=== PATIENT | female | born 1940 | race Caucasian/White ===

== ENCOUNTER 2017-08-03 09:35 | Emergency (ER) | payer OTHER ==
--- NOTE | 2017-08-03 11:55 | RAD REPORT ---
EXAM DESCRIPTION: RAD - Hip Right 2 View - 08/03/2017 11:23 am CLINICAL HISTORY: Hip pain COMPARISON: Right hip 2010. FINDINGS: AP and frog-leg views of the right hip were obtained. SI joint degenerative changes are p resent with sclerotic changes along the sacral ala and ileum. Lower lumbar degenerative changes are p resent but not adequately visualize. No fracture or acute finding of the imaged portions of the right hemipelvis. Hip joint space narrowing is present. There is spurring and sclerotic change along the superior artic ular margin. No AVN or focal femoral head abnormality seen. No fracture or acute bone process seen. D ense arterial tree calcifications are present. No periarticular mass or hematoma. No acute or destruc tive bony process seen. 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 Findings have progressed only minimally from 2011.
--- NOTE | 2017-08-03 13:50 | RAD REPORT ---
EXAM DESCRIPTION: RAD - Chest Single View - 08/03/2017 1:30 pm CLINICAL HISTORY: Fall, hip pain COMPARISON: December 2016 TECHNIQUE: AP portable chest image was obtained 1325 hours . FINDINGS: Lungs are clear. Heart and vasculature are normal. No measurable pleural effusion and no p neumothorax. Bilateral shoulder joint degenerative changes are present. Thoracic spine degenerative c hanges are present incompletely assessed. No acute bone process suspected. No acute aortic findings s uspected. IMPRESSION: No acute cardiopulmonary process. No significant change from comparison.
--- NOTE | 2017-08-03 13:51 | EKG ---
Test Date: 2017-08-03 Test Time: 12:11:15 Electrolysis Investigator: AWA MEASUREMENT RESULTS: Intervals: Rate: 56 WV: 150 QRSD: 76 QT: 474 QTc: 457 [place]: P: 49 WV: 150 QRS: -8 T: 54 INTERPRETIVE STATEMENTS: Sinus bradycardia Nonspecific ST and T wave abnormality Abnormal ECG Compared to ECG 01/05/2017 16:46:35 Left ventricular hypertrophy no longer present ST (T wave) deviation still present Electronically Signed On 08-03-17 13:50:43 CDT by Dallin Espitia
--- NOTE | 2017-08-03 13:51 | EDPHYS ---
Physician Documentation [facility] Name: Lucy Paris Age: 76 yrs Sex: Female : 1940 Arrival Date: 08/03/2017 Time: 09:36 Bed 18 Private MD: Chon Shoemaker ED Physician Aquiles Rose HPI: 08/03 12:40 This 76 yrs old Female presents to ER via Wheelchair with complaints of Hip gaby Pain. 12:40 The patient or guardian reports decreased range of motion. that occurred at home, gaby sustained from unknown reason, twisting motion. The complaints affect the right inguinal area, right iliac crest and right hip. Onset: The symptoms/episode began/occurred 2 day(s) ago. Modifying factors: The symptoms are alleviated by remaining still, the symptoms are aggravated by any movement. Associated signs and symptoms: Pertinent negatives: None. Severity of symptoms: At their worst the symptoms were mild, moderate, in the emergency department the symptoms are unchanged. The patient has not experienced similar symptoms in the past. Historical: - Allergies: 10: Demerol; iw 10:29 PENICILLINS; iw - Home Meds: 10:29 amlodipine-benzapril 10/20 mg daily [Active]; carvedilol 6.25 mg Oral tab 2 tabs 2 tabs iw in morning 1 tab in evening [Active]; doxycycline hyclate 100 mg Oral cap 1 cap once daily [Active]; glipizide 10 mg Oral tab 1 tab 2 times per day [Active]; Lantus 100 unit/mL Sub-Q soln 75 units nightly [Active]; lisinopril 40 mg Oral tab 1 tab once daily [Active]; meloxicam 15 mg Oral tab 1 tab once daily [Active]; pantoprazole 40 mg Oral TbEC 1 tab once daily [Active]; potassium chloride 10 mEq Oral cpER 1 cap 2 times per day [Active]; tolterodine 4 mg Oral cp24 1 cap once daily [Active]; torsemide 20 mg Oral tab 1 tab once daily [Active]; prednisone 5 mg Oral tab once daily [Active]; potassium chloride 10 mEq Oral cpER 1 cap once daily [Active]; clotrimazole-lozenge [Active]; - PMHx: 10:29 breast cancer; Diabetes - NIDDM; Hypertension; iw - PSHx: 10:29 breast surgery; Cholecystectomy; Knee surgery; iw - Immunization history:: Adult Immunizations up to date. - Social history:: Smoking status: Patient/guardian denies using tobacco. - Family history:: not pertinent. ROS: 12:40 Constitutional: Negative for fever, chills, and weight loss, Eyes: Negative for injury, gaby pain, redness, and discharge, ENT: Negative for injury, pain, and discharge, Neck: Negative for injury, pain, and swelling, Cardiovascular: Negative for chest pain, palpitations, and edema, Respiratory: Negative for shortness of breath, cough, wheezing, and pleuritic chest pain, Abdomen/GI: Negative for abdominal pain, nausea, vomiting, diarrhea, and constipation, Back: Negative for injury and pain, : Negative for injury, bleeding, discharge, and swelling, Skin: Negative for injury, rash, and discoloration, Neuro: Negative for headache, weakness, numbness, tingling, and seizure, Psych: Negative for depression, anxiety, suicide ideation, homicidal ideation, and hallucinations, Allergy/Immunology: Negative for hives, rash, and allergies, Endocrine: Negative for neck swelling, polydipsia, polyuria, polyphagia, and marked weight changes, Hematologic/Lymphatic: Negative for swollen nodes, abnormal bleeding, and unusual bruising. 12:40 MS/extremity: Positive for decreased range of motion, pain, of the right femoral area, right iliac crest and right hip. Exam: 12:40 Constitutional: This is a well developed, well nourished patient who is awake, alert, gaby and in no acute distress. Head/Face: Normocephalic, atraumatic. Eyes: Pupils equal round and reactive to light, extra-ocular motions intact. Lids and lashes normal. Conjunctiva and sclera are non-icteric and not injected. Cornea within normal limits. Periorbital areas with no swelling, redness, or edema. ENT: Nares patent. No nasal discharge, no septal abnormalities noted. Tympanic membranes are normal and external auditory canals are clear. Oropharynx with no redness, swelling, or masses, exudates, or evidence of obstruction, uvula midline. Mucous membranes moist. Neck: Trachea midline, no thyromegaly or masses palpated, and no cervical lymphadenopathy. Supple, full range of motion without nuchal rigidity, or vertebral point tenderness. No Meningismus. Chest/axilla: Normal chest wall appearance and motion. Nontender with no deformity. No lesions are appreciated. Cardiovascular: Regular rate and rhythm with a normal S1 and S2. No gallops, murmurs, or rubs. Normal PMI, no JVD. No pulse deficits. Respiratory: Lungs have equal breath sounds bilaterally, clear to auscultation and percussion. No rales, rhonchi or wheezes noted. No increased work of breathing, no retractions or nasal flaring. Abdomen/GI: Soft, non-tender, with normal bowel sounds. No distension or tympany. No guarding or rebound. No evidence of tenderness throughout. Back: No spinal tenderness. No costovertebral tenderness. Full range of motion. Female : Normal external genitalia. Skin: Warm, dry with normal turgor. Normal color with no rashes, no lesions, and no evidence of cellulitis. Neuro: Awake and alert, GCS 15, oriented to person, place, time, and situation. Cranial nerves II-XII grossly intact. Motor strength 5/5 in all extremities. Sensory grossly intact. Cerebellar exam normal. Normal gait. Psych: Awake, alert, with orientation to person, place and time. Behavior, mood, and affect are within normal limits. 12:40 Musculoskeletal/extremity: Extremities: noted in the right hip: decreased ROM, pain, ROM: full passive range of motion, limited active range of motion, Circulation is intact in all extremities. Sensation intact. Compartment Syndrome exam of affected extremity: is normal. Joints: the right hip displays limited range of motion, pain at rest, painful range of motion, DVT Exam: no swelling, no tenderness, negative Homans' sign noted on exam, no appreciated bluish discoloration, no erythema, no increased warmth. Vital Signs: 10:29 BP 132 / 67; Pulse 58; Resp 16; Temp 97.4; Pulse Ox 100% on R/A; Weight 81.65 kg; iw Height 5 ft. 5 in. (165.10 cm); Pain 8/10; 12:30 BP 138 / 72; Pulse 62; Resp 18; Pulse Ox 99% on R/A; em 13:37 BP 142 / 68; Pulse 59; Resp 18; Pulse Ox 99% on R/A; Pain 0/10; em 10:29 Body Mass Index 29.95 (81.65 kg, 165.10 cm) MDM: 12:04 Patient medically screened. [facility] 12:44 Data reviewed: vital signs, nurses notes, radiologic studies, CT scan, plain films. [facility] 08/03 10:30 Order name: Hip Right 2 View XRAY; Complete Time: 13:46 08/03 12:05 Order name: XRAY Chest (1 view) [facility] 08/03 12:47 Order name: Hip Right Wo Con EDIL 08/03 12:05 Order name: EKG; Complete Time: 12:06 [facility] Administered Medications: 14:19 Not Given (Physician Discretion): NS 0.9% 1000 ml IV at 125 ml/hr continuous em Disposition: 08/03/17 13:50 Discharged to Home. Impression: Pain in right hip, Type 1 diabetes mellitus. - Condition is Stable. - Discharge Instructions: Arthralgia, Arthritis, Nonspecific, Musculoskeletal Pain, Hip Pain, Arthritis, Nonspecific, [id number], Arthralgia, [id number]. - Prescriptions for Tylenol- Codeine #3 300-30 mg Oral Tablet - take 2 tablet by ORAL route every 6 hours As needed; 30 tablet. Motrin IB 200 mg Oral Tablet - take 1 tablet by ORAL route every 6 hours As needed as needed with food; 20 tablet. - Medication Reconciliation Form, Thank You Letter, Antibiotic Education, Prescription Opioid Use form. - Follow up: Chon Shoemaker MD; When: 1 - 2 days; Reason: Recheck today's complaints, Continuance of care, Re-evaluation by your physician. - Problem is new. - Symptoms have improved. Signatures: Dispatcher [employer] EDIL Aquiles Rose MD MD cha Munoz, Edgar, ALIGNER TYPEWRITER ALIGNER TYPEWRITER em Lissette Whatley, RN RN iw Corrections: (The following items were deleted from the chart) 14:19 12:05 Cardiac monitoring ordered. [facility] 14:19 12:05 Urine Dipstick-Ancillary ordered. [facility] 14:20 12:06 TROPONIN (EMERG DEPT USE ONLY)+C.LAB.BRZ ordered. EDIL EDMS 14:20 12:10 Urine Culture+BA.LAB.BRZ ordered. EDIL EDMS 14:22 12:06 BASIC METABOLIC PANEL+C.LAB.BRZ ordered. EDIL EDMS 14:22 12:06 BNP+C.LAB.BRZ ordered. EDMS EDMS 12:06 CBC+H.LAB.BRZ ordered. EDMS EDMS 12:06 CKMB+C.LAB.BRZ ordered. EDMS EDMS 12:06 CREATINE PHOSPHOKINASE+C.LAB.BRZ ordered. EDMS EDMS 12:06 HEPATIC FUNCTION+C.LAB.BRZ ordered. EDMS EDMS 12:06 MAGNESIUM+C.LAB.BRZ ordered. EDMS EDMS 12:06 PROTIME (+INR)+COAG.LAB.BRZ ordered. EDMS EDMS 12:06 PTT, ACTIVATED+COAG.LAB.BRZ ordered. EDMS EDMS 12:05 EKG - Nurse/Tech ordered. [facility] em 12:05 O2 Sat Monitoring ordered. [facility] em : 12:05 IV Saline Lock ordered. [facility] em 12:05 Labs collected and sent ordered. [facility] em : 12:05 Oxygen Per Protocol ordered. [facility] em
--- NOTE | 2017-08-03 13:51 | ER ---
Nurse's Notes [facility] Name: Lucy Paris Age: 76 yrs Sex: Female : 1940 Arrival Date: 08/03/2017 Time: 09:36 Bed 18 Private MD: Chon Shoemaker Diagnosis: Pain in right hip;Type 1 diabetes mellitus Presentation: 08/03 10:26 Presenting complaint: Child states: last night was walking and turned, felt a pop in iw right hip, has not been able to out much weight on it. Transition of care: patient was not received from another setting of care. Onset of symptoms was August 02, 2017. Initial Sepsis Screen: Does the patient meet any 2 criteria? No. Patient's initial sepsis screen is negative. Does the patient have a suspected source of infection? No. Patient's initial sepsis screen is negative. Care prior to arrival: None. 10:26 Method Of Arrival: Wheelchair iw 10:26 Acuity: KATHRYN 4 iw Historical: - Allergies: : Demerol; iw 10: PENICILLINS; iw - Home Meds: 10: amlodipine-benzapril 10/20 mg daily [Active]; carvedilol 6.25 mg Oral tab 2 tabs 2 tabs iw in morning 1 tab in evening [Active]; doxycycline hyclate 100 mg Oral cap 1 cap once daily [Active]; glipizide 10 mg Oral tab 1 tab 2 times per day [Active]; Lantus 100 unit/mL Sub-Q soln 75 units nightly [Active]; lisinopril 40 mg Oral tab 1 tab once daily [Active]; meloxicam 15 mg Oral tab 1 tab once daily [Active]; pantoprazole 40 mg Oral TbEC 1 tab once daily [Active]; potassium chloride 10 mEq Oral cpER 1 cap 2 times per day [Active]; tolterodine 4 mg Oral cp24 1 cap once daily [Active]; torsemide 20 mg Oral tab 1 tab once daily [Active]; prednisone 5 mg Oral tab once daily [Active]; potassium chloride 10 mEq Oral cpER 1 cap once daily [Active]; clotrimazole-lozenge [Active]; - PMHx: 10:29 breast cancer; Diabetes - NIDDM; Hypertension; iw - PSHx: 10:29 breast surgery; Cholecystectomy; Knee surgery; iw - Immunization history:: Adult Immunizations up to date. - Social history:: Smoking status: Patient/guardian denies using tobacco. - Family history:: not pertinent. Screenin:21 Abuse screen: Denies threats or abuse. Nutritional screening: No deficits noted. em Tuberculosis screening: No symptoms or risk factors identified. Fall Risk None identified. Assessment: 12:12 General: Appears in no apparent distress. comfortable, Behavior is calm, cooperative, em Reports was walking and turned and heard a pop in the right hip, able to stand on leg but is painful. Pain: Complains of pain in right hip. Neuro: Level of Consciousness is awake, alert, obeys commands, Oriented to person, place, time, situation. Cardiovascular: Capillary refill < 3 seconds Patient's skin is warm and dry. Respiratory: Airway is patent Respiratory effort is even, unlabored, Respiratory pattern is regular, symmetrical. GI: Abdomen is round. : No signs and/or symptoms were reported regarding the genitourinary system. EENT: No signs and/or symptoms were reported regarding the EENT system. Derm: Skin is intact, Skin is pink, warm \T\ dry. Musculoskeletal: Range of motion: limited in right hip. 12:15 Reassessment: Patient appears in no apparent distress at this time. I agree with above iw assessment by Rui Evans LVN. 12:30 Reassessment: Patient appears in no apparent distress at this time. Patient and/or em family updated on plan of care and expected duration. Pain level reassessed. Patient is alert, oriented x 3, equal unlabored respirations, skin warm/dry/pink. pt family request no IV until CT of hip is resulted, Dr. Rose notified, will hold off on IV and labs. Vital Signs: 10:29 BP 132 / 67; Pulse 58; Resp 16; Temp 97.4; Pulse Ox 100% on R/A; Weight 81.65 kg; iw Height 5 ft. 5 in. (165.10 cm); Pain 8/10; 12:30 BP 138 / 72; Pulse 62; Resp 18; Pulse Ox 99% on R/A; em 13:37 BP 142 / 68; Pulse 59; Resp 18; Pulse Ox 99% on R/A; Pain 0/10; em 10:29 Body Mass Index 29.95 (81.65 kg, 165.10 cm) ED Course: 09:36 Patient arrived in ED. mr 09:37 Chon Shoemaker MD is Private Physician. mr 10:27 Triage completed. iw 10:29 Arm band placed on. iw 11:20 X-ray completed. Portable x-ray completed in exam room. Patient tolerated procedure ml well. 11:23 Hip Right 2 View XRAY In Process Unspecified. EDMS 12:03 Aquiles Rose MD is Attending Physician. gaby 12:14 Rui Evans LVN is Primary Nurse. em 12:16 EKG done, by auto technician mechanic. reviewed by Aquiles Rose MD. at1 12:20 Patient has correct armband on for positive identification. Bed in low position. Call em light in reach. Side rails up X2. Adult w/ patient. 12:26 Radiology exam delayed due to patient is not appropriately dressed for the exam at this ml time. 13:27 X-ray completed. Portable x-ray completed in exam room. Patient tolerated procedure sw well. 13:28 XRAY Chest (1 view) In Process Unspecified. EDMS 13:39 Hip Right Wo Con In Process Unspecified. EDMS 13:50 Chon Shoemaker MD is Referral Physician. gaby 14:21 No provider procedures requiring assistance completed. Patient did not have IV access em during this emergency room visit. Administered Medications: 14:19 Not Given (Physician Discretion): NS 0.9% 1000 ml IV at 125 ml/hr continuous em Outcome: 13:50 Discharge ordered by . gaby 14:25 Discharged to home via wheelchair. em 14:25 Condition: good 14:25 Discharge instructions given to patient, Instructed on discharge instructions, follow up and referral plans. medication usage, Demonstrated understanding of instructions, follow-up care, medications, Prescriptions given X 2. 14:29 Patient left the ED. em Signatures: Dispatcher [employer] EDMS Aquiles Rose MD MD cha Rivera, Maria mr Rui Evans LVN LVN em Lissette Whatley, Sammi Chen RN, Amanda, joint cutter machine EKG Tat1 Maame Payan
--- NOTE | 2017-08-03 13:56 | RAD REPORT ---
EXAM DESCRIPTION: CT - Hip Right Wo Con - 08/03/2017 1:39 pm CLINICAL HISTORY: Hip pain following the low-impact trauma. Pain out of proportion to exam findings. COMPARISON: Right hip films same date TECHNIQUE: Axial 2 millimeter thick images of the right hip joint was obtained. Sagittal and coronal reconstruction images were generated and reviewed. FINDINGS: No fracture of the femoral head, neck or intertrochanteric region and no AVN or other foca l femoral head abnormality seen. Femoral head maintains smooth rounded contour. There are degenerativ e changes along the superior acetabular rim not likely did trigger an acute onset of pain symptoms. P atient has SI joint degenerative changes that are only partially imaged. Sacral ala is partially imag ed with no fracture identifiable. No periarticular mass or hematoma. No skeletal muscle or other significant soft tissue finding seen. Arterial calcifications are present. IMPRESSION: Hip joint degenerative changes are present but no fracture, AVN or acute finding identif iable.
== END 2017-08-03 14:29 | disposition home or self-care (01) ==
LOC: ER 09:35
DX: M25.551 Pain in right hip (principal); E10.8 Type 1 diabetes mellitus with unspecified complications; I10 Essential (primary) hypertension
CPT/HCPCS: 71045; 73700; 93005; 99283

== ENCOUNTER 2017-10-28 11:00 | Observation (INO) | payer OTHER ==
--- NOTE | 2017-10-28 11:55 | RAD REPORT ---
EXAM DESCRIPTION: GLODavt Single View10/28/2017 11:48 am CLINICAL HISTORY: Breast cancer COMPARISON: July 2017 FINDINGS: The lungs appear clear of acute infiltrate. The heart is mildly enlarged IMPRESSION: No acute abnormalities displayed
--- NOTE | 2017-10-28 12:03 | RAD REPORT ---
EXAM DESCRIPTION: CT - Head Brain Wo Cont - 10/28/2017 11:55 am CLINICAL HISTORY: Dizziness COMPARISON: December 2016 TECHNIQUE: Computed axial tomography of the head was obtained. IV contrast was not requested. All CT scans are performed using dose optimization technique as appropriate and may include automated exposure control or mA/KV adjustment according to patient size. FINDINGS: An intracranial bleed is not seen . The ventricles are normal in caliber. No extra-axial fluid collection is noted. Mild low-density areas within periventricular, deep and sub cortical white matter likely represent ischemic changes secondary to small vessel disease. Coarse vascular calcifications are present Fluid within the sinuses/ mastoids is not seen. IMPRESSION: No acute intracranial abnormality is seen. If patient's symptoms persist MRI of the bra in would be recommended.
[2017-10-28 12:35] LABS: Absolute Lymphocytes (CBC) 1.8 K/uL (0.7-4.9); Absolute Monocytes 0.9 K/uL (0.1-1.3); Absolute Neutrophil 9.2 K/uL (1.8-8.0); Basophils % 0.5 % (0-1.3); Eosinophils % 1.1 % (0-4.4); Hematocrit 34.9 % (36.0-45.0); Lymphocytes % 14.9 % (15.3-44.8); MCH 27.9 pg (27.0-35.0); MCV 83.7 fL (80-100); MPV 8.6 fL (7.6-11.3); Monocytes % 7.4 % (3.3-12.3); RBC Red Blood Cell Count 4.17 M/uL (3.86-4.86)
[2017-10-28 12:39] LABS: Protime INR 1.13
--- NOTE | 2017-10-28 12:47 | EKG ---
Test Date: 2017-10-28 Test Time: 12:22:06 Fingerprint Technician: AWA MEASUREMENT RESULTS: Intervals: Rate: 64 MA: 160 QRSD: 74 QT: 428 QTc: 441 [place]: P: 25 MA: 160 QRS: -12 T: 43 INTERPRETIVE STATEMENTS: Sinus rhythm with premature atrial complexes Minimal voltage criteria for LVH, may be normal variant Nonspecific ST abnormality Abnormal ECG Compared to ECG 08/03/2017 12:11:15 Atrial premature complex(es) now present Left ventricular hypertrophy now present Sinus bradycardia no longer present ST (T wave) deviation still present Electronically Signed On 10-28-17 12:47:07 CDT by Dallin Espitia
[2017-10-28 12:56] LABS: ALT/SGPT 15 U/L (12-78); AST/SGOT 14 U/L (15-37); Albumin 3.4 g/dL (3.4-5.0); Alkaline Phosphatase 70 U/L (45-117); BUN Blood Urea Nitrogen 16 mg/dL (7-18); Bicarbonate 32 mmol/L (21-32); Bilirubin Direct 0.1 mg/dL (0-0.2); Bilirubin Total 0.4 mg/dL (0.2-1.0); CKMB Creatine Kinase MB < 1.0 ng/mL (0.3-3.6); Creatine Phosphokinase 60 U/L (26-192); Glucose Level 168 mg/dL (74-106); NT PRO-BNP 576 pg/mL (<450); Potassium 3.9 mmol/L (3.5-5.1); Protein, Total 6.7 g/dL (6.4-8.2); Sodium Level 137 mmol/L (136-145)
[2017-10-28 12:57] LABS: Magnesium 1.2 mg/dL (1.8-2.4)
[2017-10-28] MEDS ORDERED: Magnesium Sulfate 1gm IVPB 1 GM/50 ML BAG IV ONE (13:15)
[2017-10-28] MEDS ORDERED: NA CHLORIDE 0.9% 500 ML ONE (13:59)
--- NOTE | 2017-10-28 15:41 | ER ---
Nurse's Notes [facility] Name: Lucy Paris Age: 77 yrs Sex: Female : 1940 Arrival Date: 10/28/2017 Time: 11:04 Bed 13 Private MD: Chon Shoemaker Diagnosis: Dizziness and giddiness;Hypotension Presentation: 10/28 11:14 Presenting complaint: Patient states: " I have been having dizziness for a while now but over this last week it has been worse." Pt reports falling over the weekend, was assisted by EMS but was not taken for treatment, pt reports intermittent dizziness and nausea. Transition of care: patient was not received from another setting of care. Onset of symptoms was October 28, 2017. Risk Assessment: Do you want to hurt yourself or someone else? Patient reports no desire to harm self or others. Initial Sepsis Screen: Does the patient meet any 2 criteria? No. Patient's initial sepsis screen is negative. Does the patient have a suspected source of infection? No. Patient's initial sepsis screen is negative. Care prior to arrival: None. 11:14 Method Of Arrival: Wheelchair ph 11:14 Acuity: KATHRYN 3 ph Historical: - Allergies: 11:19 Demerol; ph 11:19 PENICILLINS; ph - Home Meds: 11:33 mycophenolate mofetil 500 mg oral tab 1 tabs 2 times per day [Active]; prednisone 10 mg ph Oral tab once daily [Active]; clotrimazole 10 mg mucous membrane troc 1 tab 5 times per day [Active]; potassium chloride 10 mEq Oral cpER 1 cap 2 times per day [Active]; doxycycline hyclate 100 mg Oral cap 1 cap once daily [Active]; tolterodine 4 mg oral cp24 1 cap once daily [Active]; torsemide 20 mg oral tab 1 tab once daily [Active]; meloxicam 15 mg oral tab 1 tab once daily [Active]; pantoprazole 40 mg oral TbEC 1 tab once daily [Active]; amlodipine-benazepril 10-20 mg oral cap 1 cap once daily [Active]; carvedilol 6.25 mg oral tab 2 tabs in morning and 1 tab in evening [Active]; - PMHx: 11:19 breast cancer; Diabetes - NIDDM; Hypertension; ph - PSHx: 11:19 breast surgery; Cholecystectomy; Knee surgery; ph - Immunization history:: Adult Immunizations unknown. - Social history:: Smoking status: Patient/guardian denies using tobacco. - Ebola Screening: : No symptoms or risks identified at this time. Screenin:35 Abuse screen: Denies threats or abuse. Denies injuries from another. Nutritional jl7 screening: No deficits noted. Tuberculosis screening: No symptoms or risk factors identified. Fall Risk Fall in past 12 months (25 points). IV access (20 points). Total More Fall Scale indicates High Risk Score (45 or more points). Fall prevention measures have been instituted. Side Rails Up X 2 Placed Close to Nursing Station Frequent Obs/Assessments Occuring Family Present and informed to notify staff if the need to leave the bedside As available patient and family educated on Fall Prevention Program and Strategies. Assessment: 11:30 Reassessment: Pt at CT. jl7 12:00 General: Appears in no apparent distress. comfortable, Behavior is calm, cooperative, jl7 appropriate for age. Pain: Denies pain. Neuro: Level of Consciousness is awake, alert, obeys commands, Oriented to person, place, time, situation, Speech is normal, Facial symmetry appears normal, Reports dizziness, "For a while now. I'm not dizzy right now but I was earlier.". Cardiovascular: Patient's skin is warm and dry. Respiratory: Airway is patent Respiratory effort is even, unlabored, Respiratory pattern is regular, symmetrical. GI: No signs and/or symptoms were reported involving the gastrointestinal system. : No signs and/or symptoms were reported regarding the genitourinary system. EENT: No signs and/or symptoms were reported regarding the EENT system. Derm: Skin is pink, warm \\T\\ dry. Bruising that is green, yellow, on right knee and right acosta. Musculoskeletal: No signs and/or symptoms reported regarding the musculoskeletal system. 13:00 Reassessment: No changes from previously documented assessment. Patient and/or family jl7 updated on plan of care and expected duration. Pain level reassessed. Patient is alert, oriented x 3, equal unlabored respirations, skin warm/dry/pink. 13:40 Reassessment: Provider at bedside discussing plan of care. jl7 Vital Signs: 11:16 BP 113 / 71; Pulse 65; Resp 16; Temp 98.2; Pulse Ox 96% on R/A; Weight 82.55 kg; Height ph 5 ft. 5 in. (165.10 cm); 12:15 BP 98 / 59; Pulse 64; Resp 16; Pulse Ox 97% on R/A; jl7 12:34 BP 94 / 65; Pulse 64; Resp 16 S; Pulse Ox 98% on R/A; Pain 0/10; jl7 13:00 BP 96 / 52; Pulse 66; Resp 18 S; Pulse Ox 99% on R/A; jl7 14:00 BP 90 / 66; Pulse 67; Resp 18; Pulse Ox 98% ; jl7 15:00 BP 112 / 57; Pulse 66; Resp 16; Pulse Ox 100% ; jl7 16:00 BP 101 / 52; Pulse 68; Resp 16; Pulse Ox 98% ; jl7 16:56 BP 101 / 69; Pulse 66; Resp 16; Pulse Ox 100% ; jl7 17:42 BP 114 / 56; Pulse 70; Resp 16; Pulse Ox 99% ; jl7 11:16 Body Mass Index 30.29 (82.55 kg, 165.10 cm) ph ED Course: 11:04 Patient arrived in ED. sb2 11:04 Chon Shoemaker MD is Private Physician. sb2 11:16 Triage completed. ph 11:19 Arm band placed on. ph 11:21 Ben Be PA is PHCP. jmm 11:21 Manolo Delgadillo MD is Attending Physician. jmm 11:46 Leopoldo Aparicio, FRANDY is Primary Nurse. jl7 11:46 XRAY Chest (1 view) In Process Unspecified. EDMS 11:46 X-ray completed. Portable x-ray completed in exam room. Patient tolerated procedure sw well. 11:54 CT completed. Patient tolerated procedure well. Patient moved to CT. Patient moved back mw3 from CT. 11:55 CT Head Brain wo Cont In Process Unspecified. EDMS 12:05 Initial lab(s) drawn, by me, sent to lab. Inserted saline lock: 22 gauge in left jl7 forearm, using aseptic technique. Blood collected. 12:35 Patient has correct armband on for positive identification. Placed in gown. Bed in low jl7 position. Call light in reach. Side rails up X2. monitoring analyst on. Pulse ox on. NIBP on. Warm blanket given. 12:40 EKG done, by opto mechanical technician. reviewed by Ben ENAMORADO. at1 12:57 Notified Nurse Practitioner and/or Physician Counter Clerk of a critical lab result(s), dm5 1.2. 15:38 Chon Shoemaker MD is Hospitalizing Provider. [facility] 16:45 Repeat lab(s) drawn. by wy, sent to lab. [facility] 18:35 No provider procedures requiring assistance completed. Patient admitted, IV remains in jl7 place. Administered Medications: 13:20 Drug: Magnesium Sulfate 1 grams Route: IVPB; Infused Over: 1 hrs; Site: left forearm; 7 14:20 Follow up: Response: No adverse reaction; IV Status: Completed infusion [facility] 13:59 Drug: NS 0.9% 500 ml Route: IV; Rate: bolus; Site: left forearm; 7 14:45 Follow up: Response: No adverse reaction; IV Status: Completed infusion [facility] Outcome: 15:40 Decision to Hospitalize by Provider. [facility] 18:35 Admitted to Tele accompanied by tech, family with patient, via wheelchair, room 229, jl7 with chart, Report called to FRANDY Morrison 18:35 Condition: stable 18:35 Discharge instructions given to patient, family, Instructed on the need for admit, Demonstrated understanding of instructions. 18:36 Patient left the ED. [facility] Signatures: Dispatcher [employer] EDMS Neha Badillo, RN RN dm5 Ben Be PA PA María boyd, casino floor runner EKG Tat1 Jennifer Oh, RN RN Maame Payan Jahala, RN RN jl7 Judith Swift sb2 Ernestina Love mw3
--- NOTE | 2017-10-28 15:41 | EDPHYS ---
Physician Documentation [facility] Name: Lucy Paris Age: 77 yrs Sex: Female : 1940 Arrival Date: 10/28/2017 Time: 11:04 Bed 13 Private MD: Chon Shoemaker ED Physician Manolo Delgadillo HPI: 10/28 11:43 This 77 yrs old Female presents to ER via Wheelchair with complaints of jmm Dizziness, Doesn't Feel Right, FALLING. 11:43 The patient presents with dizziness. Onset: The symptoms/episode began/occurred jmm chronic. Context: occurred at home, occurred while the patient was walking. Associated signs and symptoms: Pertinent negatives: chest pain, confusion, headache, numbness, shortness of breath. This is a 77 year old female with a history of htn that presents to the ED with dizziness, weakness, malaise. The patient states that on Thursday evening she collapsed after getting up from using the restroom. Patient states she has had worsening dizziness, malaise, states that she does not feel right. Patient denies chest pain, abdominal pain, or shortness of breath. . Historical: - Allergies: 11:19 Demerol; ph 11:19 PENICILLINS; ph - Home Meds: 11:33 mycophenolate mofetil 500 mg oral tab 1 tabs 2 times per day [Active]; prednisone 10 mg ph Oral tab once daily [Active]; clotrimazole 10 mg mucous membrane troc 1 tab 5 times per day [Active]; potassium chloride 10 mEq Oral cpER 1 cap 2 times per day [Active]; doxycycline hyclate 100 mg Oral cap 1 cap once daily [Active]; tolterodine 4 mg oral cp24 1 cap once daily [Active]; torsemide 20 mg oral tab 1 tab once daily [Active]; meloxicam 15 mg oral tab 1 tab once daily [Active]; pantoprazole 40 mg oral TbEC 1 tab once daily [Active]; amlodipine-benazepril 10-20 mg oral cap 1 cap once daily [Active]; carvedilol 6.25 mg oral tab 2 tabs in morning and 1 tab in evening [Active]; - PMHx: 11:19 breast cancer; Diabetes - NIDDM; Hypertension; ph - PSHx: 11:19 breast surgery; Cholecystectomy; Knee surgery; ph - Immunization history:: Adult Immunizations unknown. - Social history:: Smoking status: Patient/guardian denies using tobacco. - Ebola Screening: : No symptoms or risks identified at this time. ROS: 11:43 Eyes: Negative for injury, pain, redness, and discharge, Cardiovascular: Negative for jmm chest pain, palpitations, and edema, Respiratory: Negative for shortness of breath, cough, wheezing, and pleuritic chest pain, Abdomen/GI: Negative for abdominal pain, nausea, vomiting, diarrhea, and constipation, Back: Negative for injury and pain. 11:43 Constitutional: Positive for malaise. 11:43 Neuro: Positive for dizziness, near syncope. 11:43 All other systems are negative. Exam: 11:43 Constitutional: This is a well developed, well nourished patient who is awake, alert, jmm and in no acute distress. Head/Face: atraumatic. Chest/axilla: Normal chest wall appearance and motion. Cardiovascular: Regular rate and rhythm. No edema appreciated Respiratory: Normal respirations, no respiratory distress appreciated Abdomen/GI: Non distended, soft Back: Normal ROM 11:43 Respiratory: the patient does not display signs of respiratory distress, Respirations: normal, Breath sounds: are clear throughout. 11:43 Skin: Appearance: Color: normal in color. 11:43 Neuro: Orientation: is normal, Mentation: is normal, Memory: is normal, Cerebellar function: normal finger to nose testing, Gait: is steady. 11:43 Psych: Behavior/mood is pleasant, cooperative. Vital Signs: 11:16 BP 113 / 71; Pulse 65; Resp 16; Temp 98.2; Pulse Ox 96% on R/A; Weight 82.55 kg; Height ph 5 ft. 5 in. (165.10 cm); 12:15 BP 98 / 59; Pulse 64; Resp 16; Pulse Ox 97% on R/A; jl7 12:34 BP 94 / 65; Pulse 64; Resp 16 S; Pulse Ox 98% on R/A; Pain 0/10; jl7 13:00 BP 96 / 52; Pulse 66; Resp 18 S; Pulse Ox 99% on R/A; jl7 14:00 BP 90 / 66; Pulse 67; Resp 18; Pulse Ox 98% ; jl7 15:00 BP 112 / 57; Pulse 66; Resp 16; Pulse Ox 100% ; jl7 16:00 BP 101 / 52; Pulse 68; Resp 16; Pulse Ox 98% ; jl7 16:56 BP 101 / 69; Pulse 66; Resp 16; Pulse Ox 100% ; jl7 17:42 BP 114 / 56; Pulse 70; Resp 16; Pulse Ox 99% ; jl7 11:16 Body Mass Index 30.29 (82.55 kg, 165.10 cm) ph MDM: 11:35 Patient medically screened. [facility] 11:43 ED course: I discussed the patient with Dr. Shoemaker whom accepts admission for further [facility] evaluation due to concerns of medication induced hypotension vs TIA. . 15:36 Data reviewed: vital signs, nurses notes, lab test result(s), EKG, radiologic studies, [facility] CT scan, plain films. Counseling: I had a detailed discussion with the patient and/or guardian regarding: the historical points, exam findings, and any diagnostic results supporting the discharge/admit diagnosis, lab results, radiology results, the need for further work-up and treatment in the hospital. 15:50 ED course: I discussed the patient with Dr. Shoemaker whom accepted admission. . [facility] 10/28 11:36 Order name: Basic Metabolic Panel; Complete Time: 13: [facility] 10/28 11:36 Order name: CBC with Diff; Complete Time: 13: [facility] 10/28 11:36 Order name: Ckmb; Complete Time: 13: [facility] 10/28 11:36 Order name: CPK; Complete Time: 13: [facility] 10/28 11:36 Order name: LFT's; Complete Time: 13: [facility] 10/28 11:36 Order name: Magnesium; Complete Time: 13: [facility] 10/28 11:36 Order name: NT PRO-BNP; Complete Time: 13: [facility] 10/28 11:36 Order name: PT-INR; Complete Time: 13: [facility] 10/28 11:36 Order name: Ptt, Activated; Complete Time: 13: [facility] 10/28 11:36 Order name: Troponin (emerg Dept Use Only); Complete Time: 13: [facility] 10/28 15:55 Order name: Basic Metabolic Panel [facility] 10/28 15:55 Order name: Basic Metabolic Panel [facility] 10/28 15:55 Order name: CBC with Automated Diff EDMS 10/28 15:55 Order name: CBC with Automated Diff EDMS 10/28 11:36 Order name: XRAY Chest (1 view); Complete Time: 12:04 [facility] 10/28 11:36 Order name: EKG; Complete Time: 11:37 [facility] 10/28 11:36 Order name: Cardiac monitoring; Complete Time: 12:31 [facility] 10/28 11:36 Order name: EKG - Nurse/Tech; Complete Time: 12:30 [facility] 10/28 11:36 Order name: IV Saline Lock; Complete Time: 12:30 [facility] 10/28 11:36 Order name: CT Head Brain wo Cont; Complete Time: 12:04 [facility] 10/28 15:55 Order name: Regular EDMS 10/28 15:55 Order name: EKG Electrocardiogram [facility] 10/28 15:55 Order name: EKG Electrocardiogram EDMS 10/28 15:55 Order name: EKG Electrocardiogram [facility] 10/28 15:55 Order name: EKG Electrocardiogram [facility] 10/28 15:55 Order name: Troponin I [facility] 10/28 15:55 Order name: Troponin I; Complete Time: 17:51 EDMS 10/28 15:55 Order name: Troponin I [facility] 10/28 11:36 Order name: Labs collected and sent; Complete Time: 12:30 [facility] 10/28 11:36 Order name: O2 Per Protocol; Complete Time: 12:30 [facility] 10/28 11:36 Order name: O2 Sat Monitoring; Complete Time: 12:30 [facility] 10/28 11:36 Order name: Urine Dipstick-Ancillary (obtain specimen); Complete Time: 16:55 jm Administered Medications: 13:20 Drug: Magnesium Sulfate 1 grams Route: IVPB; Infused Over: 1 hrs; Site: left forearm; jl7 14:20 Follow up: Response: No adverse reaction; IV Status: Completed infusion jl7 13:59 Drug: NS 0.9% 500 ml Route: IV; Rate: bolus; Site: left forearm; jl7 14:45 Follow up: Response: No adverse reaction; IV Status: Completed infusion jl7 Disposition: 10/28/17 15:40 Hospitalization ordered by Chon Shoemaker for Observation. Preliminary diagnosis are Dizziness and giddiness, Hypotension. - Bed requested for Telemetry/MedSurg (observation). - Status is Observation. jl7 - Condition is Stable. - Problem is new. - Symptoms are unchanged. UTI on Admission? Yes Addendum: 10/30/2017 19:57 Co-signature as Attending Physician, Manolo Delgadillo MD I agree with the assessment and w a plan of care. Signatures: Dispatcher [employer] EDKesha Aparicio, RN RN Ben Garcia PA PA jmm Hall, Patricia RN RN Leopoldo Aparicio RN RN jl7 Manolo Delgadillo MD MD wa Corrections: (The following items were deleted from the chart) 10/28 17:09 15:40 Hospitalization Ordered by Chon Shoemaker MD for Observation. Preliminary diagnosis is Dizziness and giddiness; Hypotension. Bed requested for Telemetry/MedSurg (observation). Status is Observation. Condition is Stable. Problem is new. Symptoms are unchanged. UTI on Admission? Yes. [facility] 18:36 17:09 10/28/2017 15:40 Hospitalization Ordered by Chon Shoemaker MD for Observation. jl7 Preliminary diagnosis is Dizziness and giddiness; Hypotension. Bed requested for Telemetry/MedSurg (observation). Status is Observation. Condition is Stable. Problem is new. Symptoms are unchanged. UTI on Admission? Yes. 18:44 15:36 Counseling: I had a detailed discussion with the patient and/or guardian allison regarding: the historical points, exam findings, and any diagnostic results supporting the discharge/admit diagnosis, the need for outpatient follow up, to return to the emergency department if symptoms worsen or persist or if there are any questions or concerns that arise at home, allison
[2017-10-28] MEDS ORDERED: ONDANSETRON 4 MG/2 ML VIAL IV PRN (15:52)
[2017-10-28] MEDS ORDERED: ACETAMINOPHEN 500 MG TAB PO PRN (15:52)
[2017-10-28] MEDS: NITROFURAN MACRO 100 MG CAP PO SCH (22:21)
[2017-10-29 05:11] LABS: Absolute Lymphocytes (CBC) 1.7 K/uL (0.7-4.9); Absolute Monocytes 0.7 K/uL (0.1-1.3); Basophils % 0.5 % (0-1.3); Eosinophils % 1.3 % (0-4.4); Hematocrit 32.1 % (36.0-45.0); Lymphocytes % 22.7 % (15.3-44.8); MCH 28.4 pg (27.0-35.0); MCV 84.1 fL (80-100); MPV 8.7 fL (7.6-11.3); Monocytes % 8.8 % (3.3-12.3); RBC Red Blood Cell Count 3.81 M/uL (3.86-4.86)
[2017-10-29 05:37] LABS: Potassium 3.7 mmol/L (3.5-5.1)
[2017-10-29 08:30] LABS: Urine Appearance CLEAR; Urine Bilirubin NEGATIVE (NEG); Urine Blood NEGATIVE (NEG); Urine Color YELLOW; Urine Glucose 2+ (NEG); Urine Protein NEGATIVE (NEG); Urine Urobilinogen 0.2 mg/dL (0.2-1.0); Urine pH 7.5 (5.0-7.0)
[2017-10-29 08:47] LABS: Urine Microscopic Reflex NO UMIC
[2017-10-29] MEDS: NITROFURAN MACRO 100 MG CAP PO SCH ×2 (10:06→18:18)
[2017-10-29] MEDS: ASPIRIN EC 81 MG TAB PO SCH (10:07)
[2017-10-29] MEDS ORDERED: BISACODYL 10 MG RECTAL SUPP PR PRN (14:32)
[2017-10-29] MEDS: [UNRECOGNIZED DRUG - OTHER] PO SCH (21:00)
[2017-10-29] MEDS: HOME MED 1 EA UNK (Mycophenolate Mofetil [Cellcept] 500 MG) PO SCH (21:00)
[2017-10-29] MEDS: CA CITRATE PO SCH (21:00)
[2017-10-29] MEDS: B6 PO SCH (21:00)
[2017-10-29] MEDS: VIT D3 PO SCH (21:00)
[2017-10-29] MEDS: MGOX PO SCH (21:00)
[2017-10-29] MEDS: CARVEDILOL 3.125 MG TAB PO SCH (22:02)
[2017-10-29] MEDS: CLOTRIMAZOLE 10 MG TROCHE PO SCH (22:02)
--- NOTE | 2017-10-30 03:16 | HP ---
Date of Admission: 10/28/2017 Entrance Complaint: Fall, general malaise, vertigo. History Of Present Illness: The patient has had numerous falls over the past few months. She was ho spitalized about 6 months ago with possibility of having vasovagal syncope and/or hypotensive episode . Her blood pressure at that time was modified as well as her diabetic medicine. She states she has noticed some increase in vertigo, positional especially, over the past few weeks and has also had so me decreased mental function. She continues to live alone. Past History: The patient has a long history of IDDM in the relatively good control using various re gimens. She also has a history of hypertension which has also been difficult to control, however, wi th modifications this has been relatively good. In fact, this is a possibility as this is being too old and causing her present status. Social History: Nonsmoker and nondrinker. Family History: Noncontributory. Physical Examination: General: The patient is a slightly obese, elderly female, orientated. Vital Signs: Stable. Head and Neck: Normocephalic. Pupils are equal and reactive to light and accommodation. Fundi negative. Trachea midline. Thyroid not palpable. ENT: Negative. Chest: Clear to P and A. Breasts: Pendulous, negative. Cardiovascular: PMI midclavicular line. Heart: Sounds normal. Peripheral pulses are present and equal bilaterally. Abdomen: Obese. No organomegaly. Bowel sounds present. Extremities: Good tone and movement. Bilateral reflexes physiologic. Neurological: Deferred. Rectal: Deferred. Pelvic: Deferred. Impression: Vasovagal syncope, possible transient ischemic attack; hypertension and hypotension, poo r control; insulin-dependent diabetes mellitus, good control. Plan: The patient will be admitted and monitored. Make sure there is no CULINARY CHEF problem. Neurology will be consulted. Depending on the results of some of these studies and blood pressure, various changes may be made to her medications. HR/MODL Voice ID: [id number]
[2017-10-30 05:25] LABS: Absolute Lymphocytes (CBC) 1.5 K/uL (0.7-4.9); Absolute Monocytes 0.7 K/uL (0.1-1.3); Absolute Neutrophil 4.9 K/uL (1.8-8.0); Basophils % 0.6 % (0-1.3); Eosinophils % 1.6 % (0-4.4); Hematocrit 31.7 % (36.0-45.0); Lymphocytes % 20.9 % (15.3-44.8); MCH 28.6 pg (27.0-35.0); MCV 84.2 fL (80-100); MPV 8.6 fL (7.6-11.3); Monocytes % 9.2 % (3.3-12.3); RBC Red Blood Cell Count 3.76 M/uL (3.86-4.86)
[2017-10-30 06:30] LABS: Potassium 3.7 mmol/L (3.5-5.1)
[2017-10-30] MEDS: CLOTRIMAZOLE 10 MG TROCHE PO SCH ×5 (08:00→21:00)
[2017-10-30] MEDS ORDERED: INSULIN DETEMIR 100 UNIT/1 ML INSULIN SQ SCH ×3 (09:00→21:00)
[2017-10-30] MEDS: HOME MED 1 EA UNK (Mycophenolate Mofetil [Cellcept] 500 MG) PO SCH (09:00)
[2017-10-30] MEDS: CA CITRATE PO SCH (09:00)
[2017-10-30] MEDS: VIT D3 PO SCH (09:00)
[2017-10-30] MEDS: MGOX PO SCH (09:00)
[2017-10-30] MEDS: B6 PO SCH (09:00)
[2017-10-30] MEDS: [UNRECOGNIZED DRUG - OTHER] PO SCH (09:00)
[2017-10-30] MEDS: NITROFURAN MACRO 100 MG CAP PO SCH ×2 (09:35→17:55)
[2017-10-30] MEDS: ASPIRIN EC 81 MG TAB PO SCH (09:35)
[2017-10-30] MEDS: PANTOPRAZOLE 40MG TABLET PO SCH (09:36)
[2017-10-30] MEDS: TOLTERODINE LA 4 MG CAP PO SCH (09:36)
[2017-10-30] MEDS: CARVEDILOL 3.125 MG TAB PO SCH ×2 (09:36→20:54)
[2017-10-30] MEDS: predniSONE 10 MG TAB PO SCH (09:36)
[2017-10-30] MEDS: CITRACAL PLUS PO SCH ×2 (14:58→20:50)
[2017-10-30] MEDS ORDERED: D50W 25 GM/50 ML SYRINGE IV PRN (16:17)
[2017-10-30] MEDS ORDERED: GLUCAGON 1 MG/VIAL IM PRN (16:17)
[2017-10-30] MEDS: INSULIN -REGULAR HUMAN 50 UNIT/0.5 ML ML SQ SCH ×2 (17:54→21:54)
[2017-10-30] MEDS ORDERED: MAGNESIUM SULFATE 1 gm IVPB 1 GM/100 ML BAG IV ONE (20:00)
[2017-10-30] MEDS ORDERED: Magnesium Sulfate 1gm IVPB 1 GM/50 ML BAG IV ONE (20:48)
[2017-10-30] MEDS: MYCOPHENOLATE 500 MG PO SCH (20:53)
[2017-10-31 05:37] LABS: Magnesium 2.1 mg/dL (1.8-2.4); Potassium 3.5 mmol/L (3.5-5.1)
[2017-10-31] MEDS: INSULIN -REGULAR HUMAN 50 UNIT/0.5 ML ML SQ SCH ×2 (07:30→11:30)
[2017-10-31] MEDS: CLOTRIMAZOLE 10 MG TROCHE PO SCH ×3 (08:00→14:00)
[2017-10-31] MEDS: MYCOPHENOLATE 500 MG PO SCH (10:17)
[2017-10-31] MEDS: CITRACAL PLUS PO SCH ×2 (10:18→14:50)
[2017-10-31] MEDS: NITROFURAN MACRO 100 MG CAP PO SCH (10:18)
[2017-10-31] MEDS: TOLTERODINE LA 4 MG CAP PO SCH (10:18)
[2017-10-31] MEDS: PANTOPRAZOLE 40MG TABLET PO SCH (10:19)
[2017-10-31] MEDS: ASPIRIN EC 81 MG TAB PO SCH (10:19)
[2017-10-31] MEDS: CARVEDILOL 3.125 MG TAB PO SCH (10:19)
[2017-10-31] MEDS: predniSONE 10 MG TAB PO SCH (10:19)
--- NOTE | 2017-10-31 16:18 | PN ---
The patient states she feels considerably better as far as her constipation. Episodes of vertigo hav e also improved. I think the more likely diagnosis of TIA and syncope or near syncope is the change in her blood pressure, it has been monitored on a couple of occasions and she obviously has some hypo tensive episodes. Therefore, her doses of blood pressure medicine will be adjusted prior to her disc harge, which should be done tomorrow. Blood sugars are also elevated and therefore we will increase her insulin, place her on a sliding scale. Magnesium also needs to be replaced. HR/MODL Voice ID: [id number] Report ID: [id number]
--- NOTE | 2017-11-01 16:55 | PN ---
Date of Progress Note: 10/31/2017 Subjective: The patient continues to improve. Her blood sugars are much better on her increased ins ulin dose. However, she is still somewhat uncertain about her medication. This was gone over with h er in some detail by myself and the nurse. After much discussion, we decided a home health would be of value as she still lives alone repeated. Repeated blood pressure readings do confirm a diagnosis of syncope for her falls related to postural hypotension. Therefore, modification of her medicine tang s been made. She will be followed up as an outpatient in my office in 48 hours. HR/MODL Voice ID: [id number] Report ID: [id number]
== END 2017-10-31 16:12 | disposition home health service (06) ==
LOC: ER 11:00 → ERHOLD 15:50 → 2ND 17:56
PROVIDERS: ADMIT Family Medicine; ATTEND Family Medicine
DX: I95.1 Orthostatic hypotension (principal); K59.00 Constipation, unspecified; I10 Essential (primary) hypertension; E11.9 Type 2 diabetes mellitus without complications; E66.9 Obesity, unspecified; Z68.30 Body mass index [BMI] 30.0-30.9, adult
CPT/HCPCS: 36415 ×3; 70450; 71045; 80048 ×4; 80076; 81003; 82550; 82553; 82962 ×4; 83036; 83735 ×4; 83880; 84484 ×3; 85025 ×3; 85610; 85730; 93005; 96365; 99285; G0378 ×2; J2405; J3475 ×2; 96361; J7512

== ENCOUNTER 2018-09-07 14:28 | Inpatient (IN) | payer OTHER ==
--- OUTSIDE RECORDS SUMMARY | 2018-09-07 14:31 | XMS REPORT ---
:1940 [facility] Address [address] [place] [id number] Care Team Providers Name Role Phone Unavailable Unavailable Unavailable Problems This patient has no known problems. Allergies, Adverse Reactions, Alerts This patient has no known allergies or adverse reactions. Medications This patient has no known medications.
--- NOTE | 2018-09-07 16:06 | RAD REPORT ---
EXAM DESCRIPTION: RAD - Tib Fib Left - 09/07/2018 3:41 pm CLINICAL HISTORY: PAIN Pain, foot infection, bruising. COMPARISON: None FINDINGS: Left tibia/ fibula, ankle and foot- multiple projections are submitted The bones are demineralized. Prominent vascular calcifications are evident. Focal soft tissue swellin g is seen pretibial soft tissues of the upper leg. Generalized swelling of the foot and ankle region also noted. Evidence of previous bunionectomy seen. Large posterior and plantar calcaneal spurs. A fracture is not apparent. Radiographic findings of os teomyelitis are not seen. IMPRESSION: Significant soft tissue swelling without fracture or evidence of osteomyelitis at this t johanny.
[2018-09-07 16:19] LABS: Absolute Lymphocytes (CBC) 1.1 K/uL (0.7-4.9); Absolute Monocytes 0.8 K/uL (0.1-1.3); Absolute Neutrophil 14.4 K/uL (1.8-8.0); Basophils % 0.2 % (0-1.3); Eosinophils % 0.4 % (0-4.4); Hematocrit 37.1 % (36.0-45.0); Lymphocytes % 6.5 % (15.3-44.8); MPV 8.3 fL (7.6-11.3); Monocytes % 4.6 % (3.3-12.3); RBC Red Blood Cell Count 4.34 M/uL (3.86-4.86)
[2018-09-07 16:43] LABS: Albumin 3.4 g/dL (3.4-5.0); Bilirubin Total 0.4 mg/dL (0.2-1.0); Potassium 4.1 mmol/L (3.5-5.1); Protein, Total 7.2 g/dL (6.4-8.2)
[2018-09-07] MEDS ORDERED: CLINDAMYCIN INJ 600 MG in NA CHLORIDE 0.9% 50 ML IV ONE (17:00)
--- NOTE | 2018-09-07 17:14 | EDPHYS ---
Physician Documentation [facility] Name: Lucy Paris Age: 77 yrs Sex: Female : 1940 Arrival Date: 09/07/2018 Time: 14:30 Bed 8 Private MD: Chon Shoemaker ED Physician Lanny Murray HPI: 09/07 15:43 This 77 yrs old Female presents to ER via Wheelchair with complaints of Leg ma2 Infection. 15:43 fell 2 weeks ago here with left foot pain and persistent swelling and discoloration . ma2 The complaints affect the left foot and left leg. Onset: The symptoms/episode began/occurred gradually, 1 week(s) ago. The complaints affect the medial aspect of left calf, left medial ankle and medial aspect of left foot. Historical: - Allergies: 14:39 Demerol; hb 14:39 PENICILLINS; hb - Home Meds: 14:43 mycophenolate mofetil 500 mg Oral tab 1 tabs 2 times per day [Active]; tw2 amlodipine-benazepril 10-20 mg Oral cap 1 cap once daily [Active]; carvedilol 6.25 mg Oral tab 2 tabs in morning and 1 tab in evening [Active]; clotrimazole 10 mg mucous membrane troc 1 tab 5 times per day [Active]; doxycycline hyclate 100 mg Oral cap 1 cap once daily [Active]; meloxicam 15 mg Oral tab 1 tab once daily [Active]; pantoprazole 40 mg Oral TbEC 1 tab once daily [Active]; potassium chloride 10 mEq Oral cpER 1 cap 2 times per day [Active]; prednisone 10 mg Oral tab once daily [Active]; tolterodine 4 mg Oral cp24 1 cap once daily [Active]; torsemide 20 mg Oral tab 1 tab once daily [Active]; - PMHx: 14:46 breast cancer; Diabetes - NIDDM; Hypertension; ph 14:43 Diabetes - NIDDM; breast cancer; Hypertension; tw2 - PSHx: 14:46 breast surgery; Cholecystectomy; Knee surgery; ph 14:43 breast surgery; Cholecystectomy; Knee surgery; tw2 - Immunization history:: Adult Immunizations up to date. - Social history:: Smoking status: Patient/guardian denies using tobacco, Patient/guardian denies using alcohol, street drugs, The patient lives with family. - Ebola Screening: : No symptoms or risks identified at this time. - Family history:: not pertinent. ROS: 15:43 Constitutional: Negative for fever, chills, and weight loss, Neck: Negative for injury, ma2 pain, and swelling, Cardiovascular: Negative for chest pain, palpitations, and edema, Respiratory: Negative for shortness of breath, cough, wheezing, and pleuritic chest pain, Abdomen/GI: Negative for abdominal pain, nausea, diarrhea, and constipation, : Negative for injury, bleeding, discharge, and swelling, Skin: Negative for injury, rash, and discoloration, Neuro: Negative for headache, weakness, numbness, tingling, and seizure. 15:43 MS/extremity: Positive for contusion, decreased range of motion, ecchymosis, erythema, warmth, Negative for abrasion, paresthesias, puncture. Exam: 15:43 Constitutional: This is a well developed, well nourished patient who is awake, alert, ma2 and in no acute distress. Head/Face: Normocephalic, atraumatic. Chest/axilla: Normal chest wall appearance and motion. Nontender with no deformity. No lesions are appreciated. Cardiovascular: Regular rate and rhythm with a normal S1 and S2. No gallops, murmurs, or rubs. Normal PMI, no JVD. No pulse deficits. Respiratory: Lungs have equal breath sounds bilaterally, clear to auscultation and percussion. No rales, rhonchi or wheezes noted. No increased work of breathing, no retractions or nasal flaring. Abdomen/GI: Soft, non-tender, with normal bowel sounds. No distension or tympany. No guarding or rebound. No evidence of tenderness throughout. Skin: Warm, dry with normal turgor. Normal color with no rashes, no lesions, and no evidence of cellulitis. Neuro: Awake and alert, GCS 15, oriented to person, place, time, and situation. Cranial nerves II-XII grossly intact. Motor strength 5/5 in all extremities. Sensory grossly intact. Cerebellar exam normal. Normal gait. 15:43 Musculoskeletal/extremity: Extremities: grossly normal except: tenderness, left foot and leg edema and cellulitis no fluctuance , ROM: intact in all extremities, Pulses: are normal with no appreciated deficits, Sensation intact. Compartment Syndrome exam of affected extremity: is normal. Weight bearing: can bear weight with assistance only, DVT Exam: No signs of deep vein thrombosis. Vital Signs: 14:38 BP 131 / 65; Pulse 66; Resp 16; Temp 98.9; Pulse Ox 100% on R/A; Weight 83.91 kg; hb Height 5 ft. 4 in. (162.56 cm); Pain 8/10; 15:40 BP 138 / 70; Pulse 66; Resp 17; Pulse Ox 99% on R/A; tw2 16:40 BP 135 / 66; Pulse 66; Resp 17; Pulse Ox 99% on R/A; tw2 17:41 BP 125 / 75; Pulse 65; Resp 17; Pulse Ox 100% on R/A; tw2 18:49 BP 131 / 58; Pulse 65; Resp 17; Pulse Ox 99% on R/A; tw2 19:36 BP 126 / 66; Pulse 65; Resp 18; Temp 97.1; Pulse Ox 99% ; aa1 14:38 Body Mass Index 31.75 (83.91 kg, 162.56 cm) hb MDM: 15:03 Patient medically screened. ma2 17:12 Differential diagnosis: left leg cellulitis elevated wbc. Data reviewed: vital signs, mn2 nurses notes. Counseling: I had a detailed discussion with the patient and/or guardian regarding: the historical points, exam findings, and any diagnostic results supporting the discharge/admit diagnosis, the presence of at least one elevated blood pressure reading (>120/80) during this emergency department visit, the need for further work-up and treatment in the hospital. Response to treatment: the patient's symptoms have markedly improved after treatment. 09/07 15:19 Order name: Lactate [facility] 09/07 15:19 Order name: Blood Culture Adult (2) [facility] 09/07 15:19 Order name: CBC with Diff [facility] 09/07 15:19 Order name: CMP; Complete Time: 16:57 [facility] 09/07 15:22 Order name: Lactate; Complete Time: 16:57 [facility] 09/07 16:24 Order name: CBC Smear Scan [facility] 09/07 15:21 Order name: Foot Left 3 View XRAY [facility] 09/07 15:21 Order name: Ankle Left 3 View XRAY [facility] 09/07 15:21 Order name: Tib Fib Left XRAY; Complete Time: 16:13 ma 09/07 15:22 Order name: IV Start; Complete Time: 16:09 tw2 09/07 15:38 Order name: Social Service Consult; Complete Time: 17:13 [facility] 09/07 17:13 Order name: Diet Ada 1800 Selvin; Complete Time: 17:13 tw2 Administered Medications: 16:25 Drug: Clindamycin 600 mg Route: IVPB; Infused Over: 30 mins; Site: left antecubital; tw2 17:02 Follow up: Response: No adverse reaction; IV Status: Completed infusion tw2 Disposition: 09/07/18 17:13 Hospitalization ordered by Vanessa Ospina for Observation. Preliminary diagnosis is Cellulitis and acute lymphangitis of other parts of limb - left leg. - Bed requested for Telemetry/MedSurg (observation). - Status is Observation. aa1 - Condition is Stable. - Problem is new. - Symptoms have improved. UTI on Admission? No Signatures: Dispatcher [employer] [facility] Barbara Rogers bd Vanesa Brewster RN RN aa1 Jennifer Oh RN RN Daisy Olivares RN FRANDY Eva Avila RN RN tw2 Lanny Murray MD MD ma2 Corrections: (The following items were deleted from the chart) 18:23 17:13 Hospitalization Ordered by Vanessa Ospina MD for Observation. Preliminary diagnosis bd is Cellulitis and acute lymphangitis of other parts of limb - left leg. Bed requested for Telemetry/MedSurg (observation). Status is Observation. Condition is Stable. Problem is new. Symptoms have improved. UTI on Admission? No. ma2 20:00 18:23 09/07/2018 17:13 Hospitalization Ordered by Vanessa Ospina MD for Observation. aa1 Preliminary diagnosis is Cellulitis and acute lymphangitis of other parts of limb - left leg. Bed requested for Telemetry/MedSurg (observation). Status is Observation. Condition is Stable. Problem is new. Symptoms have improved. UTI on Admission? No. bd
--- NOTE | 2018-09-07 17:14 | ER ---
Nurse's Notes [facility] Name: Lucy Paris Age: 77 yrs Sex: Female : 1940 Arrival Date: 09/07/2018 Time: 14:30 Bed 8 Private MD: Chon Shoemaker Diagnosis: Cellulitis and acute lymphangitis of other parts of limb-left leg Presentation: 09/07 14:36 Presenting complaint: Sent by Dr. Shoemaker for left foot infection and left lower leg hb swelling x 2 weeks. Transition of care: patient was not received from another setting of care. Onset of symptoms is unknown. Risk Assessment: Do you want to hurt yourself or someone else? Patient reports no desire to harm self or others. Care prior to arrival: None. 14:36 Method Of Arrival: Wheelchair hb 14:36 Acuity: KATHRYN 3 hb 14:41 Initial Sepsis Screen: Does the patient meet any 2 criteria? No. Patient's initial tw2 sepsis screen is negative. Does the patient have a suspected source of infection? Yes: Skin breakdown/wound. Historical: - Allergies: 14:39 Demerol; hb 14:39 PENICILLINS; hb - Home Meds: 14:43 mycophenolate mofetil 500 mg Oral tab 1 tabs 2 times per day [Active]; tw2 amlodipine-benazepril 10-20 mg Oral cap 1 cap once daily [Active]; carvedilol 6.25 mg Oral tab 2 tabs in morning and 1 tab in evening [Active]; clotrimazole 10 mg mucous membrane troc 1 tab 5 times per day [Active]; doxycycline hyclate 100 mg Oral cap 1 cap once daily [Active]; meloxicam 15 mg Oral tab 1 tab once daily [Active]; pantoprazole 40 mg Oral TbEC 1 tab once daily [Active]; potassium chloride 10 mEq Oral cpER 1 cap 2 times per day [Active]; prednisone 10 mg Oral tab once daily [Active]; tolterodine 4 mg Oral cp24 1 cap once daily [Active]; torsemide 20 mg Oral tab 1 tab once daily [Active]; - PMHx: 14:46 breast cancer; Diabetes - NIDDM; Hypertension; ph 14:43 Diabetes - NIDDM; breast cancer; Hypertension; tw2 - PSHx: 14:46 breast surgery; Cholecystectomy; Knee surgery; ph 14:43 breast surgery; Cholecystectomy; Knee surgery; tw2 - Immunization history:: Adult Immunizations up to date. - Social history:: Smoking status: Patient/guardian denies using tobacco, Patient/guardian denies using alcohol, street drugs, The patient lives with family. - Ebola Screening: : No symptoms or risks identified at this time. - Family history:: not pertinent. Screenin:41 Abuse screen: Denies threats or abuse. Nutritional screening: No deficits noted. tw2 Tuberculosis screening: No symptoms or risk factors identified. Fall Risk None identified. Assessment: 14:40 General: Appears in no apparent distress. well groomed, Behavior is calm, cooperative, tw2 appropriate for age. Pain: Complains of pain in left foot and left leg. Neuro: Level of Consciousness is awake, alert, obeys commands, Oriented to person, place, time, situation. Cardiovascular: Heart tones S1 S2 Patient's skin is warm and dry. Respiratory: Airway is patent Respiratory effort is even, unlabored, Respiratory pattern is regular, symmetrical, Breath sounds are clear bilaterally. GI: No signs and/or symptoms were reported involving the gastrointestinal system. Abdomen is round non-distended, Bowel sounds present X 4 quads. : No signs and/or symptoms were reported regarding the genitourinary system. EENT: No signs and/or symptoms were reported regarding the EENT system. Derm: Skin is red, Bruising that is bright red, dark purple, on left foot and left leg with swelling to the left leg and foot as well.. Musculoskeletal: Circulation, motion, and sensation intact. Swelling present in left foot and left leg. 15:40 Reassessment: Patient appears in no apparent distress at this time. No changes from tw2 previously documented assessment. Patient and/or family updated on plan of care and expected duration. Pain level reassessed. Patient is alert, oriented x 3, equal unlabored respirations, skin warm/dry/pink. 16:22 Reassessment: pts daughter would like Social Service consult to set up medical POA and tw2 dnr, etc, message left for Lola Phani at this time, informed that pt could potentially be admitted for her to come see tomorrow. 17:42 Reassessment: Patient appears in no apparent distress at this time. No changes from tw2 previously documented assessment. Patient and/or family updated on plan of care and expected duration. Pain level reassessed. Patient is alert, oriented x 3, equal unlabored respirations, skin warm/dry/pink. 18:50 Reassessment: Patient appears in no apparent distress at this time. No changes from tw2 previously documented assessment. Patient and/or family updated on plan of care and expected duration. Pain level reassessed. Patient is alert, oriented x 3, equal unlabored respirations, skin warm/dry/pink. 19:31 Reassessment: Patient appears in no apparent distress at this time. Patient and/or aa1 family updated on plan of care and expected duration. Pain level reassessed. Patient is alert, oriented x 3, equal unlabored respirations, skin warm/dry/pink. Attempted to call report; nurse will call back. 19:38 Reassessment: Report given to Katherine Dasilva RN on 2nd floor. aa1 Vital Signs: 14:38 BP 131 / 65; Pulse 66; Resp 16; Temp 98.9; Pulse Ox 100% on R/A; Weight 83.91 kg; hb Height 5 ft. 4 in. (162.56 cm); Pain 8/10; 15:40 BP 138 / 70; Pulse 66; Resp 17; Pulse Ox 99% on R/A; tw2 16:40 BP 135 / 66; Pulse 66; Resp 17; Pulse Ox 99% on R/A; tw2 17:41 BP 125 / 75; Pulse 65; Resp 17; Pulse Ox 100% on R/A; tw2 18:49 BP 131 / 58; Pulse 65; Resp 17; Pulse Ox 99% on R/A; tw2 19:36 BP 126 / 66; Pulse 65; Resp 18; Temp 97.1; Pulse Ox 99% ; aa1 14:38 Body Mass Index 31.75 (83.91 kg, 162.56 cm) hb ED Course: 14:30 Patient arrived in ED. rg4 14:31 Chon Shoemaker MD is Private Physician. rg4 14:38 Triage completed. hb 14:39 Arm band placed on. hb 14:40 Eva Avila RN is Primary Nurse. tw2 14:41 Bed in low position. Call light in reach. Adult w/ patient. Pulse ox on. NIBP on. tw2 15:02 Lanny Murray MD is Attending Physician. ma2 15:40 X-ray completed. Portable x-ray completed in exam room. Patient tolerated procedure ls3 well. 15:43 Foot Left 3 View XRAY In Process Unspecified. EDMS 15:43 Ankle Left 3 View XRAY In Process Unspecified. EDMS 15:43 Tib Fib Left XRAY In Process Unspecified. EDMS 15:54 Missed attempt(s): 22 gauge in left forearm. Bleeding controlled, band aid applied, tw2 catheter tip intact. 16:14 Initial lab(s) drawn, by me, sent to lab. Inserted saline lock: 22 gauge in left jb1 antecubital area, using aseptic technique. Blood collected. 16:19 Lactate Sent. tw2 16:19 Blood Culture Adult (2) Sent. tw2 17:13 Vanessa Ospina MD is Hospitalizing Provider. ma2 18:50 No provider procedures requiring assistance completed. tw2 18:58 Report given to FRANDY Alexis. tw2 19:59 Patient admitted, IV remains in place. aa1 Administered Medications: 16:25 Drug: Clindamycin 600 mg Route: IVPB; Infused Over: 30 mins; Site: left antecubital; tw2 17:02 Follow up: Response: No adverse reaction; IV Status: Completed infusion tw2 Outcome: 17:13 Decision to Hospitalize by Provider. ma2 19:59 Admitted to Med/surg accompanied by tech, family with patient, via wheelchair, room aa1 229, with chart, Report called to Katherine Dasilva Rn 19:59 Condition: good 19:59 Discharge instructions given to patient, family, Instructed on the need for admit, Demonstrated understanding of instructions. 20:00 Patient left the ED. aa1 Signatures: Dispatcher [employer] EDMS Caleb Ramirez jb1 Vanesa Brewster RN RN aa1 Jennifer Oh RN RN ph Baxter, Heather, RN RN Eva Avila RN RN tw2 Zayra Marinelli rg4 Lanny Murray MD MD ma2 Angelita Smith ls3
[2018-09-07 17:46] LABS: Blood Morphology Comment NOT SEEN (NOT SEEN); Platelet Estimate ADEQ; Urine White Blood Cell Casts OK
[2018-09-07] MEDS ORDERED: VANCOMYCIN/NS 1 gm 1 GM/250 ML BAG IVPB SCH (20:29)
[2018-09-07] MEDS ORDERED: ACETAMINOPHEN 500 MG TAB PO PRN (20:29)
[2018-09-07] MEDS ORDERED: ONDANSETRON 4 MG/2 ML VIAL IV PRN (20:29)
[2018-09-07] MEDS ORDERED: CEFEPIME 2 GM VIAL IV SCH (21:00)
[2018-09-07] MEDS: NA CHLORIDE 0.9% 1,000 ML IV SCH (21:01)
[2018-09-07] MEDS ORDERED: VANCOMYCIN 1.5 GM in NA CHLORIDE 0.9% 500 ML IV SCH (22:30)
[2018-09-07] MEDS ORDERED: CEFEPIME 2 GM VIAL ONE (22:45)
[2018-09-07] MEDS ORDERED: VANCOMYCIN 1 GM/VIAL ONE (22:45)
[2018-09-07] MEDS ORDERED: VANCOMYCIN 500 MG/VIAL ONE (22:51)
[2018-09-07] MEDS ORDERED: NA CHLORIDE 0.9% 500 ML ONE (22:51)
[2018-09-07] MEDS ORDERED: NA CHLORIDE 0.9% 100 ML ONE (22:55)
[2018-09-07] MEDS: INSULIN -REGULAR HUMAN 50 UNIT/0.5 ML ML SQ SCH (23:10)
--- NOTE | 2018-09-08 03:33 | HP ---
Date of Admission: 09/07/2018 Code Status: Full. Primary Care Physician: Chon Shoemaker MD Chief Complaint: Erythema and redness of the left lower extremity. History Of Present Illness: The patient is a 77-year-old female with past medical history of hyperte nsion, diabetes and is now well controlled, mild cognitive disorder, who was in her usual state of he alth until approximately one week ago when the patient had a mechanical fall and injured her left low er extremity and had development of a hematoma. The patient had pain on the ankle, medial aspect of the foot, and the leg itself. The patient saw her primary care physician and was started on doxycycl ine, however, has worsened with progressive redness, pain, swelling, and hematoma; therefore, the pat iemaurisio came into the ER for further evaluation. She denies any fevers or chills. The patient's sympto ms are constant, moderate. In the ER, her vital signs were stable. She was afebrile. Her white cou nt was elevated at 16,000. X-rays were done, which ruled out any fractures. It should be noted that the patient went to [facility] after the fall a week ago and was evaluated over there and no fractu res were found at that point. The patient was started on IV clindamycin and referred for admission f or cellulitis. When seen in the ER, she was awake, alert, oriented x3, in some mild distress. Past Medical History: Hypertension, diabetes, history of breast cancer. Past Surgical History: Surgery on the breast for cancer, cholecystectomy, knee surgery. Allergies: MEPERIDINE AND PENICILLIN. Medications: List reviewed. Social History: The patient denies any tobacco use or alcohol use. No illicit drug use. The patien deya lives with her granddaughter. The patient does need some assistance with her activities of daily l iving, has been having memory problems as well. Family History: No significant premature coronary artery disease in the family. Review of Systems: Ten-point system reviewed, negative except as per HPI. Physical Examination: Vital Signs: Blood pressure 131/65, pulse 66, respirations 16, O2 100% on room air, temperature 98.9 . BMI is 31. General: Awake, alert, oriented x3. Elderly female, in some mild distress due to pain. HEENT: Normocephalic, atraumatic. PERRLA. EOMI. Moist mucous membranes. Oropharynx is clear. Co njunctivae anicteric. Neck: Supple. No JVD. Trachea midline. CV: S1, S2. Regular rate and rhythm. Peripheral pulses present bilaterally. Respiratory: Moving air well bilaterally. No wheezing or stridor. No use of accessory muscles. Gastrointestinal: Abdomen is soft, nontender, nondistended. Positive bowel sounds. No guarding or rigidity. Extremities: No clubbing or cyanosis. Left lower extremity edema. No calf tenderness. Neurologic: Cranial nerves II through XII intact grossly. No focal neurological deficit. Speech is normal. Skin: Left lower extremity erythema, swelling, warm to touch. The patient also has hematoma on the anterior left lower extremity and ecchymosis that spreads from the toes and up towards the knee. PSYCHIATRIC: Mood is okay. Affect is flat. Insight and judgment are fair. Laboratory Data: WBC 16.3, H and H 11.6 and 37.1, platelets 228, neutrophils 88%. Sodium 138, potas sium 4.1, chloride 100, CO2 30, BUN 14, creatinine 0.98, glucose 210, lactate 1.8, calcium 9.1. Imaging: Tib-fib on the left along with ankle and foot images show significant soft tissue swelling without fracture, evidence of osteomyelitis at this time. Assessment: A 77-year-old female with: 1.Cellulitis of the left lower extremity, failed outpatient treatment with doxycycline. The patient had taken 7 days worth of antibiotics. We will start on IV antibiotics. Follow up with culture res ults. 2.Hematoma, left lower extremity, due to fall. 3.Status post mechanical fall. We will obtain PT evaluation. The patient may benefit from fdc facility placement. 4.Essential hypertension. We will resume home medications as appropriate. 5.Diabetes mellitus type 2, not well controlled with hyperglycemia with long-term use of insulin. R esume home medications, insulin dose. Once medications are reconciled, we will start on sliding scal e insulin and monitor blood glucose levels. 6.Obesity, BMI 30. 7.Deep venous thrombosis prophylaxis with SCDs. No chemical anticoagulation due to recent fall, ecc hymosis. We will place SCDs. Plan: Admit the patient to Med-Surg, place as inpatient. We will transfer service to Dr. Shoemaker on ce he is back in town tomorrow. SA/MODL Voice ID: [id number]
[2018-09-08 06:19] LABS: Absolute Lymphocytes (CBC) 2.1 K/uL (0.7-4.9); Absolute Monocytes 0.9 K/uL (0.1-1.3); Absolute Neutrophil 7.9 K/uL (1.8-8.0); Basophils % 0.5 % (0-1.3); Eosinophils % 1.3 % (0-4.4); Hematocrit 31.9 % (36.0-45.0); Lymphocytes % 19.1 % (15.3-44.8); MPV 8.8 fL (7.6-11.3); Monocytes % 8.4 % (3.3-12.3); RBC Red Blood Cell Count 3.76 M/uL (3.86-4.86)
[2018-09-08 06:42] LABS: Potassium 3.4 mmol/L (3.5-5.1)
[2018-09-08] MEDS: INSULIN -REGULAR HUMAN 50 UNIT/0.5 ML ML SQ SCH ×4 (07:30→21:00)
--- NOTE | 2018-09-08 08:57 | RAD REPORT ---
EXAM DESCRIPTION: US - Extremity Venous Uni Ltd - 09/08/2018 8:23 am CLINICAL HISTORY: swelling, rule out DVT Leg swelling and edema. COMPARISON: EXTREMITY NONVASCULAR dated 07/06/2013 FINDINGS: Left lower extremity venous system was interrogated with Doppler technique. Normal flow, c ompressibility and augmentation was noted. There is no DVT present. IMPRESSION: No evidence of left lower extremity deep venous thrombosis.
[2018-09-08] MEDS: TRAMADOL HCL 50 MG TAB PO PRN (09:23)
[2018-09-08] MEDS: CEFEPIME/SWI 2gm 2 GM/20 ML SYR IV SCH ×2 (09:23→22:00)
--- NOTE | 2018-09-08 10:09 | RAD REPORT ---
EXAM DESCRIPTION: RAD - Ankle Left 3 View - 09/07/2018 3:41 pm CLINICAL HISTORY: PAIN Pain, foot infection, bruising. COMPARISON: None FINDINGS: Left tibia/ fibula, ankle and foot- multiple projections are submitted The bones are demineralized. Prominent vascular calcifications are evident. Focal soft tissue swellin g is seen pretibial soft tissues of the upper leg. Generalized swelling of the foot and ankle region also noted. Evidence of previous bunionectomy seen. Large posterior and plantar calcaneal spurs. A fracture is not apparent. Radiographic findings of os teomyelitis are not seen. IMPRESSION: Significant soft tissue swelling without fracture or evidence of osteomyelitis at this t johanny.
--- NOTE | 2018-09-08 10:10 | RAD REPORT ---
EXAM DESCRIPTION: RAD - Foot Left 3 View - 09/07/2018 3:44 pm CLINICAL HISTORY: PAIN Pain, foot infection, bruising. COMPARISON: None FINDINGS: Left tibia/ fibula, ankle and foot- multiple projections are submitted The bones are demineralized. Prominent vascular calcifications are evident. Focal soft tissue swellin g is seen pretibial soft tissues of the upper leg. Generalized swelling of the foot and ankle region also noted. Evidence of previous bunionectomy seen. Large posterior and plantar calcaneal spurs. A fracture is not apparent. Radiographic findings of os teomyelitis are not seen. IMPRESSION: Significant soft tissue swelling without fracture or evidence of osteomyelitis at this t johanny.
[2018-09-08] MEDS: CARVEDILOL 6.25 MG TAB PO SCH (21:57)
[2018-09-08] MEDS: POTASSIUM CL SA 10 MEQ TAB PO SCH (21:58)
[2018-09-08] MEDS: VANCOMYCIN 1.5 GM in NA CHLORIDE 0.9% 500 ML IV SCH (22:35)
[2018-09-08] MEDS: NA CHLORIDE 0.9% 1,000 ML IV SCH (23:09)
[2018-09-09 06:23] LABS: Absolute Lymphocytes (CBC) 1.4 K/uL (0.7-4.9); Absolute Monocytes 0.8 K/uL (0.1-1.3); Absolute Neutrophil 6.4 K/uL (1.8-8.0); Basophils % 0.8 % (0-1.3); Eosinophils % 1.5 % (0-4.4); Hematocrit 31.7 % (36.0-45.0); Lymphocytes % 15.9 % (15.3-44.8); MPV 8.6 fL (7.6-11.3); Monocytes % 9.1 % (3.3-12.3); RBC Red Blood Cell Count 3.71 M/uL (3.86-4.86)
[2018-09-09 06:32] LABS: Potassium 3.6 mmol/L (3.5-5.1)
[2018-09-09] MEDS: INSULIN -REGULAR HUMAN 50 UNIT/0.5 ML ML SQ SCH ×4 (07:30→21:05)
[2018-09-09] MEDS ORDERED: TORSEMIDE 10 MG PO SCH (09:00)
[2018-09-09] MEDS ORDERED: HOME MED 1 EA UNK (Cholecalciferol (Vitamin D3) [Vitamin D3] 1,000 UNIT) PO SCH (09:00)
[2018-09-09] MEDS: VITAMIN D 1000 UNIT TAB PO SCH (09:03)
[2018-09-09] MEDS: VITAMIN B COMPLEX 1 CAP PO SCH (09:03)
[2018-09-09] MEDS: POTASSIUM CL SA 10 MEQ TAB PO SCH ×2 (09:04→21:06)
[2018-09-09] MEDS: TORSEMIDE 20 MG TAB PO SCH (09:04)
[2018-09-09] MEDS: CALCIUM CARBONATE 500 MG TAB PO SCH (09:05)
[2018-09-09] MEDS: CARVEDILOL 12.5 MG TAB PO SCH (09:05)
[2018-09-09] MEDS: PANTOPRAZOLE 40MG TABLET PO SCH (09:08)
[2018-09-09] MEDS: CEFEPIME/SWI 2gm 2 GM/20 ML SYR IV SCH ×2 (09:08→21:05)
[2018-09-09] MEDS: NA CHLORIDE 0.9% 1,000 ML IV SCH (16:33)
[2018-09-09] MEDS: CARVEDILOL 6.25 MG TAB PO SCH (21:06)
[2018-09-09] MEDS: VANCOMYCIN 1.5 GM in NA CHLORIDE 0.9% 500 ML IV SCH (22:00)
[2018-09-10] MEDS: NA CHLORIDE 0.9% 1,000 ML IV SCH ×2 (01:49→15:09)
[2018-09-10 06:36] LABS: Absolute Lymphocytes (CBC) 1.2 K/uL (0.7-4.9); Absolute Monocytes 0.7 K/uL (0.1-1.3); Basophils % 0.8 % (0-1.3); Eosinophils % 1.7 % (0-4.4); Hematocrit 32.1 % (36.0-45.0); Lymphocytes % 14.5 % (15.3-44.8); MPV 8.3 fL (7.6-11.3); Monocytes % 8.7 % (3.3-12.3); RBC Red Blood Cell Count 3.83 M/uL (3.86-4.86)
[2018-09-10 06:38] LABS: Potassium 3.4 mmol/L (3.5-5.1)
[2018-09-10] MEDS: INSULIN -REGULAR HUMAN 50 UNIT/0.5 ML ML SQ SCH ×4 (07:30→21:48)
--- NOTE | 2018-09-10 07:33 | PN ---
Date of Progress Note: 09/08/2018 Subjective: Patient's leg has improved. This was clinically and symptomatically, although she still has marked tenderness in the area of cellulitis in the anterior portion of the tibia and fibula. Ho wever, the ultrasound reported edema, but no abscess formation. Her blood sugars have been excellent as well. Her mental status is stable, but not back to baseline of a couple weeks or months ago and discussion with the family was made in regard to placement once they can determine she can tolerate o ral antibiotics, trial will be within next 24-48 hours. She presently is on vancomycin and cefepime. HR/MODL Voice ID: [id number] Report ID: [id number]
[2018-09-10] MEDS: TRAMADOL HCL 50 MG TAB PO PRN (07:39)
[2018-09-10] MEDS: VITAMIN D 1000 UNIT TAB PO SCH (09:53)
[2018-09-10] MEDS: VITAMIN B COMPLEX 1 CAP PO SCH (09:54)
[2018-09-10] MEDS: POTASSIUM CL SA 10 MEQ TAB PO SCH ×2 (09:54→21:47)
[2018-09-10] MEDS: TORSEMIDE 20 MG TAB PO SCH (09:54)
[2018-09-10] MEDS: CALCIUM CARBONATE 500 MG TAB PO SCH (09:54)
[2018-09-10] MEDS: PANTOPRAZOLE 40MG TABLET PO SCH (09:55)
[2018-09-10] MEDS: CEFEPIME/SWI 2gm 2 GM/20 ML SYR IV SCH ×2 (09:55→21:48)
[2018-09-10] MEDS: CARVEDILOL 12.5 MG TAB PO SCH (09:55)
--- NOTE | 2018-09-10 11:29 | RAD REPORT ---
EXAM DESCRIPTION: US - Extremity Nonvascular Complete - 09/09/2018 11:39 am CLINICAL HISTORY: Left leg pain and swelling COMPARISON: None FINDINGS: 5.6 x 1.3 x 4.7 centimeter heterogeneous fluid collection is present below the left knee h aving the appearance of a hematoma IMPRESSION: 5.6 centimeter hematoma. Follow-up ultrasound in 4 weeks could be obtained to assess sta bility/resolution
[2018-09-10] MEDS: CARVEDILOL 6.25 MG TAB PO SCH (21:47)
--- NOTE | 2018-09-10 21:54 | PN ---
Date of Progress Note: 09/10/2018 Subjective: The patient states she feels considerably better today as far as her general condition i s concerned, although she did have quite a rough night as far as being comfortable. Still has some l eg pain and has noticed some bruises now on her back. The leg area shows continuous area of ecchymot ic lesion on anterior partition, however, this is beginning to liquify. The possibility of an aspira tion would be considered. The distal aspect of her foot shows a significant ecchymosis and bleeding into the foot and toes. Good movement in all joints. Blood sugars were stable as well as the rest o f her vital signs. We will continue with the IV antibiotics, possibly procedure in the morning. HR/MODL Voice ID: [id number] Report ID: [id number]
[2018-09-10] MEDS: VANCOMYCIN 1.5 GM in NA CHLORIDE 0.9% 500 ML IV SCH (21:58)
[2018-09-11] MEDS: INSULIN -REGULAR HUMAN 50 UNIT/0.5 ML ML SQ SCH ×4 (07:30→21:00)
[2018-09-11] MEDS: VITAMIN D 1000 UNIT TAB PO SCH (09:10)
[2018-09-11] MEDS: PANTOPRAZOLE 40MG TABLET PO SCH (09:10)
[2018-09-11] MEDS: VITAMIN B COMPLEX 1 CAP PO SCH (09:10)
[2018-09-11] MEDS: POTASSIUM CL SA 10 MEQ TAB PO SCH ×2 (09:11→20:29)
[2018-09-11] MEDS: TORSEMIDE 20 MG TAB PO SCH (09:11)
[2018-09-11] MEDS: CARVEDILOL 12.5 MG TAB PO SCH (09:12)
[2018-09-11] MEDS: CALCIUM CARBONATE 500 MG TAB PO SCH (09:12)
[2018-09-11] MEDS: CEFEPIME/SWI 2gm 2 GM/20 ML SYR IV SCH ×2 (09:13→20:29)
[2018-09-11] MEDS: TRAMADOL HCL 50 MG TAB PO PRN (11:57)
[2018-09-11] MEDS: CARVEDILOL 6.25 MG TAB PO SCH (20:29)
[2018-09-11] MEDS: VANCOMYCIN 1.5 GM in NA CHLORIDE 0.9% 500 ML IV SCH (22:42)
[2018-09-12] MEDS: INSULIN -REGULAR HUMAN 50 UNIT/0.5 ML ML SQ SCH ×4 (07:30→19:51)
[2018-09-12] MEDS: CARVEDILOL 12.5 MG TAB PO SCH (09:11)
[2018-09-12] MEDS: POTASSIUM CL SA 10 MEQ TAB PO SCH ×2 (09:11→21:49)
[2018-09-12] MEDS: VITAMIN D 1000 UNIT TAB PO SCH (09:11)
[2018-09-12] MEDS: CALCIUM CARBONATE 500 MG TAB PO SCH (09:11)
[2018-09-12] MEDS: PANTOPRAZOLE 40MG TABLET PO SCH (09:13)
[2018-09-12] MEDS: CEFEPIME/SWI 2gm 2 GM/20 ML SYR IV SCH ×3 (09:13→22:03)
[2018-09-12] MEDS: TORSEMIDE 20 MG TAB PO SCH (09:13)
[2018-09-12] MEDS: VITAMIN B COMPLEX 1 CAP PO SCH (09:13)
[2018-09-12] MEDS ORDERED: D50W 25 GM/50 ML SYRINGE IV PRN (10:43)
[2018-09-12] MEDS ORDERED: GLUCAGON 1 MG/VIAL IM PRN (10:43)
--- NOTE | 2018-09-12 17:37 | PN ---
Date of Progress Note: 09/11/2018 The lesion on the leg has flattened out somewhat, still areas of erythema and cellulitis and obviousl y, the ecchymosis of her foot remains the same. However, at this time, I do not think this requires an aspiration or I and D. Within next day or so, she should be able to place change roof bolter to p.o. medicatio n and transfer to a SNF. HR/MODL Voice ID: [id number] Report ID: [id number]
[2018-09-12] MEDS ORDERED: CEFEPIME/SWI 2gm 2 GM/20 ML SYR IV SCH (19:22)
[2018-09-12] MEDS: CARVEDILOL 6.25 MG TAB PO SCH (21:49)
[2018-09-12] MEDS: SMZ./TMP. 800/160 MG TABLET PO SCH (23:05)
--- NOTE | 2018-09-13 02:06 | PN ---
Date of Progress Note: 09/12/2018 The patient states she feels about the same. However, the area on her right anterior tibia-fibula ar ea has become much more soft and ballottable. I feel that the hematoma is gradually dissolving and p ossible abscess formation forming a fluid like situation where possible aspiration and/or I and D can be performed. In view of this, unless there is a dramatic change, we will consult a surgeon in the morning. Her blood sugar remains in the lower range, however, she states it is because she is not ea ting or drinking as much. She also has had some frequency. Her bowel movements have been okay. 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 If in fact, there was no procedure indicated by the surgeon, she probably could be transferred to SNF tomorrow. HR/MODL Voice ID: [id number] Report ID: [id number]
[2018-09-13 06:24] LABS: Absolute Lymphocytes (CBC) 0.9 K/uL (0.7-4.9); Absolute Monocytes 1.1 K/uL (0.1-1.3); Absolute Neutrophil 5.2 K/uL (1.8-8.0); Basophils % 0.9 % (0-1.3); Eosinophils % 2.2 % (0-4.4); Hematocrit 30.9 % (36.0-45.0); Lymphocytes % 12.1 % (15.3-44.8); MPV 8.9 fL (7.6-11.3); Monocytes % 14.9 % (3.3-12.3); RBC Red Blood Cell Count 3.64 M/uL (3.86-4.86)
[2018-09-13 06:40] LABS: Potassium 3.1 mmol/L (3.5-5.1)
[2018-09-13] MEDS: INSULIN -REGULAR HUMAN 50 UNIT/0.5 ML ML SQ SCH ×4 (07:30→21:00)
[2018-09-13] MEDS: POTASSIUM CL SA 10 MEQ TAB PO SCH ×2 (09:00→21:14)
[2018-09-13] MEDS ORDERED: POTASSIUM CL SA 10 MEQ TAB PO ONE (09:00)
[2018-09-13] MEDS: PANTOPRAZOLE 40MG TABLET PO SCH (09:09)
[2018-09-13] MEDS: SMZ./TMP. 800/160 MG TABLET PO SCH ×2 (09:09→21:15)
[2018-09-13] MEDS: VITAMIN B COMPLEX 1 CAP PO SCH (09:10)
[2018-09-13] MEDS: CALCIUM CARBONATE 500 MG TAB PO SCH (09:10)
[2018-09-13] MEDS: TORSEMIDE 20 MG TAB PO SCH (09:10)
[2018-09-13] MEDS: VITAMIN D 1000 UNIT TAB PO SCH (09:10)
[2018-09-13] MEDS: CARVEDILOL 12.5 MG TAB PO SCH (09:10)
[2018-09-13 11:37] LABS: Urine Appearance CLOUDY; Urine Bilirubin NEGATIVE (NEG); Urine Blood NEGATIVE (NEG); Urine Color YELLOW; Urine Glucose NEGATIVE (NEG); Urine Protein NEGATIVE (NEG); Urine Urobilinogen 0.2 mg/dL (0.2-1.0)
[2018-09-13 11:49] LABS: Urine RBC <5 /HPF (NONE SEEN)
[2018-09-13 11:50] LABS: Urine Bacteria 20-50 /HPF (<20); Urine Culture Reflex Order REFLEXED; Urine Yeast FEW (NONE SEEN)
[2018-09-13] MEDS: MAGNESIUM OXIDE 400 MG TAB PO SCH (13:06)
--- NOTE | 2018-09-13 13:49 | P.CNS ---
Date of Consult: 09/13/18 PC: I was asked to see this 77-year-old female in regards to a hematoma and cellulitis of her left lower leg. HPC: Patient apparently was at home, outside picking up sticks, when she fell. Did not lose consciousness. Has a large painful area on her right lower leg that was swollen and red. Came to the emergency room for possible sepsis. SOC: Allergic to meperidine, and penicillins SYS REVIEW: States she is in relatively good health. Lives with 1 of her granddaughters. Uses a walker. States she has relatively good energy otherwise. Does have a alert necklace that she wears. O/E awake alert stable HEENT: Within normal limits Chest: Chest movement equal bilateral ABD: Negative LOCO: Has an area over the left tibial tuberosity that is prominent and mildly fluctuant. Consistent with a resolving hematoma. Lower down the leg has a black marker where the area of cellulitis had been outlined. There is no more cellulitis. Does have some hematoma around her toes consistent with liquefaction of the hematoma. DATA: The normal IMPRESSION: Hematoma on the left acosta, does not appear infected at the moment. PLAN: I would continue current therapy. It does not need to be incised and drained at this time. Should the condition of this change in any way please re- consult me in otherwise it should resolve on its own. Thank you
[2018-09-13] MEDS ORDERED: POTASSIUM 25 MEQ EFFERV TAB PO ONE (16:11)
[2018-09-13 17:09] LABS: Potassium 3.6 mmol/L (3.5-5.1)
[2018-09-13] MEDS: CARVEDILOL 6.25 MG TAB PO SCH (21:15)
[2018-09-14 06:28] LABS: Magnesium 1.9 mg/dL (1.8-2.4); Potassium 3.7 mmol/L (3.5-5.1)
[2018-09-14] MEDS: INSULIN -REGULAR HUMAN 50 UNIT/0.5 ML ML SQ SCH ×2 (07:30→11:30)
[2018-09-14] MEDS: SMZ./TMP. 800/160 MG TABLET PO SCH (08:55)
[2018-09-14] MEDS: VITAMIN B COMPLEX 1 CAP PO SCH (08:55)
[2018-09-14] MEDS: MAGNESIUM OXIDE 400 MG TAB PO SCH (08:56)
[2018-09-14] MEDS: PANTOPRAZOLE 40MG TABLET PO SCH (08:56)
[2018-09-14] MEDS: TORSEMIDE 20 MG TAB PO SCH (08:56)
[2018-09-14] MEDS: CARVEDILOL 12.5 MG TAB PO SCH (08:57)
[2018-09-14] MEDS: CALCIUM CARBONATE 500 MG TAB PO SCH (08:57)
[2018-09-14] MEDS: VITAMIN D 1000 UNIT TAB PO SCH (08:57)
[2018-09-14] MEDS: POTASSIUM CL SA 10 MEQ TAB PO SCH (08:59)
[2018-09-14] MEDS ORDERED: POTASSIUM CL SA 10 MEQ TAB PO ONE (09:00)
--- NOTE | 2018-09-14 11:55 | PN ---
Date of Progress Note: 09/13/2018 The patient seems to have liquefied her lesion even more. No area of cellulitis now noted. Her ment al orientation has improved somewhat. Awaiting surgical consultation if aspiration, I and D is indic ated. She can be transferred to SNF. HR/MODL Voice ID: [id number] Report ID: [id number]
== END 2018-09-14 12:35 | DRG 603 ==
LOC: ER 14:28 → ERHOLD 17:28 → 2ND 19:41
PROVIDERS: ADMIT Family Medicine; ATTEND Family Medicine
DX: L03.116 Cellulitis of left lower limb (principal); S80.12XA Contusion of left lower leg, initial encounter; W19.XXXA Unspecified fall, initial encounter; I10 Essential (primary) hypertension; E11.65 Type 2 diabetes mellitus with hyperglycemia; E66.9 Obesity, unspecified; Z68.30 Body mass index [BMI] 30.0-30.9, adult; Z79.4 Long term (current) use of insulin; Z85.3 Personal history of malignant neoplasm of breast; Z88.0 Allergy status to penicillin
CPT/HCPCS: 36415; 76881; 80048; 80053; 80202; 81001; 82962; 83036; 83605; 83735; 84132; 85025; 87040; 87086; 87088; 93971; 94760; 96365; 97163; 99285; J0692; J7030

== ENCOUNTER 2018-12-29 16:02 | Emergency (ER) | payer OTHER ==
--- OUTSIDE RECORDS SUMMARY | 2018-12-29 16:04 | XMS REPORT ---
:1940 [facility] Address [address] [place] [id number] Care Team Providers Name Role Phone Unavailable Unavailable Unavailable Problems This patient has no known problems. Allergies, Adverse Reactions, Alerts This patient has no known allergies or adverse reactions. Medications This patient has no known medications.
--- NOTE | 2018-12-29 16:58 | RAD REPORT ---
EXAM DESCRIPTION: CT - CTHCSPWOC - 12/29/2018 4:44 pm CLINICAL HISTORY: Fall, head and neck injury, facial injury, breast cancer history COMPARISON: None. TECHNIQUE: Axial 5 mm thick images of the head were obtained. Axial 2 mm thick images of the cervic al spine were obtained with sagittal and coronal reconstruction images generated and reviewed. All CT scans are performed using dose optimization technique as appropriate and may include automated exposure control or mA/KV adjustment according to patient size. FINDINGS: No intracranial hemorrhage, mass, edema or acute intracranial finding. No acute cortical based infarc tion. Mild to moderate atrophy and chronic ischemic changes are present. Ventricles are in proportion to volume loss. Patient has dense arterial tree calcifications. No extra-axial fluid collections. Ma stoid air cells are clear. Orbits, facial bones and sinuses are separately detailed. Cervical body height and alignment are normal. C4-5, C5-6 and C6-7 disc space narrowing present with prominent anterior and posterior endplate spurs. Significant degenerative change at the dens C1 level . Dense arterial tree calcifications are present. No fracture or acute bony abnormality. Significant right foraminal stenosis present at C5-6 and bilateral at C6-7. Central canal detail is inherently li mited. Central spinal stenosis evident at C4-5 and borderline at C5-6. No paraspinal mass or hematoma. IMPRESSION: Negative CT head examination for acute or significant finding. Atrophy and chronic ische sofiya changes are present. Prominent cervical spine degenerative change present as detailed. C4-5 central canal stenosis and mu ltiple level foraminal stenosis present detailed in the body of the report. Facial bones, orbits and sinuses are separately detailed.
--- NOTE | 2018-12-29 17:02 | RAD REPORT ---
EXAM DESCRIPTION: CT - Facial Bones W/ Mpr - 12/29/2018 4:44 pm CLINICAL HISTORY: Fall, facial injury COMPARISON: None. TECHNIQUE: Axial 2 millimeter thick images of the facial bones were obtained with sagittal and coron al reconstruction imaging. All CT scans are performed using dose optimization technique as appropriate and may include automated exposure control or mA/KV adjustment according to patient size. FINDINGS: Mastoid air cells and middle ears are clear. No skullbase fracture. Dense arterial tree ca lcifications present. Condyles of the mandible are normally positioned. Mandible fracture is not identifiable. In the midli ne and left of midline of the mandible there is bone loss involving the anterior cortex and bone surr ounding the roots of the teeth. This is not a pattern typical for traumatic injury. This is most like ly related to dental disease. No abscess identified. No facial bone fracture confirmed. No air fluid level in the paranasal sinuses. No globe or orbital content abnormality seen. No air or foreign body in the soft tissues. There is prominent soft tissues overlying the midline and left anterior mandible. This is in proximity to the bone loss section of the mandible. This is also the apparent area of trauma. IMPRESSION: No acute traumatic facial bone fracture identifiable. Bone loss changes are present in the midline and left anterior mandible surrounding the roots of 2 te eth. This is a pattern more typical for dental disease rather than trauma. Soft tissue swelling anterior to the midline and left anterior mandible that could be related to the dental disease, trauma or a combination.
--- NOTE | 2018-12-29 17:07 | RAD REPORT ---
EXAM DESCRIPTION: RAD - Knee Right 3 View - 12/29/2018 4:57 pm CLINICAL HISTORY: Fall, right knee pain COMPARISON: None. FINDINGS: No fracture, dislocation or periosteal reaction.No joint effusion seen. Medial compartment narrowing present with moderate size marginal spurs. Patella femoral joint space narrowing also pres ent with marginal spurring. No foreign body or other soft tissue abnormality. Arterial tree calcifications are present. IMPRESSION: Right knee degenerative changes are present but no acute bone or joint finding seen. Clinical concerns for internal derangement or occult bony injury could be further assessed with MR im aging.
[2018-12-29] MEDS ORDERED: DERMABOND SKIN ADHESIVE TOP ONE (17:33)
--- NOTE | 2018-12-29 17:49 | ER ---
Nurse's Notes [facility] Name: Lucy Paris Age: 78 yrs Sex: Female : 1940 Arrival Date: 12/29/2018 Time: 16:08 Bed 24 Private MD: Diagnosis: Laceration of lip and oral cavity without foreign body;Fall on same level from slipping, tripping and stumbling;Pain in right knee-from fall Presentation: 12/29 16:08 Presenting complaint: EMS states: pt fell after tripping while walking in the hallway sg at [facility], pt is currently at [facility] for rehab after a fall several weeks ago, pt complaining of pain in the bottom teeth and pain in the bottom lip as well as having pain in the right knee, pt was ambulatory after fall, denies LOC. Care prior to arrival: None. Mechanism of Injury: Fall from standing position. Trauma event details: Injury occurred in the [facility], Injury occurred: in a public building. Injury occurred: December 29, 2018. 16:08 Acuity: KATHRYN 3 sg 16:08 Method Of Arrival: EMS: [facility] 16:12 Transition of care: patient was not received from another setting of care. Onset of sg symptoms was December 30, 2018. Risk Assessment: Do you want to hurt yourself or someone else? Patient reports no desire to harm self or others. Initial Sepsis Screen: Does the patient meet any 2 criteria? No. Patient's initial sepsis screen is negative. Does the patient have a suspected source of infection? No. Patient's initial sepsis screen is negative. Trauma Activation: Not Applicable Physician: ED Physician; Name: ; Notified At: ; Arrived At: Physician: General Surgeon; Name: ; Notified At: ; Arrived At: Physician: Radiology; Name: ; Notified At: ; Arrived At: Physician: Respiratory; Name: ; Notified At: ; Arrived At: Physician: Lab; Name: ; Notified At: ; Arrived At: Historical: - Allergies: 16:12 Demerol; sg 16:12 PENICILLINS; sg - Home Meds: 17:18 carvedilol 6.25 mg Oral tab 2 tabs in morning and 1 tab in evening [Active]; Lantus 100 sg unit/mL Sub-Q soln 40 unit every morning [Active]; mycophenolate mofetil 500 mg oral tab 1 Cap 2 times per day [Active]; pantoprazole 40 mg Oral TbEC 1 tab once daily [Active]; potassium chloride 10 mEq Oral TbER 1 cap 2 times per day [Active]; prednisone 10 mg Oral tab once daily [Active]; - PMHx: 16:12 breast cancer; Diabetes - NIDDM; Hypertension; sg - PSHx: 16:12 breast surgery; Cholecystectomy; Knee surgery; sg - Immunization history: Last tetanus immunization: - up to date. - Social history:: Smoking status: Patient/guardian denies using tobacco. - Ebola Screening: : Patient negative for fever greater than or equal to 101.5 degrees Fahrenheit, and additional compatible Ebola Virus Disease symptoms Patient denies exposure to infectious person Patient denies travel to an Ebola-affected area in the 21 days before illness onset No symptoms or risks identified at this time. Screenin:15 Abuse screen: Denies threats or abuse. Denies injuries from another. Tuberculosis sg screening: No symptoms or risk factors identified. Assessment: 16:12 General: Appears in no apparent distress. well groomed, well developed, well nourished, sg Behavior is calm, cooperative, appropriate for age. Pain: Complains of pain in mouth and right knee Quality of pain is described as aching, throbbing. Neuro: Level of Consciousness is awake, alert, obeys commands, Oriented to person, place, time, Dope Weigh Operator are equal bilaterally Moves all extremities. Gait is steady, Speech is normal, Facial symmetry appears normal, Pupils are PERRLA. EENT: Oral mucosa is moist. dried blood noted to the bottom lip. Throat is pink. Cardiovascular: Patient's skin is warm and dry. Chest pain is denied. Respiratory: Airway is patent Respiratory effort is even, unlabored, Respiratory pattern is regular, symmetrical, Denies cough, shortness of breath labored breathing. GI: Abdomen is flat, non-distended. : No signs and/or symptoms were reported regarding the genitourinary system. Derm: Skin is pink, warm \T\ dry. Musculoskeletal: Circulation, motion, and sensation intact. Range of motion: intact in all extremities, Swelling absent. Vital Signs: 16:15 BP 169 / 75; Pulse 55; Resp 17; Temp 97.7; Pulse Ox 100% ; Pain 6/10; sg 17:30 BP 162 / 70; Pulse 60; Resp 17; Pulse Ox 100% on R/A; Pain 3/10; sg [place] Coma Score: 16:11 Eye Response: spontaneous(4). Verbal Response: oriented(5). Motor Response: obeys sg commands(6). Total: 15. 17:30 Eye Response: spontaneous(4). Verbal Response: oriented(5). Motor Response: obeys sg commands(6). Total: 15. Trauma Score (Adult): 16:11 Eye Response: spontaneous(1); Verbal Response: oriented(1); Motor Response: obeys sg commands(2); Systolic BP: > 89 mm Hg(4); Respiratory Rate: 10 to 29 per min(4); [place] Score: 15; Trauma Score: 12 17:30 Eye Response: spontaneous(1); Verbal Response: oriented(1); Motor Response: obeys sg commands(2); Systolic BP: > 89 mm Hg(4); Respiratory Rate: 10 to 29 per min(4); [place] Score: 15; Trauma Score: 12 ED Course: 16:08 Patient arrived in ED. sg 16:11 Triage completed. sg 16:12 Patient has correct armband on for positive identification. Bed in low position. Call sg light in reach. Side rails up X2. 16:12 Arm band placed on. sg 16:16 Ramsey Hernandez, RN is Primary Nurse. sg 16:20 Aquiles Gu PA is PHCP. cp 16:20 Ludin Waldrop MD is Attending Physician. cp 16:45 CT Head C Spine In Process Unspecified. EDMS 16:45 CT Facial Bones W/O Con In Process Unspecified. EDMS 16:49 CT completed. Patient tolerated procedure well. Patient moved to radiology via jg6 wheelchair. 16:55 XRAY Knee RIGHT 3 view In Process Unspecified. EDMS 17:40 No provider procedures requiring assistance completed. Patient did not have IV access sg during this emergency room visit. Wound care: to laceration located on lower lip, and chin was cleaned with soap and water, dressed with dermabond to laceration located on chin, Patient tolerated well. Administered Medications: No medications were administered Output: 16:11 Urine: 0ml; Total: 0ml. sg Outcome: 17:48 Discharge ordered by . cp 18:10 Discharged to home ambulatory, with family. sg 18:10 Condition: good 18:10 Discharge instructions given to patient, family, Instructed on discharge instructions, follow up and referral plans. medication usage, safety practices, wound care, Demonstrated understanding of instructions, follow-up care, medications, wound care, Prescriptions given X 1. 18:13 Patient left the ED. sg Signatures: Dispatcher [employer] EDRamsey Lott RN RN Aquiles Haile PA PA cp Garcia, Jessica [id number]
--- NOTE | 2018-12-29 17:49 | EDPHYS ---
Physician Documentation [facility] Name: Lucy Paris Age: 78 yrs Sex: Female : 1940 Arrival Date: 12/29/2018 Time: 16:08 Bed 24 Private MD: ED Physician Ludin Waldrop HPI: 12/29 16:30 This 78 yrs old Female presents to ER via EMS with complaints of Mouth cp Injury, Knee Injury. 16:30 Details of fall: The patient fell from an upright position, while walking. cp 16:30 Onset: The symptoms/episode began/occurred just prior to arrival. Associated injuries: cp The patient sustained injury to the head, laceration, of the lower lip, pain, right knee, painful injury, tenderness. Historical: - Allergies: 16:12 Demerol; sg 16:12 PENICILLINS; sg - Home Meds: 17:18 carvedilol 6.25 mg Oral tab 2 tabs in morning and 1 tab in evening [Active]; Lantus 100 sg unit/mL Sub-Q soln 40 unit every morning [Active]; mycophenolate mofetil 500 mg oral tab 1 Cap 2 times per day [Active]; pantoprazole 40 mg Oral TbEC 1 tab once daily [Active]; potassium chloride 10 mEq Oral TbER 1 cap 2 times per day [Active]; prednisone 10 mg Oral tab once daily [Active]; - PMHx: 16:12 breast cancer; Diabetes - NIDDM; Hypertension; sg - PSHx: 16:12 breast surgery; Cholecystectomy; Knee surgery; sg - Immunization history: Last tetanus immunization: - up to date. - Social history:: Smoking status: Patient/guardian denies using tobacco. - Ebola Screening: : Patient negative for fever greater than or equal to 101.5 degrees Fahrenheit, and additional compatible Ebola Virus Disease symptoms Patient denies exposure to infectious person Patient denies travel to an Ebola-affected area in the 21 days before illness onset No symptoms or risks identified at this time. ROS: 16:35 Constitutional: Negative for body aches, chills, fever, poor PO intake. cp 16:35 Eyes: Negative for injury, pain, redness, and discharge. cp 16:35 ENT: Negative for drainage from ear(s), ear pain, difficulty swallowing, difficulty handling secretions. 16:35 Neck: Negative for stiffness. 16:35 Cardiovascular: Negative for chest pain, edema, palpitations. 16:35 Respiratory: Negative for cough, shortness of breath, wheezing. 16:35 Skin: Positive for laceration(s), of the face. 16:35 MS/extremity: Positive for pain, tenderness, of the right knee. cp 16:35 All other systems are negative. Exam: 16:45 Constitutional: The patient appears in no acute distress, alert, awake, non-toxic, well cp developed, well nourished. 16:45 Head/Face: Normocephalic, atraumatic. cp 16:45 Eyes: Periorbital structures: appear normal, Conjunctiva: normal, no exudate, no injection, Lids and lashes: appear normal, bilaterally. 16:45 ENT: External ear(s): are unremarkable, Ear canal(s): are normal, clear, TM's: dullness, bilaterally, Nose: is normal, Mouth: Lips: lacerated, lower lip, superficial, Dental exam: fractured teeth are noted, not appreciated, pain, that is mild, specifically in the lower front teeth. 16:45 Neck: C-spine: vertebral tenderness, is not appreciated, crepitus, is not appreciated, ROM/movement: nuchal rigidity, is not appreciated. 16:45 Chest/axilla: Inspection: normal, Palpation: is normal, no crepitus, no tenderness. 16:45 Cardiovascular: Rate: normal, Rhythm: regular. 16:45 Respiratory: the patient does not display signs of respiratory distress, Respirations: normal, no use of accessory muscles, no retractions, no splinting, no tachypnea, labored breathing, is not present, Breath sounds: are clear throughout, no decreased breath sounds, no stridor, no wheezing. 16:45 Abdomen/GI: Inspection: abdomen appears normal, Palpation: abdomen is soft and non-tender, in all quadrants. 16:45 Back: vertebral tenderness, is not appreciated. 16:45 Musculoskeletal/extremity: Joints: All joints are normal except the right knee displays painful range of motion, swelling, tenderness. 16:45 Neuro: Orientation: to person, place \T\ time. Mentation: is normal, Motor: moves all fours, strength is normal, Sensation: is normal. Vital Signs: 16:15 BP 169 / 75; Pulse 55; Resp 17; Temp 97.7; Pulse Ox 100% ; Pain 6/10; sg 17:30 BP 162 / 70; Pulse 60; Resp 17; Pulse Ox 100% on R/A; Pain 3/10; sg [place] Coma Score: 16:11 Eye Response: spontaneous(4). Verbal Response: oriented(5). Motor Response: obeys sg commands(6). Total: 15. 17:30 Eye Response: spontaneous(4). Verbal Response: oriented(5). Motor Response: obeys sg commands(6). Total: 15. Trauma Score (Adult): 16:11 Eye Response: spontaneous(1); Verbal Response: oriented(1); Motor Response: obeys sg commands(2); Systolic BP: > 89 mm Hg(4); Respiratory Rate: 10 to 29 per min(4); [place] Score: 15; Trauma Score: 12 17:30 Eye Response: spontaneous(1); Verbal Response: oriented(1); Motor Response: obeys sg commands(2); Systolic BP: > 89 mm Hg(4); Respiratory Rate: 10 to 29 per min(4); [place] Score: 15; Trauma Score: 12 MDM: 16:26 Patient medically screened. cp 17:47 Data reviewed: vital signs, nurses notes, radiologic studies, CT scan, plain films, and cp as a result, I will discharge patient. 17:47 Differential diagnosis: closed head injury, contusion, fracture, laceration, multiple cp trauma. Counseling: I had a detailed discussion with the patient and/or guardian regarding: the historical points, exam findings, and any diagnostic results supporting the discharge/admit diagnosis, radiology results, to return to the emergency department if symptoms worsen or persist or if there are any questions or concerns that arise at home. Response to treatment: the patient's symptoms have markedly improved after treatment, and as a result, I will discharge patient. 12/29 16:27 Order name: CT Head C Spine; Complete Time: 17:20 cp 12/29 16:27 Order name: CT Facial Bones W/O Con; Complete Time: 17:20 cp 12/29 16:27 Order name: XRAY Knee RIGHT 3 view; Complete Time: 17:20 cp 12/29 17:23 Order name: Wound Care; Complete Time: 17:43 cp Administered Medications: No medications were administered Disposition: 12/30 08:55 Co-signature as Attending Physician, Ludin Waldrop MD I agree with the assessment and kdr plan of care. Disposition: 12/29/18 17:48 Discharged to Home. Impression: Laceration of lip and oral cavity without foreign body, Fall on same level from slipping, tripping and stumbling, Pain in right knee - from fall. - Condition is Stable. - Discharge Instructions: Facial Laceration, Knee Pain. - Prescriptions for Keflex 500 mg Oral Capsule - take 1 capsule by ORAL route every 8 hours for 10 days; 30 capsule. - Medication Reconciliation Form, Thank You Letter, Antibiotic Education, Prescription Opioid Use form. - Follow up: Private Physician; When: 2 - 3 days; Reason: Worsening of condition. - Problem is new. - Symptoms have improved. Signatures: Dispatcher [employer] EDMS Ramsey Hernandez RN RN sg Rittger, Kevin, MD MD kdr Aquiles Gu PA PA cp Corrections: (The following items were deleted from the chart) 12/29 18:13 17:48 12/29/2018 17:48 Discharged to Home. Impression: Laceration of lip and oral sg cavity without foreign body; Fall on same level from slipping, tripping and stumbling; Pain in right knee - from fall. Condition is Stable. Forms are Medication Reconciliation Form, Thank You Letter, Antibiotic Education, Prescription Opioid Use. Follow up: Private Physician; When: 2 - 3 days; Reason: Worsening of condition. Problem is new. Symptoms have improved. cp 12/30 18:06 12/29 16:35 MS/extremity: Positive for pain, tenderness, of the left knee, Negative for cp deformity, cp 12/30 18:06 12/29 16:35 All other systems are negative, cp cp
[2018-12-29 18:40] VITALS: BP 169/75; TEMP 97.7; O2SAT 100
== END 2018-12-29 18:13 | disposition home or self-care (01) ==
LOC: ER 16:02
DX: S01.511A Laceration without foreign body of lip, initial encounter (principal); S01.512A Laceration without foreign body of oral cavity, initial encounter; W01.0XXA Fall on same level from slipping, tripping and stumbling without subsequent striking against object, initial encounter; Y93.01 Activity, walking, marching and hiking; Y92.9 Unspecified place or not applicable; I10 Essential (primary) hypertension; E11.9 Type 2 diabetes mellitus without complications; Z85.3 Personal history of malignant neoplasm of breast; Z88.0 Allergy status to penicillin; Z88.5 Allergy status to narcotic agent; Z79.4 Long term (current) use of insulin
CPT/HCPCS: 70450; 70486; 72125; 76377; 99284

== ENCOUNTER 2019-11-20 22:47 | Inpatient (IN) | payer OTHER ==
--- OUTSIDE RECORDS SUMMARY | 2019-11-20 22:49 | XMS REPORT | Continuity of Care Document ---
:1940 Author Organization [facility] t Address [address] [place] [address] Dr. Cardoso[address] [place] [id number] Care Team Providers Name Role Phone Unavailable Unavailable Unavailable Problems This patient has no known problems. Allergies, Adverse Reactions, Alerts This patient has no known allergies or adverse reactions. Medications This patient has no known medications. Procedures This patient has no known procedures. Results This patient has no known results.
[2019-11-21 00:13] LABS: Basophils % 0.3 % (0-1.3); Hematocrit 34.5 % (36.0-45.0); Lymphocytes % 5.4 % (15.3-44.8); MPV 7.9 fL (7.6-11.3); RBC Red Blood Cell Count 4.19 M/uL (3.86-4.86)
[2019-11-21 00:27] LABS: ALT/SGPT 22 U/L (12-78); AST/SGOT 19 U/L (15-37); Albumin 3.2 g/dL (3.4-5.0); Alkaline Phosphatase 91 U/L (45-117); BUN Blood Urea Nitrogen 14 mg/dL (7-18); Bicarbonate 31 mmol/L (21-32); Bilirubin Direct < 0.1 mg/dL (0-0.2); Bilirubin Total 0.3 mg/dL (0.2-1.0); Glucose Level 162 mg/dL (74-106); Potassium 3.5 mmol/L (3.5-5.1); Sodium Level 139 mmol/L (136-145)
--- NOTE | 2019-11-21 00:27 | ER ---
Nurse's Notes [facility] Name: Lucy Paris Age: 79 yrs Sex: Female : 1940 Arrival Date: 11/20/2019 Time: 22:59 Bed 17 Private MD: Diagnosis: Altered mental status, unspecified;Fever, unspecified;Elevated white blood cell count;Type 2 diabetes mellitus;Hypomagnesemia;Abdominal tenderness;Diverticulosis of large intestine without perforation or abscess without bleeding Presentation: 11/19 22:55 Initial Sepsis Screen: Does the patient meet any 2 criteria? Altered Mental Status. HR ks7 > 90 bpm. Yes Does the patient have a suspected source of infection? No. Patient's initial sepsis screen is negative. If YES to both, name of provider notified: Aquiles Rose MD. Risk Assessment: Do you want to hurt yourself or someone else? Patient reports no desire to harm self or others. Onset of symptoms was November 20, 2019. 22:55 Acuity: KATHRYN 3 ks7 23:04 Chief complaint: EMS states: BIBA: pt comes from [facility]. staff called [facility] for "fever and vomiting". EMS reports pt has altered LOC, sometimes aaox3 sometimes aaox1. in ED pt denies any pain, states she feels fine. pt aaox2, follows commands, answers questions, confused. Coronavirus screen: Client denies travel out of the [place] in the last 14 days. fever, nausea, The client denies any previous COVID testing. Ebola Screen: Patient negative for fever greater than or equal to 101.5 degrees Fahrenheit, and additional compatible Ebola Virus Disease symptoms Patient denies exposure to infectious person. Patient denies travel to an Ebola-affected area in the 21 days before illness onset. 23:04 Method Of Arrival: EMS: [facility] ks7 Triage Assessment: 23:12 General: Appears ill, Behavior is cooperative, confused. Pain: Denies pain. Neuro: ks7 Level of Consciousness is awake, obeys commands, Oriented to person, place, Punch Press Feeder are equal bilaterally. Historical: - Allergies: 23:12 Demerol; ks7 23:12 PENICILLINS; ks7 - Home Meds: 23:12 Lantus 100 unit/mL Sub-Q soln 40 unit every morning [Active]; carvedilol 6.25 mg Oral ks7 tab 2 tabs in morning and 1 tab in evening [Active]; pantoprazole 40 mg Oral TbEC 1 tab once daily [Active]; mycophenolate mofetil 500 mg Oral tab 1 cap 2 times per day [Active]; torsemide 20 mg Oral tab 1 tab once daily [Active]; - PMHx: 23:12 Hypertension; Diabetes - NIDDM; breast cancer; ks7 - PSHx: 23:12 None; ks7 - Immunization history:: Adult Immunizations up to date. - Social history:: Smoking status: Patient denies any tobacco usage or history of. Screenin:15 Abuse screen: Denies threats or abuse. Denies injuries from another. Nutritional ks7 screening: No deficits noted. Tuberculosis screening: No symptoms or risk factors identified. Fall Risk No fall in past 12 months (0 pts). Secondary diagnosis (15 points) impaired mobility, IV access (20 points). Ambulatory Aid- None/Bed Rest/Nurse Assist (0 pts). Gait- Weak (10 pts.). Mental Status- Overestimates/Forgets Limitations (15 pts.). Total More Fall Scale indicates High Risk Score (45 or more points). Assessment: 23:15 General: Appears BIBA: pt confused, oriented x 2, follows commands. her facility called ks for "fever and vomiting". 23:57 Reassessment: Kyleigh Peterson daughter: [phone] Varun Kirby: [phone] son. call ks7 first he is in the lobby. Reassessment: daughter called in. gave her update on mom. pt has hx of breast CA, unable to use R arm for BP or IV. 11/20 02:33 Reassessment: No changes from previously documented assessment. Patient and/or family fu updated on plan of care and expected duration. Pain level reassessed. patient is confused, wanting to get out of bed to use restroom to void, explained that perry catheter is present and urine is draining freely. 03:01 Reassessment: Talked to patient's daughter over the phone, notified that patient is for fu admission. 04:16 Reassessment: No changes from previously documented assessment. Patient and/or family fu updated on plan of care and expected duration. Pain level reassessed. patient resting in bed, not in respiratory distress. connected to monitor. Vital Signs: 11/19 22:55 BP 178 / 88; Pulse 92; Resp 18; Temp 100.5(O); Pulse Ox 98% on R/A; Weight 81.65 kg; ks7 Height 5 ft. 4 in. (162.56 cm); Pain 0/10; 23:14 BP 180 / 75; Pulse 93; Resp 18; Temp 100.5(O); Pulse Ox 98% on R/A; Pain 0/10; ks7 23:15 BP 152 / 72; Pulse 93; Resp 18; Temp 100.5(O); Pulse Ox 99% on R/A; Pain 0/10; ks7 23:30 BP 161 / 48; Pulse 89; Resp 18; Pulse Ox 99% on R/A; Pain 0/10; ks7 11/20 01:42 BP 163 / 95; Pulse 90; Resp 20; Pulse Ox 98% on R/A; fu 02:15 BP 160 / 66; Pulse 72; Resp 24; Pulse Ox 97% on R/A; fu 02:15 BP 162 / 65; Pulse 70; Resp 20; Temp 98.3; Pulse Ox 98% on R/A; fu 03:45 BP 157 / 62; Pulse 62; Resp 19; Pulse Ox 98% on R/A; fu 11/19 22:55 Body Mass Index 30.90 (81.65 kg, 162.56 cm) ks7 ED Course: 11/19 22:59 Patient arrived in ED. fj1 23:04 Taina Worley, FRANDY is Primary Nurse. ks7 23:06 Aquiles Rose MD is Attending Physician. [facility] 23:10 Triage completed. ks7 23:12 Arm band placed on right wrist. ks7 23:15 Patient has correct armband on for positive identification. Placed in gown. Bed in low ks7 position. Call light in reach. Side rails up X2. 23:15 No provider procedures requiring assistance completed. Inserted saline lock: 20 gauge ks7 in left forearm, using aseptic technique. 23:17 Resting quietly. ks7 23:[address] via stretcher. ks7 11/20 00:25 Clay Hdz is Hospitalizing Provider. [facility] 00:29 CT Stone Protocol Sent. ks7 00:29 CT Head Brain wo Cont Sent. 00:29 Procalcitonin Sent. 00: Lactate Sent. 00:29 Blood Culture Adult (2) Sent. 00: COVID-19 Sent. 00:29 Influenza Screen (a \\T\\ B) Sent. 00:30 Basic Metabolic Panel Sent. 00:30 CBC with Diff Sent. 00:30 Magnesium Sent. :30 NT PRO-BNP Sent. :30 Troponin (emerg Dept Use Only) Sent. : Report given to Paul WISE. 00:31 LFT's Sent. :31 XRAY Chest (1 view) Sent. 01:15 Perry cath inserted, using sterile technique, 16 Fr., by il, balloon inflated, to fu gravity drainage, urine specimen collected. 01:38 Urine Culture Sent. fu 01:40 Urine Dipstick--Ancillary (enter results) Sent. fu 03:57 Patient admitted, IV remains in place. fu Administered Medications: 01:17 Drug: Pepcid 20 mg Route: IVP; Site: left forearm; fu 01:37 Follow up: Response: No adverse reaction fu 01:17 Drug: Magnesium Sulfate 1 grams Route: IVPB; Infused Over: 1 hrs; Site: left forearm; fu 01:41 Follow up: Response: No adverse reaction fu 01:18 Drug: NS 0.9% 1000 ml Route: IV; Rate: 1 bolus; Site: left forearm; fu 02:43 Follow up: Response: No adverse reaction fu 01:18 Drug: Tylenol 650 mg Route: PO; fu 01:37 Drug: Rocephin 1 grams Route: IV; Rate: per protocol; Site: left forearm; fu 02:27 Follow up: Response: No adverse reaction fu 02:25 Drug: Flagyl 500 mg Volume: 100 ml; Route: IVPB; Rate: 200 ml/hr; Infused Over: 30 fu mins; Site: left forearm; 03:35 Follow up: Response: No adverse reaction fu Outcome: 00:26 Decision to Hospitalize by Provider. gaby 03:56 Admitted to Med/surg accompanied by nurse, via stretcher, room 202. fu 03:56 Condition: stable 03:56 Instructed on the need for admit. 04:17 Patient left the ED. fu Signatures: Aquiles Rose MD MD cha Umadhay, Felix, RN Phuc Aguilera fj1 Taina Worley RN RN ks7 Corrections: (The following items were deleted from the chart) 02:43 02:15 BP 162 / 65; Pulse 70bpm; Resp 20bpm; Pulse Ox 98% RA; fu fu
--- NOTE | 2019-11-21 00:27 | EDPHYS ---
Physician Documentation [facility] Name: Lucy Paris Age: 79 yrs Sex: Female : 1940 Arrival Date: 11/20/2019 Time: 22:59 Bed 17 Private MD: ED Physician Aquiles Rose HPI: 11/19 23:28 This 79 yrs old Female presents to ER via EMS with complaints of Altered gaby Mental Status. 23:28 The patient presents with confusion, trouble concentrating. Onset: The symptoms/episode gaby began/occurred 2 day(s) ago. Possible causes: low blood sugar, sepsis, the patient has had a history of a fever, the patient lives in a senior care. Associated signs and symptoms: Pertinent positives: confusion, lightheadedness. Current symptoms: In the emergency department the patient's symptoms have improved, mildly. Patient's baseline: Neuro: alert and fully oriented. The patient has experienced similar episodes in the past, several times. Historical: - Allergies: 23:12 Demerol; ks7 23:12 PENICILLINS; ks7 - Home Meds: 23:12 Lantus 100 unit/mL Sub-Q soln 40 unit every morning [Active]; carvedilol 6.25 mg Oral ks7 tab 2 tabs in morning and 1 tab in evening [Active]; pantoprazole 40 mg Oral TbEC 1 tab once daily [Active]; mycophenolate mofetil 500 mg Oral tab 1 cap 2 times per day [Active]; torsemide 20 mg Oral tab 1 tab once daily [Active]; - PMHx: 23:12 Hypertension; Diabetes - NIDDM; breast cancer; ks7 - PSHx: 23:12 None; ks7 - Immunization history:: Adult Immunizations up to date. - Social history:: Smoking status: Patient denies any tobacco usage or history of. ROS: 23:30 Eyes: Negative for injury, pain, redness, and discharge, ENT: Negative for injury, gaby pain, and discharge, Neck: Negative for injury, pain, and swelling, Cardiovascular: Negative for chest pain, palpitations, and edema, Respiratory: Negative for shortness of breath, cough, wheezing, and pleuritic chest pain, Back: Negative for injury and pain, : Negative for injury, bleeding, discharge, and swelling, MS/Extremity: Negative for injury and deformity, Skin: Negative for injury, rash, and discoloration, Psych: Negative for depression, anxiety, suicide ideation, homicidal ideation, and hallucinations, Allergy/Immunology: Negative for hives, rash, and allergies, Endocrine: Negative for neck swelling, polydipsia, polyuria, polyphagia, and marked weight changes, Hematologic/Lymphatic: Negative for swollen nodes, abnormal bleeding, and unusual bruising. 23:30 Abdomen/GI: Positive for abdominal pain. 23:30 Back: Positive for flank pain, bilaterally. Exam: 23:30 Head/Face: Normocephalic, atraumatic. Eyes: Pupils equal round and reactive to light, gaby extra-ocular motions intact. Lids and lashes normal. Conjunctiva and sclera are non-icteric and not injected. Cornea within normal limits. Periorbital areas with no swelling, redness, or edema. ENT: Nares patent. No nasal discharge, no septal abnormalities noted. Tympanic membranes are normal and external auditory canals are clear. Oropharynx with no redness, swelling, or masses, exudates, or evidence of obstruction, uvula midline. Mucous membranes moist. Neck: Trachea midline, no thyromegaly or masses palpated, and no cervical lymphadenopathy. Supple, full range of motion without nuchal rigidity, or vertebral point tenderness. No Meningismus. Chest/axilla: Normal chest wall appearance and motion. Nontender with no deformity. No lesions are appreciated. Cardiovascular: Regular rate and rhythm with a normal S1 and S2. No gallops, murmurs, or rubs. Normal PMI, no JVD. No pulse deficits. Respiratory: Lungs have equal breath sounds bilaterally, clear to auscultation and percussion. No rales, rhonchi or wheezes noted. No increased work of breathing, no retractions or nasal flaring. Abdomen/GI: Soft, non-tender, with normal bowel sounds. No distension or tympany. No guarding or rebound. No evidence of tenderness throughout. Back: No spinal tenderness. No costovertebral tenderness. Full range of motion. Skin: Warm, dry with normal turgor. Normal color with no rashes, no lesions, and no evidence of cellulitis. MS/ Extremity: Pulses equal, no cyanosis. Neurovascular intact. Full, normal range of motion. Neuro: Awake and alert, GCS 15, oriented to person, place, time, and situation. Cranial nerves II-XII grossly intact. Motor strength 5/5 in all extremities. Sensory grossly intact. Cerebellar exam normal. Normal gait. Psych: Awake, alert, with orientation to person, place and time. Behavior, mood, and affect are within normal limits. 23:30 Constitutional: The patient appears febrile. 23:30 Abdomen/GI: Inspection: distension, Bowel sounds: normal, Palpation: abdomen is soft and non-tender, Rectal exam: is unremarkable, Liver: no appreciated palpable abnormalities, Hernia: not appreciated. 23:35 ECG was reviewed by the Attending Physician. gaby 11/20 01:09 Neck: External neck: is normal, no acute changes, ROM/movement: is normal, no acute gayb changes, Meningeal signs: are not present, Kernig's sign is negative, Brudzinski's sign is negative. Vital Signs: 11/19 22:55 BP 178 / 88; Pulse 92; Resp 18; Temp 100.5(O); Pulse Ox 98% on R/A; Weight 81.65 kg; ks7 Height 5 ft. 4 in. (162.56 cm); Pain 0/10; 23:14 BP 180 / 75; Pulse 93; Resp 18; Temp 100.5(O); Pulse Ox 98% on R/A; Pain 0/10; ks7 23:15 BP 152 / 72; Pulse 93; Resp 18; Temp 100.5(O); Pulse Ox 99% on R/A; Pain 0/10; ks7 23:30 BP 161 / 48; Pulse 89; Resp 18; Pulse Ox 99% on R/A; Pain 0/10; ks7 11/20 01:42 BP 163 / 95; Pulse 90; Resp 20; Pulse Ox 98% on R/A; fu 02:15 BP 160 / 66; Pulse 72; Resp 24; Pulse Ox 97% on R/A; fu 02:15 BP 162 / 65; Pulse 70; Resp 20; Temp 98.3; Pulse Ox 98% on R/A; fu 03:45 BP 157 / 62; Pulse 62; Resp 19; Pulse Ox 98% on R/A; fu 11/19 22:55 Body Mass Index 30.90 (81.65 kg, 162.56 cm) ks MDM: 11/19 23:06 Patient medically screened. [facility] 23:32 Data reviewed: vital signs, nurses notes, lab test result(s), EKG, radiologic studies, [facility] CT scan, plain films. 23:32 Differential Diagnosis altered mental status, sepsis, flu. Differential Diagnosis: CVA, gaby electrolyte abnormality, hypoglycemia, pneumonia, sepsis, UTI, volume depletion. Differential diagnosis: URI, bronchitis, pneumonia UTI, gastroenteritis, bowel obstruction, cholecystitis, Cholelithiasis, diverticulitis, gastritis, non-specific abd pain, pancreatitis, Pyelonephritis, Ureterolithiasis, urinary tract infection. Data interpreted: quality assurance monitor chassis: rate is 93 beats/min, rhythm is regular, Pulse oximetry: on room air is 98 %. Test interpretation: by ED physician or midlevel provider: ECG, plain radiologic studies. Counseling: I had a detailed discussion with the patient and/or guardian regarding: the historical points, exam findings, and any diagnostic results supporting the discharge/admit diagnosis, lab results, radiology results, the need for further work-up and treatment in the hospital. 11/19 23:28 Order name: Basic Metabolic Panel [facility] 11/19 23:28 Order name: CBC with Diff [facility] 11/19 23:28 Order name: LFT's [facility] 11/19 23:28 Order name: Magnesium [facility] 11/19 23:28 Order name: NT PRO-BNP [facility] 11/19 23:28 Order name: Troponin (emerg Dept Use Only) [facility] 11/19 23:28 Order name: Urine Culture [facility] 11/19 23:28 Order name: Influenza Screen (a \T\ B) [facility] 11/19 23:28 Order name: COVID-19 [facility] 11/19 23:28 Order name: Blood Culture Adult (2) [facility] 11/19 23:28 Order name: Lactate [facility] 11/19 23:28 Order name: Procalcitonin [facility] 11/20 00:15 Order name: CBC with Automated Diff; Complete Time: 02:08 EDMS 11/20 00:25 Order name: Lactate; Complete Time: 00:40 EDMS 11/19 23:28 Order name: XRAY Chest (1 view) [facility] 11/19 23:28 Order name: CT Head Brain wo Cont [facility] 11/19 23:28 Order name: CT Stone Protocol [facility] 11/20 00:28 Order name: Basic Metabolic Panel; Complete Time: 00:40 EDMS 11/20 00:28 Order name: Liver (Hepatic) Function; Complete Time: 00:40 EDMS 08 00:28 Order name: Troponin (Emerg Dept Use Only); Complete Time: 00:40 EDMS 08 00:28 Order name: NT PRO-BNP; Complete Time: 00:40 EDMS 11/20 00:28 Order name: Magnesium; Complete Time: 00:40 EDMS 11/20 01:12 Order name: Procalcitonin; Complete Time: 02:08 EDMS 11/20 01:17 Order name: Manual Differential; Complete Time: 02:08 EDMS 11/20 01:22 Order name: Influenza Screen (A ; Complete Time: 02:08 [facility] 11/20 01:33 Order name: Urine Dipstick--Ancillary (enter results) ar5 11/20 03:10 Order name: Urine Dipstick-Ancillary ED[facility] 11/19 23:28 Order name: EKG; Complete Time: 23:29 [facility] 11/19 23:28 Order name: Cardiac monitoring; Complete Time: 00:30 [facility] 11/19 23:28 Order name: EKG - Nurse/Tech; Complete Time: 00:30 [facility] 11/19 23:28 Order name: IV Saline Lock; Complete Time: 00:30 [facility] 11/19 23:28 Order name: Labs collected and sent; Complete Time: 00:30 [facility] 11/19 23:28 Order name: O2 Per Protocol; Complete Time: 00:30 [facility] 11/19 23:28 Order name: O2 Sat Monitoring; Complete Time: 00:30 [facility] 11/19 23:28 Order name: Urine Dipstick-Ancillary (obtain specimen); Complete Time: 01:38 [facility] 11/19 23:34 Order name: Ross; Complete Time: 01:18 [facility] EC:35 Rate is 92 beats/min. Rhythm is regular. QRS [place] is Normal. NC interval is normal. QRS gaby interval is normal. QT interval is normal. No Q waves. T waves are Normal. No ST changes noted. Clinical impression: NSR w/ Non-specific ST/T Changes and No evidence of ischemia. Interpreted by me. Reviewed by me. Administered Medications: 11/20 01:17 Drug: Pepcid 20 mg Route: IVP; Site: left forearm; fu 01:37 Follow up: Response: No adverse reaction fu 01:17 Drug: Magnesium Sulfate 1 grams Route: IVPB; Infused Over: 1 hrs; Site: left forearm; fu 01:41 Follow up: Response: No adverse reaction fu 01:18 Drug: NS 0.9% 1000 ml Route: IV; Rate: 1 bolus; Site: left forearm; fu 02:43 Follow up: Response: No adverse reaction fu 01:18 Drug: Tylenol 650 mg Route: PO; fu 01:37 Drug: Rocephin 1 grams Route: IV; Rate: per protocol; Site: left forearm; fu 02:27 Follow up: Response: No adverse reaction fu 02:25 Drug: Flagyl 500 mg Volume: 100 ml; Route: IVPB; Rate: 200 ml/hr; Infused Over: 30 fu mins; Site: left forearm; 03:35 Follow up: Response: No adverse reaction fu Disposition: 11/21/19 00:26 Hospitalization ordered by Clay Hdz for Inpatient Admission. Preliminary diagnosis are Altered mental status, unspecified, Fever, unspecified, Elevated white blood cell count, Type 2 diabetes mellitus, Hypomagnesemia, Abdominal tenderness, Diverticulosis of large intestine without perforation or abscess without bleeding. - Bed requested for Telemetry/MedSurg (Inpatient). - Status is Inpatient Admission. fu - Condition is Stable. - Problem is new. - Symptoms have improved. Signatures: Dispatcher [employer] EDMS Aquiles Rose MD MD cha Garcia, Cindy, RN FRANDY Paul Carrillo, Taina Hartmann RN, RN RN ks7 Corrections: (The following items were deleted from the chart) 00:41 00:26 Hospitalization Ordered by Clay Hdz for Inpatient Admission. Preliminary gaby diagnosis is Altered mental status, unspecified; Fever, unspecified; Elevated white blood cell count; Type 2 diabetes mellitus. Bed requested for Telemetry/MedSurg (Inpatient). Status is Inpatient Admission. Condition is Stable. Problem is new. Symptoms have improved. gaby 02:09 00:41 11/21/2019 00:26 Hospitalization Ordered by Clay Hdz for Inpatient gaby Admission. Preliminary diagnosis is Altered mental status, unspecified; Fever, unspecified; Elevated white blood cell count; Type 2 diabetes mellitus; Hypomagnesemia. Bed requested for Telemetry/MedSurg (Inpatient). Status is Inpatient Admission. Condition is Stable. Problem is new. Symptoms have improved. gaby 02:10 02:09 11/21/2019 00:26 Hospitalization Ordered by Clay Hdz for Inpatient gaby Admission. Preliminary diagnosis is Altered mental status, unspecified; Fever, unspecified; Elevated white blood cell count; Type 2 diabetes mellitus; Hypomagnesemia; Abdominal tenderness. Bed requested for Telemetry/MedSurg (Inpatient). Status is Inpatient Admission. Condition is Stable. Problem is new. Symptoms have improved. gaby 03:42 02:10 11/21/2019 00:26 Hospitalization Ordered by Clay Hdz for Inpatient cg Admission. Preliminary diagnosis is Altered mental status, unspecified; Fever, unspecified; Elevated white blood cell count; Type 2 diabetes mellitus; Hypomagnesemia; Abdominal tenderness; Diverticulosis of large intestine without perforation or abscess without bleeding. Bed requested for Telemetry/MedSurg (Inpatient). Status is Inpatient Admission. Condition is Stable. Problem is new. Symptoms have improved. gaby 04:17 03:42 11/21/2019 00:26 Hospitalization Ordered by Clay Hdz for Inpatient fu Admission. Preliminary diagnosis is Altered mental status, unspecified; Fever, unspecified; Elevated white blood cell count; Type 2 diabetes mellitus; Hypomagnesemia; Abdominal tenderness; Diverticulosis of large intestine without perforation or abscess without bleeding. Bed requested for Telemetry/MedSurg (Inpatient). Status is Inpatient Admission. Condition is Stable. Problem is new. Symptoms have improved. cg
[2019-11-21 00:28] LABS: Magnesium 1.7 mg/dL (1.8-2.4); NT PRO-BNP 490 pg/mL (<450); Troponin (Emerg Dept Use Only) < 0.02 ng/mL (0.0-0.045)
[2019-11-21] MEDS ORDERED: ACETAMINOPHEN 325 MG TABLET ONE (00:44)
[2019-11-21] MEDS ORDERED: CEFTRIAXONE/SWI 1gm 1 GM/10 ML SYR ONE (00:45)
[2019-11-21] MEDS ORDERED: FAMOTIDINE 20 MG/2 ML VIAL IV ONE (00:45)
[2019-11-21] MEDS ORDERED: NA CHLORIDE 0.9% 1,000 ML ONE (00:45)
[2019-11-21 01:16] LABS: Blood Morphology Comment NOT SEEN (NOT SEEN); Platelet Estimate ADEQ
[2019-11-21] MEDS ORDERED: METRONIDAZOLE 500mg IVPB 500 MG/100 ML BAG IV ONE (02:35)
--- NOTE | 2019-11-21 02:40 | P.HP ---
Certification for Inpatient Patient admitted to: Inpatient With expected LOS: >2 Midnights Practitioner: I am a practitioner with admitting privileges, knowledge of patient current condition, hospital course, and medical plan of care. Services: Services provided to patient in accordance with Admission requirements found in Title 42 Section 412.3 of the Code of Federal Regulations Patient History Date of Service: 11/21/19 Reason for admission: Altered mental status History of Present Illness: 79-year-old woman with a history of hypertension and diabetes was transferred from the senior living to the emergency department due to altered mental status. Her white cell count in the ED is elevated to 18,000. UA is pending. Temperature of 100.5 was recorded in the ED. Patient noted to be hypertensive. She meets criteria for sepsis with fever and leukocytosis. Patient is admitted for further management. Allergies meperidine [From Demerol] Allergy (Verified 01/05/17 21:27) Nausea/Vomiting Penicillins Allergy (Verified 01/05/17 21:27) Rash Home Medications: Calcium Carbonate [Calcium] 500 mg PO DAILY 09/07/18 Cholecalciferol (Vitamin D3) [Vitamin D3] 1,000 unit PO DAILY 09/07/18 Doxycycline Hyclate [Vibramycin] 100 mg PO BID 09/07/18 Insulin Glargine,Hum.rec.anlog [Toujeo Solostar] 50 units SQ BEDTIME 09/07/18 Mycophenolate Mofetil [Cellcept] 500 mg PO BID 09/07/18 Pantoprazole [Protonix Tab] 40 mg PO DAILY 09/07/18 Potassium Chloride [Klor-Con 10] 10 meq PO BID 09/07/18 Torsemide 10 mg PO DAILY 09/07/18 Vitamin B Complex [B-Complex Vitamin] 1 cap PO DAILY 09/07/18 carvediloL [Coreg] 6.25 mg PO BEDTIME 09/07/18 carvediloL [Coreg] 12.5 mg PO DAILY 09/07/18 predniSONE [Deltasone] 10 mg PO DAILY 09/07/18 Smz./Tmp. [Bactrim Ds 800 MG/160 MG] 1 tab PO BID 10 Days #20 tab 09/14/18 - Past Medical/Surgical History Diabetic: Yes -: DM -: HTN -: breast CA -: R. mastectomy -: [place] -: cesarian x3 -: R. hand carpal tunnel sx -: bi knee sx - Family History Mother -: Stroke Father -: Stroke Notes: Alzheimers - Social History Alcohol use: No CD- Drugs: No Caffeine use: Yes Review of Systems is unable to be obtained (Due to altered mental status.) Physical Examination - Physical Exam General: In no apparent distress, Confused HEENT: Mucous membr. moist/pink, Sclerae nonicteric Neck: Supple, JVD not distended Respiratory: Clear to auscultation bilaterally, Normal air movement Cardiovascular: No edema, Regular rate/rhythm, Normal S1 S2 Capillary refill: <2 Seconds Gastrointestinal: Normal bowel sounds, Soft and benign, Non-distended Musculoskeletal: No swelling Integumentary: No rashes Neurological: Other (Nonfocal) - Studies Laboratory Data (last 24 hrs) 11/20/19 23:52: WBC 18.5 H, Hgb 11.4 L, Hct 34.5 L, Plt Count 151 L 11/20/19 23:52: Sodium 139, Potassium 3.5, BUN 14, Creatinine 0.94, Glucose 162 H, Magnesium 1.7 L, Total Bilirubin 0.3, AST 19, ALT 22, Alkaline Phosphatase 91 Microbiology Data (last 24 hrs): 11/20/19 23:46 Nasopharnyx Influenza Type A Antigen Screen - Final 11/20/19 23:46 Nasopharnyx Influenza Type B Antigen Screen - Final Assessment and Plan - Problems (Diagnosis) (1) Sepsis Current Visit: Yes Status: Acute (2) Hypertension Current Visit: Yes Status: Acute (3) DM type 2 (diabetes mellitus, type 2) Current Visit: Yes Status: Acute (4) Metabolic encephalopathy Current Visit: Yes Status: Acute - Plan Admit to the medical floor. Start IV cefepime and vancomycin Follow UA, urine culture and blood cultures. Insulin sliding scale and Lantus insulin for glucose management. Hydralazine IV p.r.n. for BP spikes. Hold diuretics. - Advance Directives Does patient have a Living Will: No Does patient have a Durable POA for Healthcare: Yes
[2019-11-21 03:10] LABS: Urine Blood NEGATIVE (NEG); Urine Glucose NEGATIVE (NEG); Urine Protein NEGATIVE (NEG); Urine Specific Gravity 1.025 (1.005-1.030)
[2019-11-21] MEDS ORDERED: ONDANSETRON 4 MG/2 ML VIAL IV PRN (03:43)
[2019-11-21] MEDS ORDERED: ACETAMINOPHEN 500 MG TAB PO PRN (03:43)
[2019-11-21 04:58] LABS: Absolute Lymphocytes (CBC) 1.3 K/uL (0.7-4.9); Basophils % 0.2 % (0-1.3); Hematocrit 32.3 % (36.0-45.0); Lymphocytes % 6.9 % (15.3-44.8); MPV 8.3 fL (7.6-11.3); RBC Red Blood Cell Count 3.87 M/uL (3.86-4.86)
[2019-11-21] MEDS ORDERED: CEFEPIME 1 GM in NA CHLORIDE 0.9% 100 ML IV SCH (05:00)
[2019-11-21] MEDS: NA CHLORIDE 0.9% 1,000 ML IV SCH ×2 (05:13→17:44)
[2019-11-21] MEDS ORDERED: VANCOMYCIN 1.5 GM in NA CHLORIDE 0.9% 500 ML IV SCH (06:00)
[2019-11-21 06:51] VITALS: BMI 30.9
[2019-11-21] MEDS: INSULIN -REGULAR HUMAN 50 UNIT/0.5 ML ML SQ SCH ×4 (07:30→21:00)
[2019-11-21] MEDS: VANCOMYCIN 1.5 GM in NA CHLORIDE 0.9% 500 ML IV SCH (08:00)
[2019-11-21] MEDS ORDERED: CEFEPIME 1 GM/VIAL IV SCH (09:00)
[2019-11-21] MEDS ORDERED: POTASSIUM CL SA 10 MEQ TAB PO ONE (09:00)
[2019-11-21] MEDS ORDERED: FUROSEMIDE 20 MG TABLET PO ONE (10:53)
[2019-11-21] MEDS ORDERED: carvediloL 12.5 MG TAB PO ONE (10:54)
--- NOTE | 2019-11-21 11:33 | RAD REPORT ---
EXAM DESCRIPTION: RAD - Chest Single View - 11/21/2019 12:55 am CLINICAL HISTORY: COUGH Chest pain. COMPARISON: Chest Single View dated 10/28/2017 FINDINGS: Portable technique limits examination quality. Mild interstitial prominence is seen bilaterally. The heart is moderately enlarged in size. No displa medhat fractures. IMPRESSION: Mild CHF suspected.
--- NOTE | 2019-11-21 11:47 | RAD REPORT ---
EXAM DESCRIPTION: CT ABDOMEN AND PELVIS WITHOUT CONTRAST CLINICAL HISTORY: Abd pain;Fever;Flank pain history of breast cancer. COMPARISON: None Available. TECHNIQUE: CT of the abdomen and pelvis without IV contrast. Evaluation of the solid organs and vasc ulature is suboptimal due to lack of IV contrast. FINDINGS: Lung Bases: The visualized lung bases are clear. Bones: Multilevel degenerative endplate spondylosis and facet arthropathy of the spine. Abdomen: Liver: Nodular contour of the liver. Wedge-shaped hypodensity in the right hepatic lobe of indetermin ate etiology. This region measures 2.9 cm in greatest dimension. There is a second 1.8 cm hypodensity along the falciform ligament. Gallbladder: Prior cholecystectomy. Spleen, Pancreas, and Adrenal Glands: The spleen, pancreas, and adrenal glands are unremarkable. Kidneys: The kidneys have normal size without evidence of hydronephrosis. No obstructing ureteral sarah culi. Vasculature: Aortoiliac atherosclerosis. IVC is unremarkable. Stomach: The stomach and duodenum have normal course. Duodenal diverticulum. Other: No free intraperitoneal air. No free fluid or lymphadenopathy. Pelvis: Bladder: Urinary bladder is unremarkable. Bowel: No dilated loops of large or small bowel. Scattered diverticula of the colon. Large amount s tool in the rectum. Appendix: Normal appendix. Pelvis: Uterus is not enlarged. IMPRESSION: 1. No acute inflammatory or obstructive process identified. 2. Nodular contour of the liver. Wedge-shaped hypodensity in the right hepatic lobe and 1.8 cm hypode nsity in the left hepatic lobe. While this may represent areas of focal fatty infiltration however, g iven history of breast cancer further evaluation with multiphase hepatic CT or MRI recommended for mo re complete characterization. 3. Duodenal diverticulum. 4. Diverticulosis without evidence of acute diverticulitis. 5. Large amount stool in the rectum. This exam was performed according to our departmental dose-optimization program, which includes autom ated exposure control, adjustment of the mA and/or kV according to patient size and/or use of iterati ve reconstruction technique. Electronically signed by: Rubén Braswell 11/21/2019 1:20 AM CDT Due to temporary technical issues with the PACS/Fluency reporting system, reports are being signed by the in house radiologist without review as a courtesy to ensure prompt reporting. The interpreting r adiologist is fully responsible for the content of the report.
--- NOTE | 2019-11-21 11:51 | RAD REPORT ---
EXAM DESCRIPTION: CT HEAD WITHOUT CONTRAST CLINICAL HISTORY: Fever;Headache COMPARISON: None. TECHNIQUE: Axial unenhanced CT imaging of the brain. Reformatted coronal and sagittal images obtaine d. This examination was performed according to our departmental dose optimization program, which include s automated exposure control, adjustment of the mA and/or kV according to patient size and/or use of iterative reconstruction technique. FINDINGS: Mild prominence of the ventricles and sulci due to age-related cortical volume loss. Moder ate decreased white matter attenuation due to chronic microvascular ischemic change. There is no intr acranial bleed. No mass or shift. No evidence of acute infarction. No edema. The cerebellum and vermis appear normal. Fourth ventricle is midline. Prepontine cisterns are not eff aced. Normal sella. Intraorbital contents appear normal. Clear paranasal sinuses. There is partial opacification of the r ight and left mastoid air cells. Skull base and calvarium are intact. Vascular calcifications are pre sent within the cavernous segments of the internal carotid arteries and vertebral arteries. IMPRESSION: 1. Mild to moderate senescent brain changes. No intracranial acute finding. 2. Bilateral mastoid effusions. Electronically signed by: Margareth Dailey DO 11/21/2019 12:57 AM CDT Due to temporary technical issues with the PACS/Fluency reporting system, reports are being signed by the in house radiologist without review as a courtesy to ensure prompt reporting. The interpreting r adiologist is fully responsible for the content of the report.
[2019-11-21] MEDS: HEPARIN 5000 UNIT/ML 1 ML VIAL SQ SCH ×2 (12:59→17:43)
[2019-11-21] MEDS ORDERED: CODEINE 30MG/APAP 300MG TAB PO PRN (14:22)
[2019-11-21] MEDS: CARBOXYMETHYLCELLULOSE SODIUM OP SCH ×2 (17:00→21:00)
[2019-11-21] MEDS: CEFEPIME/SWI 1gm 10 ML IV SCH (17:43)
[2019-11-21] MEDS: carvediloL 6.25 MG TAB PO SCH (20:56)
[2019-11-21] MEDS: HOME MED 1 EA UNK (Mycophenolate Mofetil [Cellcept] 500 MG) PO SCH (21:00)
[2019-11-21] MEDS: HOME MED 1 EA UNK (Cyclosporine [Restasis] 1 DROP) EACH EYE SCH (21:00)
[2019-11-22] MEDS: HEPARIN 5000 UNIT/ML 1 ML VIAL SQ SCH ×3 (01:26→16:18)
[2019-11-22] MEDS: CEFEPIME/SWI 1gm 10 ML IV SCH ×2 (04:41→16:22)
[2019-11-22 04:56] LABS: Magnesium 2.1 mg/dL (1.8-2.4); Potassium 3.1 mmol/L (3.5-5.1)
[2019-11-22] MEDS: INSULIN -REGULAR HUMAN 50 UNIT/0.5 ML ML SQ SCH ×4 (07:30→21:00)
[2019-11-22] MEDS ORDERED: D50W 25 GM/50 ML SYRINGE/VIAL IV PRN (08:41)
[2019-11-22] MEDS: CARBOXYMETHYLCELLULOSE SODIUM OP SCH ×4 (08:54→21:00)
[2019-11-22] MEDS: HOME MED 1 EA UNK (Mycophenolate Mofetil [Cellcept] 500 MG) PO SCH ×2 (08:57→21:00)
[2019-11-22] MEDS: HOME MED 1 EA UNK (Cyclosporine [Restasis] 1 DROP) EACH EYE SCH ×2 (08:57→21:00)
[2019-11-22] MEDS: VITAMIN D 1000 UNIT TAB PO SCH (08:57)
[2019-11-22] MEDS: carvediloL 12.5 MG TAB PO SCH (08:57)
[2019-11-22] MEDS: LORATADINE 10 MG TAB PO SCH (08:57)
[2019-11-22] MEDS ORDERED: POTASSIUM CL SA 10 MEQ TAB PO ONE ×2 (09:00→20:00)
[2019-11-22] MEDS: VANCOMYCIN 1.5 GM in NA CHLORIDE 0.9% 500 ML IV SCH (09:07)
--- NOTE | 2019-11-22 12:30 | RAD REPORT ---
EXAM DESCRIPTION: MRI - Mri Abdomen W/Wo Cont - 11/22/2019 12:03 pm CLINICAL HISTORY: liver lesion COMPARISON: [place] Protocol dated 11/21/2019 TECHNIQUE: Multiplanar imaging of the liver performed using T1 weighted, T2 weighted, T2 haste fat s aturation, T1 inphase/ out of phase is imaging and multiplanar postcontrast T1 fat saturation sequenc ing. An 18 milliliter MultiHance contrast volume was utilized. FINDINGS: Recent noncontrast CT abdomen study showed areas of diminished attenuation in the liver qu estionable for possible mass lesion. A nodular contour seen in the liver on the CT study is repeated on this examination. In the midline l eft lobe a 16 millimeter round mass is present. This is the correlate to the left lobe finding on the CT study. This is homogeneous hypointense T1 and hyperintense T2 in signal. No enhancement on postco ntrast imaging. This is an incidental hepatic cyst. In the anterior right lobe a 4 centimeter wedge-shaped area is identified and is the correlate to the CT finding. This is hyperintense to liver parenchyma on T2 weighted imaging. This is hypointense to the liver on T1 weighted imaging with no significant change in signal on out of phase imaging. Postco ntrast imaging shows this area of liver parenchyma tissue an increase in enhancement relative to the remaining parenchyma. Enhancement is generally homogeneous. Enhancement persists across the dynamic a nd delayed sequences. Serpiginous flow void extends towards the lamonte hepatis. These may be mildly di lated biliary radicals. Elsewhere in the liver no additional lesions seen. No portal vein abnormality identified. No splenic abnormality seen. Along the anterior margin of the pancreatic body a 2.4 centimeter mass is present showing cyst charac teristics. This may be 2 abutting smaller cysts or a cyst with a thin septation. Rim is very thin wit h no enhancement of the rim or internal structures on postcontrast imaging. Several additional smalle r cystic masses are present along the tail of the pancreas. These appear to be discrete from the tort uous splenic vasculature also in this region. No ascites or abnormal lymphadenopathy. IMPRESSION: Cirrhotic liver changes are present without finding suspicious for liver malignancy. The wedge-shaped area of parenchyma in the right lobe is believed to be a non neoplastic parenchymal enhancement variant due to the underlying disease. This will need monitoring on subsequent imaging. The left lobe mass on the recent CT study is a simple cyst that needs no follow-up. Patient has multiple cystic masses in and around the pancreas. These are also very likely benign but warrant ongoing monitoring to assure no IPMN or other cystic pancreatic malignancy. If the patient has any known outside CT studies these could be used for comparison. Follow-up contrast MRI imaging could be performed in 3-6 months to monitor these findings.
[2019-11-22] MEDS: NA CHLORIDE 0.9% 1,000 ML IV SCH (16:21)
[2019-11-22] MEDS: carvediloL 6.25 MG TAB PO SCH (21:03)
[2019-11-22] MEDS: ENSURE HIGH PROTEIN 237 ML CAN PO SCH (21:04)
[2019-11-23] MEDS: HEPARIN 5000 UNIT/ML 1 ML VIAL SQ SCH ×3 (00:31→17:07)
[2019-11-23] MEDS: NA CHLORIDE 0.9% 1,000 ML IV SCH ×3 (03:38→11:31)
[2019-11-23] MEDS: CEFEPIME/SWI 1gm 10 ML IV SCH (05:07)
[2019-11-23 07:19] LABS: Absolute Lymphocytes (CBC) 0.8 K/uL (0.7-4.9); Basophils % 0.7 % (0-1.3); Hematocrit 29.8 % (36.0-45.0); Lymphocytes % 11.7 % (15.3-44.8); MPV 7.9 fL (7.6-11.3); RBC Red Blood Cell Count 3.57 M/uL (3.86-4.86)
[2019-11-23] MEDS: INSULIN -REGULAR HUMAN 50 UNIT/0.5 ML ML SQ SCH ×4 (07:30→21:00)
[2019-11-23 07:40] LABS: Amylase 46 U/L (25-115); BUN Blood Urea Nitrogen 7 mg/dL (7-18); Bicarbonate 28 mmol/L (21-32); Glucose Level 84 mg/dL (74-106); Lipase 39 U/L (73-393); Potassium 3.5 mmol/L (3.5-5.1); Sodium Level 143 mmol/L (136-145)
--- NOTE | 2019-11-23 07:42 | RAD REPORT ---
EXAM DESCRIPTION: RAD - Chest Pa And Lat (2 Views) - 11/23/2019 7:34 am CLINICAL HISTORY: Rule out lung problem, patient increase WBC COMPARISON: Portable November 20, 2019, portable October 28, 2017 TECHNIQUE: Frontal and lateral views of the chest were obtained. FINDINGS: The lungs are clear of a focal consolidation or mass. Interstitial markings are prominent but not clearly different from comparison. Heart size is within normal range for portable imaging. No vascular engorgement seen. No pneumothorax present. Bilateral costophrenic angle blunting is prese nt. No acute bony finding noted. No aortic abnormality. IMPRESSION: No focal mass or consolidation. Small bilateral pleural effusions are suspected.
[2019-11-23] MEDS: HOME MED 1 EA UNK (Cyclosporine [Restasis] 1 DROP) EACH EYE SCH ×2 (07:57→21:00)
[2019-11-23] MEDS: CARBOXYMETHYLCELLULOSE SODIUM OP SCH ×4 (07:57→21:00)
[2019-11-23] MEDS: HOME MED 1 EA UNK (Mycophenolate Mofetil [Cellcept] 500 MG) PO SCH ×2 (07:57→21:00)
[2019-11-23] MEDS: ENSURE HIGH PROTEIN 237 ML CAN PO SCH ×2 (09:00→21:00)
[2019-11-23] MEDS: VITAMIN D 1000 UNIT TAB PO SCH (09:00)
[2019-11-23] MEDS: VANCOMYCIN 1.5 GM in NA CHLORIDE 0.9% 500 ML IV SCH (09:18)
[2019-11-23] MEDS: LORATADINE 10 MG TAB PO SCH (09:18)
[2019-11-23] MEDS: carvediloL 12.5 MG TAB PO SCH (09:19)
[2019-11-23] MEDS ORDERED: POTASSIUM 25 MEQ EFFERV TAB PO ONE (12:00)
--- NOTE | 2019-11-23 18:34 | PN ---
Date of Progress Note: 11/22/2019 The patient's orientation and alertness are considerably improved today, although she is still not ba ck to her baseline. However, she was well. This may create a problem as far as her discharge status is concerned, especially in regard to her functioning, although she is participating in physical the rapy. Her vital signs are stable. She became hypoglycemic, which has happened before when she has b een in the hospital. However, she has stabilized somewhat. Liver MRI was negative for tumor. Howev er, she did have some pancreatic cysts, which may or may not be significant due to her present status . We will continue to monitor, increase her hydration somewhat, and discuss placement with her and S ocial Services tomorrow. HR/MODL Voice ID: [id number] Report ID: [id number]
--- NOTE | 2019-11-23 18:36 | PN ---
Date of Progress Note: 11/21/2019 The patient remained somewhat orientated today. Her appetite is still markedly decreased. Her vital signs are more stable. She has done fairly well on a sliding scale, which indicates to me since her need for insulin so much greater on an outpatient basis that is not complying with the diet and in f act she does state she drinks a lot of cokes. There is no evidence yet of any septic origin. Howeve r, she is now afebrile. White count is still elevated, which she is on a chronic prednisone dose, al beit low dose. We will continue to monitor. HR/MODL Voice ID: [id number] Report ID: [id number]
--- NOTE | 2019-11-23 19:34 | PN ---
Date of Progress Note: 11/23/2019 The patient seems somewhat more orientated and alert today; however, her intake is not better, still not where should be; however, I think it is safe to discontinue her Ross and her IV antibiotics. He r white count is now of 6000 and started her on p.o. antibiotics with idea of her being discharged in the a.m. depending on her responsiveness. The patient's disposition has been discussed with her radha geni who feels that her mental status is almost back to baseline knowing that there has been memory issue over the past year and felt that she would be comfortable with assisted living in the home heal as she was prior to being admitted. Therefore, if her white blood count remained normal and she s tays the same as far as her altered mental status is concerning, we will probably do that tomorrow. HR/MODL Voice ID: [id number] Report ID: [id number]
[2019-11-23] MEDS: carvediloL 6.25 MG TAB PO SCH (21:27)
[2019-11-24] MEDS: HEPARIN 5000 UNIT/ML 1 ML VIAL SQ SCH ×3 (00:26→16:00)
[2019-11-24] MEDS ORDERED: VANCOMYCIN 1.5 GM in NA CHLORIDE 0.9% 500 ML IV SCH ×2 (02:00→03:00)
[2019-11-24 06:03] LABS: Absolute Lymphocytes (CBC) 1.2 K/uL (0.7-4.9); Basophils % 0.2 % (0-1.3); Hematocrit 30.9 % (36.0-45.0); Lymphocytes % 14.7 % (15.3-44.8); MPV 8.9 fL (7.6-11.3); RBC Red Blood Cell Count 3.71 M/uL (3.86-4.86)
[2019-11-24 06:05] LABS: Potassium 3.6 mmol/L (3.5-5.1)
[2019-11-24] MEDS: INSULIN -REGULAR HUMAN 50 UNIT/0.5 ML ML SQ SCH ×4 (07:30→20:54)
[2019-11-24] MEDS: LORATADINE 10 MG TAB PO SCH (08:28)
[2019-11-24] MEDS: carvediloL 12.5 MG TAB PO SCH (08:28)
[2019-11-24] MEDS: ENSURE HIGH PROTEIN 237 ML CAN PO SCH ×2 (08:29→20:53)
[2019-11-24] MEDS: HOME MED 1 EA UNK (Mycophenolate Mofetil [Cellcept] 500 MG) PO SCH ×2 (08:31→20:53)
[2019-11-24] MEDS: CEFDINIR 300 MG CAP PO SCH (08:58)
[2019-11-24] MEDS: CARBOXYMETHYLCELLULOSE SODIUM OPTH SCH ×4 (08:59→20:52)
[2019-11-24] MEDS ORDERED: POTASSIUM CL SA 10 MEQ TAB PO ONE (09:00)
[2019-11-24] MEDS: HOME MED 1 EA UNK (Cyclosporine [Restasis] 1 DROP) OPTH SCH ×2 (09:00→20:51)
[2019-11-24] MEDS: VITAMIN D 1000 UNIT TAB PO SCH (09:07)
[2019-11-24] MEDS: predniSONE 5 MG TAB PO SCH (15:56)
[2019-11-24] MEDS: METFORMIN HCL 500 MG TAB PO SCH (16:00)
--- NOTE | 2019-11-24 19:49 | PN ---
Date of Progress Note: 11/24/2019 The patient is basically status quo physically and mentally. Her white count remains normal. Her katz gars remain normal. In an attempt to discharge her to the [facility] with a sliding scale, this is not possible under her living circumstances; therefore, I will keep her another day, initiate the predni sone at a 2.5 instead of 5, and start her on metformin and see if this has any effect as it is diffic ult to explain why she does so well here as far as her insulin requirements as compared to when she i s at her residence. We will add metformin, prednisone today. Monitor. Has no change. Can probably discharge her in the a.m. HR/MODL Voice ID: [id number] Report ID: [id number]
[2019-11-24] MEDS: carvediloL 6.25 MG TAB PO SCH (20:56)
[2019-11-25] MEDS: HEPARIN 5000 UNIT/ML 1 ML VIAL SQ SCH ×2 (01:06→08:14)
[2019-11-25 05:19] LABS: BUN Blood Urea Nitrogen 6 mg/dL (7-18); Bicarbonate 30 mmol/L (21-32); Glucose Level 138 mg/dL (74-106); Potassium 3.4 mmol/L (3.5-5.1); Sodium Level 140 mmol/L (136-145)
[2019-11-25] MEDS: INSULIN -REGULAR HUMAN 50 UNIT/0.5 ML ML SQ SCH ×2 (07:30→11:30)
[2019-11-25] MEDS: LORATADINE 10 MG TAB PO SCH (08:08)
[2019-11-25] MEDS: predniSONE 5 MG TAB PO SCH (08:09)
[2019-11-25] MEDS: VITAMIN D 1000 UNIT TAB PO SCH (08:09)
[2019-11-25] MEDS: METFORMIN HCL 500 MG TAB PO SCH (08:09)
[2019-11-25] MEDS: carvediloL 12.5 MG TAB PO SCH (08:09)
[2019-11-25] MEDS: CARBOXYMETHYLCELLULOSE SODIUM OPTH SCH ×2 (08:10→13:00)
[2019-11-25] MEDS: CEFDINIR 300 MG CAP PO SCH (08:10)
[2019-11-25] MEDS: HOME MED 1 EA UNK (Cyclosporine [Restasis] 1 DROP) OPTH SCH (08:10)
[2019-11-25] MEDS: ENSURE HIGH PROTEIN 237 ML CAN PO SCH (08:15)
[2019-11-25] MEDS: HOME MED 1 EA UNK (Mycophenolate Mofetil [Cellcept] 500 MG) PO SCH (08:15)
[2019-11-25] MEDS ORDERED: POTASSIUM 25 MEQ EFFERV TAB PO ONE (09:00)
[2019-11-25 09:02] VITALS: O2SAT 98
[2019-11-25 13:23] VITALS: BP 127/59; TEMP 98.6
--- NOTE | 2019-11-25 16:36 | PN ---
Date of Progress Note: 11/25/2019 Subjective: The patient is status quo both mentally, physically, and lab ribeiro. Her sugars have javon ined well under 200 without any insulin. Strongly suggestive of dietary indiscretions at the [facility]. This was discussed with her. However, her approach in the past has been somewhat similar with well controlled sugars in the hospital and poorly controlled as an outpatient. We will try once frances syed on metformin. Remainder of her lab work has also been good. Her white counts remain consistently normal, not sure the etiology of her FUO. We will put her on cefepime for a few more days while at a [facility] living and have them continues to monitor her blood sugars as they have done in the past twic e a day and the prednisone has been decreased to 2.5. This may have something obviously to do with er blood levels as well. She was discharged in fair condition basically at baseline to follow up wit h me in 5 days. Final Diagnoses: FUO with sepsis, possible kidney, altered mental status, insulin-dependent diabetes mellitus, coronary artery disease, hypertension controlled. HR/MODL Voice ID: [id number] Report ID: [id number]
== END 2019-11-25 14:37 | disposition home health service (06) | DRG 871 ==
LOC: ER 22:47 → ERHOLD 11-21 02:48 → 2ND 11-21 04:06
PROVIDERS: ADMIT Family Medicine; ATTEND Family Medicine
DX: A41.9 Sepsis, unspecified organism (principal); G93.41 Metabolic encephalopathy; I10 Essential (primary) hypertension; E11.649 Type 2 diabetes mellitus with hypoglycemia without coma; I25.10 Atherosclerotic heart disease of native coronary artery without angina pectoris; Z88.5 Allergy status to narcotic agent; Z88.0 Allergy status to penicillin; Z79.4 Long term (current) use of insulin; Z79.52 Long term (current) use of systemic steroids; Z79.899 Other long term (current) drug therapy; Z85.3 Personal history of malignant neoplasm of breast; Z90.11 Acquired absence of right breast and nipple; Z20.828 Contact with and (suspected) exposure to other viral communicable diseases; R50.9 Fever, unspecified
CPT/HCPCS: 36415; 51702; 70450; 71045; 71046; 74176; 76377; 80048; 80076; 80202; 81003; 82150; 82947; 83605; 83690; 83735; 83880; 84100; 84132; 84145; 84484; 85025; 87040; 87086; 87088; 87804; 93005; 94760; 96374; 96375; 97110; 97116; 97161; 97530; 99285; J0692; J0696; J1644; J3370; J7030; J7040; J7512; U0003

== ENCOUNTER 2019-12-03 19:25 | Emergency (ER) | payer OTHER ==
--- OUTSIDE RECORDS SUMMARY | 2019-12-03 19:27 | XMS REPORT | Continuity of Care Document ---
:1940 Author Organization [facility] t Address [address] [place] [address] Dr. Cardoso. [address] [place] [id number] Care Team Providers Name Role Phone Unavailable Unavailable Unavailable Problems This patient has no known problems. Allergies, Adverse Reactions, Alerts This patient has no known allergies or adverse reactions. Medications This patient has no known medications. Procedures This patient has no known procedures. Results This patient has no known results.
--- NOTE | 2019-12-03 20:38 | RAD REPORT ---
EXAM DESCRIPTION: RAD - Wrist Right 3 View - 12/03/2019 8:30 pm CLINICAL HISTORY: Right wrist pain status post injury FINDINGS: The bones are osteoporotic No fracture or dislocation is seen. If the patient continues to have symptoms to suggest an occult fr acture then a followup plain film series in 7 days would be recommended.
--- NOTE | 2019-12-03 20:40 | RAD REPORT ---
EXAM DESCRIPTION: RAD - Hand Right 3 View - 12/03/2019 8:30 pm CLINICAL HISTORY: Right hand pain status post injury FINDINGS: No fracture or dislocation is seen. Osteoporosis
--- NOTE | 2019-12-03 21:02 | RAD REPORT ---
EXAM DESCRIPTION: RAD - Pelvis - 12/03/2019 8:48 pm CLINICAL HISTORY: Pelvic pain status post injury FINDINGS: No fracture or dislocation is seen. Osteoporosis If the patient continues to have symptoms to suggest an occult fracture then MRI would be recommended
--- NOTE | 2019-12-03 21:03 | RAD REPORT ---
EXAM DESCRIPTION: RADSacrum And Coccyx12/03/2019 8:49 pm CLINICAL HISTORY: Back pain status post fall FINDINGS: No fracture is seen. Bones are osteoporotic
--- NOTE | 2019-12-03 21:06 | ER ---
Nurse's Notes [facility] Name: Lucy Paris Age: 79 yrs Sex: Female : 1940 Arrival Date: 12/03/2019 Time: 19:29 Bed 30 Private MD: Diagnosis: Abrasion of right hand;Abrasion of left hand;Contusion of lower back and pelvis Presentation: 12/02 19:35 Chief complaint: EMS states: they were toned out for report of pt having a fall without bb LOC and she did not hit her head pt c/o pain to her tailbone. Coronavirus screen: At this time, the client does not indicate any symptoms associated with coronavirus-19. Ebola Screen: No symptoms or risks identified at this time. Initial Sepsis Screen: Does the patient meet any 2 criteria? No. Patient's initial sepsis screen is negative. Does the patient have a suspected source of infection? No. Patient's initial sepsis screen is negative. Risk Assessment: Do you want to hurt yourself or someone else? Patient reports no desire to harm self or others. Onset of symptoms was December 03, 2019. 19:35 Method Of Arrival: EMS: [facility] bb 19:35 Acuity: KATHRYN 3 bb Historical: - Allergies: 19:48 Demerol; bb 19:48 PENICILLINS; bb - Home Meds: 19:48 carvedilol 6.25 mg Oral tab 2 tabs in morning and 1 tab in evening [Active]; bb doxycycline hyclate 100 mg Oral cap 1 cap once daily [Active]; Humalog Sub-Q [Active]; loratadine 10 mg oral tab 1 tab once daily [Active]; mycophenolate mofetil 500 mg Oral tab 1 cap 2 times per day [Active]; pantoprazole 40 mg Oral TbEC 1 tab once daily [Active]; potassium chloride 10 mEq Oral TbER 1 cap 2 times per day [Active]; prednisone 10 mg Oral tab once daily [Active]; Restasis ophthalmic ophthalmic [Active]; torsemide 10 mg oral tab 1 tab once daily [Active]; Vitamin D3 oral oral [Active]; - PMHx: 19:48 breast cancer; Diabetes - NIDDM; Hypertension; bb - Immunization history:: Adult Immunizations up to date. - Social history:: Smoking status: unknown. - Family history:: not pertinent. - Hospitalizations: : No recent hospitalization is reported. Screenin:16 Abuse screen: Denies threats or abuse. Nutritional screening: No deficits noted. ea Tuberculosis screening: No symptoms or risk factors identified. Fall Risk Fall in past 12 months (25 points). Assessment: 19:40 General: Appears in no apparent distress. Behavior is calm, cooperative, appropriate ea for age. Pain: Complains of pain in buttocks. Neuro: Level of Consciousness is awake, alert, obeys commands, Oriented to person, place, time. Cardiovascular: Patient's skin is warm and dry. Respiratory: Airway is patent Respiratory effort is even, unlabored, Respiratory pattern is regular, symmetrical. Derm: skin tear to right forearm and adrienne hands. Musculoskeletal: Circulation, motion, and sensation intact. 20:18 Reassessment: pt taken to x ray. ea 21:06 Reassessment: Patient and/or family updated on plan of care and expected duration. Pain ea level reassessed. Patient is alert, oriented x 3, equal unlabored respirations, skin warm/dry/pink. 22:11 Reassessment: Patient and/or family updated on plan of care and expected duration. Pain ea level reassessed. Patient is alert, oriented x 3, equal unlabored respirations, skin warm/dry/pink. Discharge instruction given to patient and son. Pt left ED via wheelchair per ED staff. Pt assisted to private vehicle per son and ED staff. Pt tolerated well. Vital Signs: 19:35 BP 122 / 77; Pulse 75; Resp 16 S; Temp 98.6(O); Pulse Ox 98% on R/A; Pain 4/10; bb 19:45 BP 127 / 67; Pulse 72; Resp 18; Pulse Ox 98% ; ea 21:11 BP 114 / 73; Pulse 76; Resp 18; Pulse Ox 99% on R/A; ea 22:05 BP 120 / 68; Pulse 70; Resp 18; Temp 98.4; Pulse Ox 99% ; ea ED Course: 19:29 Patient arrived in ED. rn 19:29 Bakari Diana MD is Attending Physician. rn 19:33 Chante Fraser, FRANDY is Primary Nurse. ea 19:36 Triage completed. bb 19:48 Arm band placed on Patient placed in an exam room, on a stretcher, on pulse oximetry. bb 20:00 Patient has correct armband on for positive identification. Bed in low position. Call ea light in reach. 20:29 XRAY Hand RIGHT 3 View In Process Unspecified. EDMS 20:30 XRAY Wrist RIGHT 3 view In Process Unspecified. EDMS 20:48 XRAY Pelvis In Process Unspecified. EDMS 20:48 XRAY Sacrum And Coccyx In Process Unspecified. EDMS 21:06 No provider procedures requiring assistance completed. Patient did not have IV access ea during this emergency room visit. Administered Medications: No medications were administered Outcome: 21:05 Discharge ordered by . rn 22:12 Discharged to [facility], accompanied by son. mani 22:12 Condition: stable 22:12 Discharge instructions given to patient, Instructed on discharge instructions, follow up and referral plans. Demonstrated understanding of instructions, follow-up care. 22:13 Patient left the ED. ea Signatures: Dispatcher [employer] Wendi Pablo RN RN bb Nieto, Roman, MD MD rn Antunez, Elena, RN RN ea
--- NOTE | 2019-12-03 21:06 | EDPHYS ---
Physician Documentation [facility] Name: Lucy Paris Age: 79 yrs Sex: Female : 1940 Arrival Date: 12/03/2019 Time: 19:29 Bed 30 Private MD: ED Physician Bakari Diana HPI: 12/02 19:32 This 79 yrs old Female presents to ER via Unassigned with complaints of fall. rn 19:32 Details of fall: The patient fell from an upright position, while walking. Onset: The rn symptoms/episode began/occurred just prior to arrival. Associated injuries: The patient sustained buttocks, right arm, left arm. Severity of symptoms: At their worst the symptoms were mild, in the emergency department the symptoms are unchanged. The patient has experienced similar episodes in the past. 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 Reports pain to right wrist/hand, left hand, and "buttocks". No hip pain.. Historical: - Allergies: 19:48 Demerol; bb 19:48 PENICILLINS; bb - Home Meds: 19:48 carvedilol 6.25 mg Oral tab 2 tabs in morning and 1 tab in evening [Active]; bb doxycycline hyclate 100 mg Oral cap 1 cap once daily [Active]; Humalog Sub-Q [Active]; loratadine 10 mg oral tab 1 tab once daily [Active]; mycophenolate mofetil 500 mg Oral tab 1 cap 2 times per day [Active]; pantoprazole 40 mg Oral TbEC 1 tab once daily [Active]; potassium chloride 10 mEq Oral TbER 1 cap 2 times per day [Active]; prednisone 10 mg Oral tab once daily [Active]; Restasis ophthalmic ophthalmic [Active]; torsemide 10 mg oral tab 1 tab once daily [Active]; Vitamin D3 oral oral [Active]; - PMHx: 19:48 breast cancer; Diabetes - NIDDM; Hypertension; bb - Immunization history:: Adult Immunizations up to date. - Social history:: Smoking status: unknown. - Family history:: not pertinent. - Hospitalizations: : No recent hospitalization is reported. ROS: 19:32 Constitutional: Negative for fever, chills, and weight loss, Eyes: Negative for injury, rn pain, redness, and discharge, Neck: Negative for injury, pain, and swelling, Cardiovascular: Negative for chest pain, palpitations, and edema, Respiratory: Negative for shortness of breath, cough, wheezing, and pleuritic chest pain, Abdomen/GI: Negative for abdominal pain, nausea, vomiting, diarrhea, and constipation, MS/Extremity: + right wrist and hand pain, left hand pain Skin: + skin tears to both hands and right forearm Neuro: Negative for headache, weakness, numbness, tingling, and seizure. Exam: 19:32 Constitutional: This is a well developed, well nourished patient who is awake, alert, rn and in no acute distress. Head/Face: Normocephalic, atraumatic. Eyes: Pupils equal round and reactive to light, extra-ocular motions intact. Lids and lashes normal. Periorbital areas with no swelling, redness, or edema. Cardiovascular: Regular rate and rhythm. No pulse deficits. Respiratory: No increased work of breathing, no retractions or nasal flaring. Abdomen/GI: soft, non-tender Back: No spinal tenderness. No costovertebral tenderness. Full range of motion. Skin: Warm, dry, + irregular very superficial skin tears right distal forearm, right dorsal hand, left dorsal hand, no suturable lacerations. MS/ Extremity: Pulses equal, no cyanosis. Neurovascular intact. Full, normal range of motion. Equal circumference. + mild tenderness right wrist and distal forearm. NO deformity. Neuro: Awake and alert, GCS 15, oriented to person, place, time, and situation. Cranial nerves II-XII grossly intact. Motor strength 5/5 in all extremities. Sensory grossly intact. Cerebellar exam normal. Vital Signs: 19:35 BP 122 / 77; Pulse 75; Resp 16 S; Temp 98.6(O); Pulse Ox 98% on R/A; Pain 4/10; bb 19:45 BP 127 / 67; Pulse 72; Resp 18; Pulse Ox 98% ; ea 21:11 BP 114 / 73; Pulse 76; Resp 18; Pulse Ox 99% on R/A; ea 22:05 BP 120 / 68; Pulse 70; Resp 18; Temp 98.4; Pulse Ox 99% ; ea MDM: 19:29 Patient medically screened. rn 21:04 Differential diagnosis: abrasion, contusion, fracture, sprain, strain. Data reviewed: rn vital signs, nurses notes, radiologic studies, plain films, and as a result, I will discharge patient. Counseling: I had a detailed discussion with the patient and/or guardian regarding: the historical points, exam findings, and any diagnostic results supporting the discharge/admit diagnosis, radiology results, the need for outpatient follow up, to return to the emergency department if symptoms worsen or persist or if there are any questions or concerns that arise at home. Response to treatment: the patient's symptoms have mildly improved after treatment, and as a result, I will discharge patient. Special discussion: I discussed with the patient/guardian in detail that at this point there is no indication for admission to the hospital. It is understood, however, that if the symptoms persist or worsen the patient needs to return immediately for re-evaluation. ED course: Pt requesting to go home, states "is fine", performed xrays of extremities and pelvic/coccyx, which are negative, wounds dressed with steri-strips and kerlix since non-suturable skin tears, normal neuro exam, will dc home. . 12/02 21:54 Order name: Urine Microscopic Only [facility] 12/02 21:54 Order name: Urine Dipstick--Ancillary (enter results) [facility] 12/02 19:30 Order name: XRAY Hand RIGHT 3 View; Complete Time: 21:02 12/02 19:30 Order name: XRAY Wrist RIGHT 3 view; Complete Time: 21:02 12/02 19:30 Order name: XRAY Pelvis; Complete Time: 21:04 12/02 22:13 Order name: Urine Culture [facility] 12/02 19:30 Order name: XRAY Sacrum And Coccyx; Complete Time: 21:04 12/02 19:30 Order name: Wound Care; Complete Time: 20:16 rn 12/02 21:48 Order name: Urine Dipstick-Ancillary (obtain specimen); Complete Time: 21:50 rn Administered Medications: No medications were administered Disposition: 12/03/19 21:05 Discharged to Home. Impression: Abrasion of right hand, Abrasion of left hand, Contusion of lower back and pelvis. - Condition is Stable. - Discharge Instructions: Contusion, Fall Prevention in the Home, Skin Tear Care. - Medication Reconciliation Form, Thank You Letter, Antibiotic Education, Prescription Opioid Use form. - Follow up: Private Physician; When: As needed; Reason: Recheck today's complaints, Re-evaluation by your physician. - Problem is new. - Symptoms have improved. Signatures: Dispatcher [employer] Wendi Pablo RN RN bb Nieto, Roman, MD MD rn Antunez, Elena, RN RN ea Corrections: (The following items were deleted from the chart) 22:13 21:05 12/03/2019 21:05 Discharged to Home. Impression: Abrasion of right hand; Abrasion ea of left hand; Contusion of lower back and pelvis. Condition is Stable. Forms are Medication Reconciliation Form, Thank You Letter, Antibiotic Education, Prescription Opioid Use. Follow up: Private Physician; When: As needed; Reason: Recheck today's complaints, Re-evaluation by your physician. Problem is new. Symptoms have improved. rn
[2019-12-03 21:58] LABS: Urine Blood NEGATIVE (NEG); Urine Glucose NEGATIVE (NEG); Urine Protein NEGATIVE (NEG); Urine Specific Gravity 1.025 (1.005-1.030)
[2019-12-03 22:11] LABS: Urine Amorphous Sediment 2+ /HPF (NONE SEEN); Urine Bacteria >50 /HPF (<20); Urine Culture Reflex Order REFLEXED; Urine Mucus 2+ /HPF (NONE SEEN)
== END 2019-12-03 22:13 | disposition home or self-care (01) ==
LOC: ER 19:25
DX: S60.512A Abrasion of left hand, initial encounter (principal); S60.511A Abrasion of right hand, initial encounter; S30.0XXA Contusion of lower back and pelvis, initial encounter; W18.39XA Other fall on same level, initial encounter; Z91.81 History of falling; Y93.9 Activity, unspecified; Y92.9 Unspecified place or not applicable; Z88.0 Allergy status to penicillin; Z88.6 Allergy status to analgesic agent; E11.9 Type 2 diabetes mellitus without complications; I10 Essential (primary) hypertension; Z85.3 Personal history of malignant neoplasm of breast
CPT/HCPCS: 72170; 72220; 81003; 81015; 87086; 87088; 99284

== ENCOUNTER 2019-12-08 09:44 | Observation (INO) | payer OTHER ==
--- NOTE | 2019-12-08 10:17 | RAD REPORT ---
EXAM DESCRIPTION: CT - Head Brain Wo Cont - 12/08/2019 10:06 am CLINICAL HISTORY: Alteration of awareness/confusion COMPARISON: November 21, 2019 TECHNIQUE: Computed axial tomography of the head was obtained. IV contrast was not requested. All CT scans are performed using dose optimization technique as appropriate and may include automated exposure control or mA/KV adjustment according to patient size. FINDINGS: An intracranial bleed is not seen . The ventricles are normal in caliber. No extra-axial fluid collection is noted. Mild to moderate low-density areas within periventricular, deep and subcortical white matter likely r epresent ischemic changes secondary to small vessel disease. Fluid within the sinuses/ mastoids is not seen. IMPRESSION: No acute intracranial abnormality is seen. If patient's symptoms persist MRI of the bra in would be recommended.
[2019-12-08 10:49] LABS: Absolute Lymphocytes (CBC) 1.1 K/uL (0.7-4.9); Lymphocytes % 11.8 % (15.3-44.8)
[2019-12-08 10:58] LABS: Potassium 3.8 mmol/L (3.5-5.1)
[2019-12-08 11:53] LABS: Urine Blood NEGATIVE (NEG); Urine Glucose NEGATIVE (NEG); Urine Protein TRACE (NEG); Urine Specific Gravity 1.025 (1.005-1.030); Urine pH 5.5 (5.0-7.0)
[2019-12-08 11:53] LABS: Urine Bacteria 20-50 /HPF (<20); Urine Culture Reflex Order REFLEXED; Urine Mucus 2+ /HPF (NONE SEEN); Urine RBC <5 /HPF (NONE SEEN); Urine Yeast FEW (NONE SEEN)
--- NOTE | 2019-12-08 11:57 | ER ---
Nurse's Notes [facility] Name: Lucy Paris Age: 79 yrs Sex: Female : 1940 Arrival Date: 12/08/2019 Time: 09:47 Bed 6 Private MD: Diagnosis: Dehydration;Altered mental status, unspecified Presentation: 12/07 09:55 Chief complaint: Patient states: Pt presents via EMS from [facility] facility for reports of AMS and decreased appetite. Upon arrival pt is noted to be AAOx4 with NADN, states that recently had her teeth pulled but her appetite has not decreased; pt only c/o tailbone pain from previous fall that she was seen here for recently. No other complaints presented at this time. Coronavirus screen: Client denies travel out of the [place] in the last 14 days. At this time, the client does not indicate any symptoms associated with coronavirus-19. Ebola Screen: No symptoms or risks identified at this time. Initial Sepsis Screen: Does the patient meet any 2 criteria? No. Patient's initial sepsis screen is negative. Does the patient have a suspected source of infection? No. Patient's initial sepsis screen is negative. Risk Assessment: Do you want to hurt yourself or someone else? Patient reports no desire to harm self or others. Onset of symptoms was December 08, 2019. 09:55 Method Of Arrival: EMS [facility] 09:55 Acuity: KATHRYN 3 [facility] Triage Assessment: 10:00 General: Appears in no apparent distress. Behavior is calm, cooperative, appropriate [facility] for age. Pain: Complains of pain in coccyx Pain began 1 week ago. EENT: No deficits noted. No signs and/or symptoms were reported regarding the EENT system. Neuro: No deficits noted. Level of Consciousness is awake, alert, obeys commands, Oriented to person, place, time, situation, Appropriate for age Web Applications Architect are equal bilaterally Moves all extremities. Speech is normal, Facial symmetry appears normal, Pupils are. Cardiovascular: No deficits noted. Denies chest pain. Respiratory: No deficits noted. Airway is patent Respiratory effort is even, unlabored, Respiratory pattern is regular, symmetrical, Denies shortness of breath. GI: No deficits noted. No signs and/or symptoms were reported involving the gastrointestinal system. : No deficits noted. No signs and/or symptoms were reported regarding the genitourinary system. Derm: Wound noted Other: multiple skin tears noted to adrienne upper extremities. Musculoskeletal: No deficits noted. No signs and/or symptoms reported regarding the musculoskeletal system. Historical: - Allergies: 10:02 Demerol; jr10 10:02 PENICILLINS; jr10 - Home Meds: 10:02 carvedilol 6.25 mg Oral tab 2 tabs in morning and 1 tab in evening [Active]; Humalog jr10 Sub-Q [Active]; loratadine 10 mg Oral tab 1 tab once daily [Active]; mycophenolate mofetil 500 mg Oral tab 1 cap 2 times per day [Active]; pantoprazole 40 mg Oral TbEC 1 tab once daily [Active]; potassium chloride 10 mEq Oral TbER 1 cap 2 times per day [Active]; Restasis ophthalmic [Active]; torsemide 10 mg Oral tab 1 tab once daily [Active]; 14:35 prednisone 5 mg oral tab once daily [Active]; Vitamin D3 1,000 unit oral tab daily jr10 [Active]; B-Complex oral tab daily [Active]; PreserVision AREDS 2 oral oral daily [Active]; acetaminophen-codeine 300-30 mg Oral tab as needed for Pain [Active]; Clotrimazole-Betamethasone Topical as needed [Active]; triamcinolone acetonide 0.1 % Topical crea 2 times per day [Active]; - PMHx: 10:02 Hypertension; Diabetes - NIDDM; jr10 12:41 breast cancer; NO STICKS/BP IN RIGHT ARM; jr10 - Immunization history:: Adult Immunizations up to date. - Social history:: Smoking status: unknown. - Family history:: not pertinent. - Hospitalizations: : No recent hospitalization is reported. Screenin:00 Abuse screen: Denies threats or abuse. Denies injuries from another. Nutritional jr10 screening: No deficits noted. Tuberculosis screening: No symptoms or risk factors identified. Fall Risk Fall in past 12 months (25 points). No secondary diagnosis (0 pts). IV access (20 points). Ambulatory Aid- Crutches/Cane/Walker (15 pts). Gait- Normal/Bed Rest/Wheelchair (0 pts) Mental Status- Oriented to own ability (0 pts). Assessment: 10:29 General: SEE TRIAGE ASSESSMENT. jr10 12:42 Reassessment: Spoke with daughter about POC with pt, states that pt has a hx of breast jr10 CA and should not have any sticks/BP on right arm. Noted that IV is in right arm, will pull IV and place limb alert to extremity. Updated pt hx of chart to reflect right limb alert. 13:39 Reassessment: Pt family contact information: Kyleigh (daughter): [phone]. jr10 14:00 Reassessment: Patient and/or family updated on plan of care and expected duration. Pain jr10 level reassessed. Patient is alert, oriented x 3, equal unlabored respirations, skin warm/dry/pink. Vital Signs: 09:55 BP 140 / 72; Pulse 69; Resp 20; Temp 98.3(O); Pulse Ox 100% on R/A; Pain 5/10; jr10 12:01 BP 133 / 70; Pulse 65; Resp 20; Pulse Ox 100% ; jr10 13:00 BP 147 / 68; Pulse 66; Resp 20; Pulse Ox 99% on R/A; jr10 14:00 BP 140 / 73; Pulse 57; Resp 20; Pulse Ox 99% on R/A; jr10 15:00 BP 150 / 75; Pulse 66; Resp 20; Pulse Ox 100% on R/A; jr10 16:16 BP 130 / 80; Pulse 66; Resp 20; Pulse Ox 100% on R/A; jr10 ED Course: 09:47 Patient arrived in ED. em1 09:51 Bakari Diana MD is Attending Physician. rn 09:53 Justino Paula, FRANDY is Primary Nurse. bp 09:59 Triage completed. jr10 10:00 Patient has correct armband on for positive identification. Placed in gown. Bed in low jr10 position. Call light in reach. Side rails up X2. Pulse ox on. NIBP on. 10:06 CT Head Brain wo Cont In Process Unspecified. EDMS 10:06 Arm band placed on. jr10 10:30 No provider procedures requiring assistance completed. Inserted saline lock: 20 gauge jr10 in right forearm, using aseptic technique. IV is patent, is intact, with good blood return, Flushed. 11:56 Chon Shoemaker MD is Hospitalizing Provider. rn 12:45 IV discontinued, intact, bleeding controlled, No redness/swelling at site. Pressure jr10 dressing applied. 16:16 Inserted saline lock: 20 gauge in left antecubital area, using aseptic technique. IV is jr10 patent, is intact, with good blood return, Flushed. 16:24 Patient admitted, IV remains in place. jr10 Administered Medications: 12:00 Drug: NS 0.9% 500 ml Route: IV; Rate: bolus; Site: right forearm; jr10 12:42 Follow up: Response: No adverse reaction; IV Status: Completed infusion jr10 Outcome: 11:57 Decision to Hospitalize by Provider. rn 13:38 Admitted to ER Hold. Please see [facility] for further documentation. jr10 13:38 Condition: stable 13:38 Instructed on the need for admit. 16:01 Admitted to Med/surg accompanied by tech, via wheelchair, room 228, with chart, Report jr10 called to Frandy Mcclellan 16:01 Condition: stable 16:01 Instructed on the need for admit. 16:25 Patient left the ED. jr10 Signatures: Dispatcher [employer] EDMS Bakari Diana MD MD rn Martinez, Eric em1 Justino Paula RN RN bp Rivera, Jessica, RN RN jr10 Corrections: (The following items were deleted from the chart) 12:41 10:02 PMHx: breast cancer; jr10 10 14:35 10:02 Home Meds: doxycycline hyclate 100 mg Oral cap 1 cap once daily; jr10 10 14:35 10:02 Home Meds: prednisone 10 mg Oral tab once daily; jr10 10 14:35 10:02 Home Meds: Vitamin D3 Oral; jr10 jr10
--- NOTE | 2019-12-08 11:57 | EDPHYS ---
Physician Documentation [facility] Name: Lucy Paris Age: 79 yrs Sex: Female : 1940 Arrival Date: 12/08/2019 Time: 09:47 Bed 6 Private MD: ED Physician Bakari Diana HPI: 12/07 10:05 This 79 yrs old Female presents to ER via EMS with complaints of generalized rn weakness, not eating. 10:05 Brought by ambulance from [facility], given report of AMS, not eating. + fall recently rn with negative xrays. Patient states not eating because does not have teeth and the staff is not cutting up the food for her. States drinking water. Reports after fall is achy and not getting around much. No fever/cough/sob/chest pain/abd pain. + mild diarrhea. . Onset: The symptoms/episode began/occurred at an unknown time. Severity of symptoms: At their worst the symptoms were mild in the emergency department the symptoms are unchanged. The patient has not experienced similar symptoms in the past. The patient has been recently seen at the [facility] Emergency Department. Historical: - Allergies: 10:02 Demerol; jr10 10:02 PENICILLINS; jr10 - Home Meds: 10:02 carvedilol 6.25 mg Oral tab 2 tabs in morning and 1 tab in evening [Active]; Humalog jr10 Sub-Q [Active]; loratadine 10 mg Oral tab 1 tab once daily [Active]; mycophenolate mofetil 500 mg Oral tab 1 cap 2 times per day [Active]; pantoprazole 40 mg Oral TbEC 1 tab once daily [Active]; potassium chloride 10 mEq Oral TbER 1 cap 2 times per day [Active]; Restasis ophthalmic [Active]; torsemide 10 mg Oral tab 1 tab once daily [Active]; 14:35 prednisone 5 mg oral tab once daily [Active]; Vitamin D3 1,000 unit oral tab daily jr10 [Active]; B-Complex oral tab daily [Active]; PreserVision AREDS 2 oral oral daily [Active]; acetaminophen-codeine 300-30 mg Oral tab as needed for Pain [Active]; Clotrimazole-Betamethasone Topical as needed [Active]; triamcinolone acetonide 0.1 % Topical crea 2 times per day [Active]; - PMHx: 10:02 Hypertension; Diabetes - NIDDM; jr10 12:41 breast cancer; NO STICKS/BP IN RIGHT ARM; jr10 - Immunization history:: Adult Immunizations up to date. - Social history:: Smoking status: unknown. - Family history:: not pertinent. - Hospitalizations: : No recent hospitalization is reported. ROS: 10:05 Constitutional: Negative for fever, chills, and weight loss, Eyes: Negative for injury, rn pain, redness, and discharge, Neck: Negative for injury, pain, and swelling, Cardiovascular: Negative for chest pain, palpitations, and edema, Respiratory: Negative for shortness of breath, cough, wheezing, and pleuritic chest pain, Abdomen/GI: Negative for abdominal pain, nausea, vomiting, diarrhea, and constipation, Back: + tailbone pain from fall : Negative for injury, bleeding, discharge, and swelling, MS/Extremity: Negative for injury and deformity, Skin: Negative for injury, rash, and discoloration, Neuro: Negative for headache, numbness, tingling, and seizure. Exam: 10:05 Constitutional: This is a well developed, well nourished patient who is awake, alert, rn and in no acute distress. Head/Face: Normocephalic, atraumatic. Cardiovascular: Regular rate and rhythm. No pulse deficits. Respiratory: Speaking full sentences. No increased work of breathing, no retractions or nasal flaring. Abdomen/GI: soft, non-tender Skin: + healing skin tears on bilateral upper ext MS/ Extremity: Pulses equal, no cyanosis. Neurovascular intact. Full, normal range of motion. Neuro: Awake and alert, GCS 15, oriented to person, place, time, and situation. Cranial nerves II-XII grossly intact. Motor strength 4/5 in all extremities. Sensory grossly intact Vital Signs: 09:55 BP 140 / 72; Pulse 69; Resp 20; Temp 98.3(O); Pulse Ox 100% on R/A; Pain 5/10; jr10 12:01 BP 133 / 70; Pulse 65; Resp 20; Pulse Ox 100% ; jr10 13:00 BP 147 / 68; Pulse 66; Resp 20; Pulse Ox 99% on R/A; jr10 14:00 BP 140 / 73; Pulse 57; Resp 20; Pulse Ox 99% on R/A; jr10 15:00 BP 150 / 75; Pulse 66; Resp 20; Pulse Ox 100% on R/A; jr10 16:16 BP 130 / 80; Pulse 66; Resp 20; Pulse Ox 100% on R/A; jr10 MDM: 09:51 Patient medically screened. rn 11:55 Differential Diagnosis dehydration, UTI, depression. Data reviewed: vital signs, nurses rn notes, lab test result(s), radiologic studies, CT scan, and as a result, I will admit patient. Counseling: I had a detailed discussion with the patient and/or guardian regarding: the historical points, exam findings, and any diagnostic results supporting the discharge/admit diagnosis, lab results, radiology results, the need for further work-up and treatment in the hospital. Response to treatment: the patient's symptoms have mildly improved after treatment, and as a result, I will admit patient. Admission orders: after a detailed discussion of the patient's condition and case, the admit orders are written by me. ED course: After discussion with Kayla Shoemaker, plan to admit for observation, IVF, and further evaluation. NO acute findings here. Likely multi-factorial given no teeth to eat, + hyperglycemia, depression. . 12/07 09:52 Order name: CBC with Diff; Complete Time: 11:22 rn 12/07 09:52 Order name: Basic Metabolic Panel; Complete Time: 11:22 rn 12/07 09:52 Order name: CT Head Brain wo Cont; Complete Time: 10:18 rn 12/07 09:52 Order name: Urine Microscopic Only rn 12/07 11:32 Order name: Urine Dipstick--Ancillary (enter results) em1 12/07 11:55 Order name: Urine Culture [facility] 12/07 09:52 Order name: IV Start; Complete Time: 10:29 rn 12/07 09:52 Order name: Urine Dipstick-Ancillary (obtain specimen); Complete Time: 11:31 rn Administered Medications: 12:00 Drug: NS 0.9% 500 ml Route: IV; Rate: bolus; Site: right forearm; 10 12:42 Follow up: Response: No adverse reaction; IV Status: Completed infusion jr10 Disposition: 12/08/19 11:57 Hospitalization ordered by Chon Shoemaker for Observation. Preliminary diagnosis are Dehydration, Altered mental status, unspecified. - Bed requested for Telemetry/MedSurg (observation). - Status is Observation. jr10 - Condition is Stable. - Problem is an ongoing problem. - Symptoms have improved. Signatures: Dispatcher [employer] Kesha Caraballo, RN RN dw Bakari Diana MD MD rn Rivera, Jessica, RN RN jr10 Corrections: (The following items were deleted from the chart) 12:41 10:02 PMHx: breast cancer; jr10 jr10 14:35 10:02 Home Meds: doxycycline hyclate 100 mg Oral cap 1 cap once daily; jr10 jr10 14:35 10:02 Home Meds: prednisone 10 mg Oral tab once daily; jr10 10 14:35 10:02 Home Meds: Vitamin D3 Oral; jr10 jr 14:38 11:57 Hospitalization Ordered by Chon Shoemaker MD for Observation. Preliminary dw diagnosis is Dehydration; Altered mental status, unspecified. Bed requested for Telemetry/MedSurg (observation). Status is Observation. Condition is Stable. Problem is an ongoing problem. Symptoms have improved. rn 16:25 14:38 12/08/2019 11:57 Hospitalization Ordered by Chon Shoemaker MD for Observation. jr10 Preliminary diagnosis is Dehydration; Altered mental status, unspecified. Bed requested for Telemetry/MedSurg (observation). Status is Observation. Condition is Stable. Problem is an ongoing problem. Symptoms have improved. dw
[2019-12-08] MEDS ORDERED: NA CHLORIDE 0.9% 500 ML ONE (12:08)
[2019-12-08] MEDS ORDERED: NA CHLORIDE 0.9% 1,000 ML IV SCH (16:53)
[2019-12-08] MEDS ORDERED: ONDANSETRON 4 MG/2 ML VIAL IV PRN (16:53)
[2019-12-08 18:58] VITALS: BMI 34.3
[2019-12-09] MEDS: AMITRIPTYLINE 25 MG TAB PO SCH ×2 (01:08→21:04)
[2019-12-09] MEDS ORDERED: D50W 25 GM/50 ML SYRINGE/VIAL IV PRN (01:29)
[2019-12-09] MEDS ORDERED: GLUCAGON 1 MG/VIAL IM PRN (01:29)
[2019-12-09] MEDS: NA CHLORIDE 0.9% 1,000 ML IV SCH ×2 (02:20→12:22)
[2019-12-09 06:15] LABS: Absolute Lymphocytes (CBC) 1.4 K/uL (0.7-4.9); Basophils % 1.4 % (0-1.3); Hematocrit 32.2 % (36.0-45.0); Lymphocytes % 16.4 % (15.3-44.8); MPV 9.3 fL (7.6-11.3); RBC Red Blood Cell Count 3.83 M/uL (3.86-4.86)
[2019-12-09 06:24] LABS: Potassium 3.7 mmol/L (3.5-5.1)
[2019-12-09] MEDS: PANTOPRAZOLE 40MG TABLET PO SCH (07:45)
[2019-12-09] MEDS: CELLCEPT 500 MG PO SCH ×2 (09:00→21:00)
[2019-12-09] MEDS: REFRESH PLUS EACH EYE SCH ×4 (09:00→21:00)
[2019-12-09] MEDS: VITAMIN B COMPLEX 1 CAP PO SCH (09:14)
[2019-12-09] MEDS: predniSONE 5 MG TAB PO SCH (09:14)
[2019-12-09] MEDS: VITAMIN D 1000 UNIT TAB PO SCH (09:15)
[2019-12-09] MEDS: POTASSIUM CL SA 10 MEQ TAB PO SCH (09:15)
[2019-12-09] MEDS: TORSEMIDE 20 MG TAB PO SCH (09:15)
[2019-12-09] MEDS: INSULIN -REGULAR HUMAN 50 UNIT/0.5 ML ML SQ SCH ×3 (09:16→16:03)
[2019-12-09 09:24] VITALS: O2SAT 99
[2019-12-09] MEDS ORDERED: ENSURE HIGH PROTEIN 237 ML CAN PO PRN (13:48)
--- NOTE | 2019-12-09 16:46 | HP ---
Date of Admission: 12/08/2019 Entrance Complaint: Painful coccyx, general malaise, anorexia. History Of Present Illness: The patient states she fell approximately 2-3 days prior to being seen i n the ER, at which time she landed on her buttock. Since then, she said she has had considerable daniel n in the coccygeal area, however, it has improved somewhat since the initial trauma. She did require assistance to get up when she slipped, but there was no apparent loss of consciousness and no vomiti ng. Incidentally, noted that CT scan in the ER showed no acute trauma, significant microvascular gaby nges compatible with her age and disease processes. In any event, she was not eating really well bef ore this. Has been hospitalized about 2 weeks ago for dehydration. She said that her appetite is dec reased since the fall, however, she states she is drinking more and feeling having difficulty eating because of her lack of teeth which there has been some issues with setting up her dental appointments . This will be looked into. Past Medical History: NIDDM, controlled on insulin, no sliding scale available in assisted living, t herefore given insulin prior to her meals. She has been relatively good control. Hypertension, good control. The patient states she has not had the energy to mobilize since she fell. Prior to that, she was offered physical therapy on the last admission discharge, however, she felt it was not necess parish. However, she changed her opinion at this stage and I think we will try initiate that when the t johanny comes that she could return to her assisted living. Family History: Noncontributory. Social History: Nonsmoker, nondrinker. Physical Examination: General: The patient is a rather lethargic, elderly female, orientated to person, but not to place. Vital Signs: Stable. Head and neck: Normocephalic. Pupils equal and reactive to light and accommodation. Fundi negative. Trachea midline. Thyroid not palpable. ENT: Negative. Chest: Clear to P and A. CARDIOVASCULAR: PMI in midclavicular line. Heart sounds normal. Peripheral pulses present and equa l bilaterally. Abdomen: No organomegaly. Bowel sounds present. Extremities: Slightly tender in the coccygeal area. Otherwise, good motion in upper and lower extre mities. Peripheral pulses present and equal bilaterally as mentioned above. RECTAL/PELVIC: Deferred. Impression: Contusion in coccyx, dehydration, anorexia, AMS. Plan: The patient will be admitted, placed on IV fluids. Monitor her blood sugars to see if the pre meal insulin is in fact controlling her diabetes. HR/MODL Voice ID: [id number]
[2019-12-09] MEDS ORDERED: carvediloL 3.125 MG TAB PO SCH (21:00)
[2019-12-10] MEDS: NA CHLORIDE 0.9% 1,000 ML IV SCH ×2 (00:34→02:29)
[2019-12-10] MEDS: VITAMIN D 1000 UNIT TAB PO SCH (09:00)
[2019-12-10] MEDS: REFRESH PLUS EACH EYE SCH ×2 (09:00→13:00)
[2019-12-10] MEDS: CELLCEPT 500 MG PO SCH (09:00)
[2019-12-10] MEDS: INSULIN -REGULAR HUMAN 50 UNIT/0.5 ML ML SQ SCH ×2 (09:22→13:21)
[2019-12-10] MEDS: PANTOPRAZOLE 40MG TABLET PO SCH (09:23)
[2019-12-10] MEDS: TORSEMIDE 20 MG TAB PO SCH (09:23)
[2019-12-10] MEDS: VITAMIN B COMPLEX 1 CAP PO SCH (09:23)
[2019-12-10] MEDS: predniSONE 5 MG TAB PO SCH (09:23)
[2019-12-10] MEDS: POTASSIUM CL SA 10 MEQ TAB PO SCH (09:23)
--- NOTE | 2019-12-10 12:38 | PN ---
Date of Progress Note: 12/10/2019 Subjective: The patient seems more alert this morning, although she is still somewhat confused. It is the time factor of events and apparently the fall was prior to her first hospitalization, not this one. In any event, discussion of her social situation where she is at was made with the patient. I think some influence on her generalized condition including her anorexia. However, dietary consulta tion was obtained and will be discussed with the health people. I think home health can be consulted as well to stimulate her social situation as far as activity level. This will be discussed with her daughter. Physical therapy may be one avenue and certainly would be helpful in her generalized cond ition. This will be discussed with home health. She will be discharged. Ross discontinued with ad dition of Elavil to her medication. Be followed up next week in telemedicine. HR/MODL Voice ID: [id number] Report ID: [id number]
[2019-12-10 14:37] VITALS: BP 131/60; TEMP 97
--- NOTE | 2019-12-12 14:59 | PN ---
Date of Progress Note: 12/09/2019 Subjective: The patient seems more orientated this afternoon. According to the nurses, she has been more alert. She also has participated in physical therapy. Her appetite is improved somewhat. Sig nificantly, her hydration has improved both chemically and clinically with creatinine , BUN, GFR gareth edly improved. We will continue with the IV fluids, physical therapy and could probably be discharge d to her assisted living in the morning. HR/MODL Voice ID: [id number] Report ID: [id number]
== END 2019-12-10 13:29 | disposition home or self-care (01) ==
LOC: ER 09:44 → ERHOLD 12:36 → 2ND 16:15
PROVIDERS: ADMIT Family Medicine; ATTEND Family Medicine
DX: E86.0 Dehydration (principal); R63.0 Anorexia; R41.82 Altered mental status, unspecified; S30.0XXA Contusion of lower back and pelvis, initial encounter; W19.XXXA Unspecified fall, initial encounter; E11.9 Type 2 diabetes mellitus without complications; I10 Essential (primary) hypertension; Z20.828 Contact with and (suspected) exposure to other viral communicable diseases; Z79.4 Long term (current) use of insulin; Z79.52 Long term (current) use of systemic steroids; Z79.899 Other long term (current) drug therapy; Z85.3 Personal history of malignant neoplasm of breast
CPT/HCPCS: 87088; 85025 ×2; 87086; 80048 ×2; 36415 ×2; 82947 ×8; 70450; 97116; 97161; 97530; 96360; 99285; U0002; J7040; J7030 ×4; G0378 ×4; 81003; 81015; J7512

== ENCOUNTER 2020-02-07 18:28 | Emergency (ER) | payer OTHER ==
--- OUTSIDE RECORDS SUMMARY | 2020-02-07 18:48 | XMS REPORT | Continuity of Care Document ---
:1940 Author Organization [facility] t Address [facility] Rohan Julien [address] [place] [id number] Care Team Providers Name Role Phone Unavailable Unavailable Unavailable Problems This patient has no known problems. Allergies, Adverse Reactions, Alerts This patient has no known allergies or adverse reactions. Medications This patient has no known medications. Procedures This patient has no known procedures. Results This patient has no known results.
--- NOTE | 2020-02-07 19:27 | RAD REPORT ---
EXAM DESCRIPTION: CT - CTHCSPWOC - 02/07/2020 7:17 pm CLINICAL HISTORY: Trauma, head and neck injury. Fall injury, headache to back of head COMPARISON: Head C Spine Mpr Wo Con dated 12/29/2018; Soft Tissue Neck W/Contr dated 12/09/2017 TECHNIQUE: Axial 5 mm thick images of the head were obtained. Axial 2 mm thick images of the cervical spine were obtained with sagittal and coronal reconstruction images generated and reviewed. All CT scans are performed using dose optimization technique as appropriate and may include automated exposure control or mA/KV adjustment according to patient size. FINDINGS: CT HEAD WITHOUT CONTRAST: No acute hemorrhage, hydrocephalus or extra-axial collection is identified.Mild generalized brain atr ophy is present with mild periventricular and deep white matter chronic microvascular ischemic change s.No areas of brain edema or midline shift. The paranasal sinuses and mastoids are clear.The calvarium is intact. Small right posterior scalp hem atoma. Heavy vertebral atherosclerosis. CT CERVICAL SPINE WITHOUT CONTRAST: No fracture or subluxation.Moderate lower cervical degenerative changes.No prevertebral soft tissues swelling is identified. IMPRESSION: No acute intracranial or cervical spine findings. Moderate cervical spondylosis.
--- NOTE | 2020-02-07 19:32 | EDPHYS ---
Physician Documentation [facility] Name: Lucy Paris Age: 79 yrs Sex: Female : 1940 Arrival Date: 02/07/2020 Time: 18:32 Bed 3 Private MD: ED Physician Aquiles Rose HPI: 02/06 18:41 This 79 yrs old Female presents to ER via EMS with complaints of Fall Injury. pm1 18:41 Details of fall: The patient fell from an upright position, while standing. Onset: The pm1 symptoms/episode began/occurred just prior to arrival. Associated injuries: The patient sustained injury to the head, contusion. The patient has experienced similar episodes in the past, a few times. Patient got up from bed and was walking to her dresser. Lost her footing and fell backwards and hit the back of her on the floor after landing on her buttocks first. No dizziness, chest pain or shortness of breath. Historical: - Allergies: 18:35 Demerol; tw2 18:35 PENICILLINS; tw2 - PMHx: 18:35 breast cancer; NO STICKS/BP IN RIGHT ARM; Diabetes - NIDDM; Hypertension; tw2 19:14 Dementia; ea - PSHx: 19:14 right mastectomy; ea - Immunization history:: Adult Immunizations. - Social history:: Smoking status: . ROS: 18:41 Constitutional: Negative for fever, chills, and weight loss, Eyes: Negative for injury, pm1 pain, redness, and discharge, Neck: Negative for injury, pain, and swelling, Cardiovascular: Negative for chest pain, palpitations, and edema, Respiratory: Negative for shortness of breath, cough, wheezing, and pleuritic chest pain, Abdomen/GI: Negative for abdominal pain, nausea, vomiting, diarrhea, and constipation, Back: Negative for injury and pain, MS/Extremity: Negative for injury and deformity, Skin: Negative for injury, rash, and discoloration. 18:41 Neuro: Positive for headache, Negative for dizziness, numbness, syncope, weakness. Exam: 18:41 Constitutional: This is a well developed, well nourished patient who is awake, alert, pm1 and in no acute distress. 18:41 Neck: Trachea midline, no thyromegaly or masses palpated, and no cervical lymphadenopathy. Supple, full range of motion without nuchal rigidity, or vertebral point tenderness. No Meningismus. 18:41 Back: No spinal tenderness. No costovertebral tenderness. Full range of motion. Skin: Warm, dry with normal turgor. Normal color with no rashes, no lesions, and no evidence of cellulitis. 18:41 Head/face: Noted is no obvious of injury or deformity except contusion, that is superficial, of the right side of the back of head. 18:41 Cardiovascular: Exam negative for acute changes, Rate: normal, Rhythm: regular, Pulses: no pulse deficits are appreciated. 18:41 Respiratory: Exam negative for acute changes, respiratory distress, shortness of breath. 18:41 Abdomen/GI: Exam negative for acute changes, Inspection: abdomen appears normal, Palpation: abdomen is soft and non-tender, in all quadrants. 18:41 Musculoskeletal/extremity: Exam is negative for acute changes, Extremities: all appear grossly normal, with no appreciated pain with palpation. 18:41 Neuro: Exam negative for acute changes, Orientation: is normal, Mentation: is normal, Motor: is normal, Sensation: is normal, no obvious gross deficits. Vital Signs: 18:32 BP 117 / 66; Pulse 86; Resp 16; Temp 98.4(O); Pulse Ox 99% on R/A; Weight 74.84 kg (R); tw2 Height 5 ft. 5 in. (165.10 cm); Pain 2/10; 20:01 BP 129 / 69; Pulse 87; Resp 18; Pulse Ox 98% ; ea 18:32 Body Mass Index 27.46 (74.84 kg, 165.10 cm) tw2 MDM: 18:37 Patient medically screened. [facility] 18:41 Data reviewed: vital signs. Data interpreted: Pulse oximetry: on room air is 99 %. pm1 Interpretation: normal. 19:31 Counseling: I had a detailed discussion with the patient and/or guardian regarding: the pm1 historical points, exam findings, and any diagnostic results supporting the discharge/admit diagnosis, radiology results, the need for outpatient follow up, to return to the emergency department if symptoms worsen or persist or if there are any questions or concerns that arise at home. 02/06 18:39 Order name: CT Head C Spine; Complete Time: 19:30 pm1 Administered Medications: No medications were administered Disposition: 02/07 11:58 Co-signature as Attending Physician, Aquiles Rose MD I agree with the assessment and [facility] plan of care. Disposition: 02/07/20 19:31 Discharged to Home. Impression: Superficial injury of head, Fall on same level, unspecified. - Condition is Stable. - Discharge Instructions: Head Injury, Adult, Fall Prevention in Hospitals, Adult. - Medication Reconciliation Form, Thank You Letter, Antibiotic Education, Prescription Opioid Use form. - Follow up: Emergency Department; When: As needed; Reason: Worsening of condition. Follow up: Private Physician; When: 2 - 3 days; Reason: Recheck today's complaints, Continuance of care, Re-evaluation by your physician. - Problem is new. - Symptoms have improved. Signatures: Dispatcher [employer] EDMS Aquiles Rose MD MD cha Marinas, Patrick, RESEARCH STAFF MEMBER RESEARCH STAFF MEMBER pm1 Eva Avila RN RN tw2 Chante Fraser RN RN ea Robles, Autumn ar5 Corrections: (The following items were deleted from the chart) 02/06 19:32 19:31 02/07/2020 19:31 Discharged to Home. Impression: Superficial injury of head. pm1 Condition is Stable. Forms are Medication Reconciliation Form, Thank You Letter, Antibiotic Education, Prescription Opioid Use. Follow up: Emergency Department; When: As needed; Reason: Worsening of condition. Follow up: Private Physician; When: 2 - 3 days; Reason: Recheck today's complaints, Continuance of care, Re-evaluation by your physician. Problem is new. Symptoms have improved. pm1 20:20 19:32 02/07/2020 19:31 Discharged to Home. Impression: Superficial injury of head; Fall ar5 on same level, unspecified. Condition is Stable. Forms are Medication Reconciliation Form, Thank You Letter, Antibiotic Education, Prescription Opioid Use. Follow up: Emergency Department; When: As needed; Reason: Worsening of condition. Follow up: Private Physician; When: 2 - 3 days; Reason: Recheck today's complaints, Continuance of care, Re-evaluation by your physician. Problem is new. Symptoms have improved. pm1 23:28 18:41 Head/face: Noted is no obvious of injury or deformity except contusion, that is pm1 superficial, of the right side of the back of head, pm1 23:28 18:41 Neuro: Exam negative for acute changes, Orientation: is normal, Mentation: is pm1 normal, Motor: is normal, Sensation: is normal, no obvious gross deficits, pm1
--- NOTE | 2020-02-07 19:32 | ER ---
Nurse's Notes [facility] Name: Lucy Paris Age: 79 yrs Sex: Female : 1940 Arrival Date: 02/07/2020 Time: 18:32 Bed 3 Private MD: Diagnosis: Superficial injury of head;Fall on same level, unspecified Presentation: 02/06 18:32 Chief complaint: EMS states: pt from [facility], states she lost her footing and fell tw2 backwards, she does have a hematoma on the posterior right side of her head, denies LOC, the floor was carpeted but it is still concrete, vs stable, BGL 263, pt does NOT take blood thinners. Coronavirus screen: At this time, the client does not indicate any symptoms associated with coronavirus-19. Ebola Screen: Patient denies travel to an Ebola-affected area in the 21 days before illness onset. Initial Sepsis Screen: Does the patient meet any 2 criteria? No. Patient's initial sepsis screen is negative. Does the patient have a suspected source of infection? No. Patient's initial sepsis screen is negative. Risk Assessment: Do you want to hurt yourself or someone else? Patient reports no desire to harm self or others. Onset of symptoms was February 07, 2020. 18:32 Method Of Arrival: EMS: [facility] tw2 18:32 Acuity: KATHRYN 3 tw2 18:35 Note provider at bedside at this time. tw2 Triage Assessment: 18:36 General: Appears in no apparent distress. obese, well groomed, Behavior is calm, tw2 cooperative, appropriate for age. Pain: Complains of pain in right parietal area and occipital area. Neuro: Level of Consciousness is awake, alert, obeys commands, Oriented to person, place, time, situation. Historical: - Allergies: 18:35 Demerol; tw2 18:35 PENICILLINS; tw2 - PMHx: 18:35 breast cancer; NO STICKS/BP IN RIGHT ARM; Diabetes - NIDDM; Hypertension; tw2 19:14 Dementia; ea - PSHx: 19:14 right mastectomy; ea - Immunization history:: Adult Immunizations. - Social history:: Smoking status: . Screenin:09 Abuse screen: Denies threats or abuse. Nutritional screening: No deficits noted. tw2 Tuberculosis screening: No symptoms or risk factors identified. Fall Risk Secondary diagnosis (15 points) impaired mobility. Assessment: 18:36 General: Appears in no apparent distress. obese, well groomed, Behavior is calm, tw2 cooperative, appropriate for age. Pain: Complains of pain in occipital area and right parietal area. Neuro: Level of Consciousness is awake, alert, obeys commands, Oriented to person, place, time, situation. Cardiovascular: Heart tones S1 S2 Patient's skin is warm and dry. Respiratory: Airway is patent Respiratory effort is even, unlabored, Respiratory pattern is regular, symmetrical, Breath sounds are clear bilaterally. GI: No signs and/or symptoms were reported involving the gastrointestinal system. Abdomen is round non-distended, obese, Bowel sounds present X 4 quads. : No signs and/or symptoms were reported regarding the genitourinary system. EENT: No signs and/or symptoms were reported regarding the EENT system. Derm: No signs and/or symptoms reported regarding the dermatologic system. Derm: swelling noted to posterior right side of head. Musculoskeletal: Range of motion: intact in all extremities. 19:18 Reassessment: Pt taken to CT. ea 19:54 Reassessment: Patient and/or family updated on plan of care and expected duration. Pain ea level reassessed. Patient is alert, oriented x 3, equal unlabored respirations, skin warm/dry/pink. Pt brother Archie [phone]. 20:00 Reassessment: Patient and/or family updated on plan of care and expected duration. Pain ea level reassessed. Patient is alert, oriented x 3, equal unlabored respirations, skin warm/dry/pink. Discharge instruction given to patient verbalized the understanding of instruction. Pt awaiting on brother for transport back home. Vital Signs: 18:32 BP 117 / 66; Pulse 86; Resp 16; Temp 98.4(O); Pulse Ox 99% on R/A; Weight 74.84 kg (R); tw2 Height 5 ft. 5 in. (165.10 cm); Pain 2/10; 20:01 BP 129 / 69; Pulse 87; Resp 18; Pulse Ox 98% ; ea 18:32 Body Mass Index 27.46 (74.84 kg, 165.10 cm) tw2 ED Course: 18:32 Patient arrived in ED. tw2 18:32 Bed in low position. Call light in reach. Side rails up X2. Pulse ox on. NIBP on. Warm tw2 blanket given. 18:34 Carlos Saez NP is PHCP. pm1 18:34 Aquiles Rose MD is Attending Physician. pm1 18:35 Triage completed. tw2 18:36 Arm band placed on. tw2 19:00 Report given to FRANDY Do. tw2 19:01 fatuma--[phone]. bd 19:18 CT Head C Spine In Process Unspecified. EDMS 19:18 Chante Fraser, FRANDY is Primary Nurse. ea 20:01 No provider procedures requiring assistance completed. Patient did not have IV access ea during this emergency room visit. Administered Medications: No medications were administered Outcome: 19:31 Discharge ordered by . pm1 20:01 Discharge instructions given to patient, Instructed on discharge instructions, follow ea up and referral plans. Demonstrated understanding of instructions, follow-up care. 20:20 Patient left the ED. ar5 Signatures: Dispatcher [employer] EDMS Barbara Rogers Carlos Saez, CHRISTOPHER RESOURCE TEACHER pm1 Eva Avila RN RN tw2 Chante Fraser, FRANDY RN Davina Ramos ar5
[2020-02-07 20:41] VITALS: TEMP 98.4
[2020-02-07 20:42] VITALS: BP 129/69; O2SAT 98
== END 2020-02-07 20:20 | disposition home or self-care (01) ==
LOC: ER 18:28
DX: S00.90XA Unspecified superficial injury of unspecified part of head, initial encounter (principal); W19.XXXA Unspecified fall, initial encounter; Y93.01 Activity, walking, marching and hiking; Y92.003 Bedroom of unspecified non-institutional (private) residence as the place of occurrence of the external cause; I10 Essential (primary) hypertension; F03.90 Unspecified dementia, unspecified severity, without behavioral disturbance, psychotic disturbance, mood disturbance, and anxiety; Z85.3 Personal history of malignant neoplasm of breast; Z88.0 Allergy status to penicillin; Z88.5 Allergy status to narcotic agent; Z90.11 Acquired absence of right breast and nipple
CPT/HCPCS: 70450; 72125; 99283